=== PATIENT | female | born 1970 | race Caucasian/White ===

== ENCOUNTER 2020-10-26 12:02 | Inpatient (IN) | payer MEDICAID, SELFPAY ==
[2020-10-26 12:05] VITALS: BP 154/86; PULSE 108; RESP 18; TEMP 37.3; O2SAT 100; BMI 24.9
--- NOTE | 2020-10-26 14:50 | ECG_ITS ---
Test Reason : PALPITATIONS Blood Pressure : / mmHG Vent. Rate : 088 BPM Atrial Rate : 088 BPM P-R Int : 150 ms QRS Dur : 092 ms QT Int : 410 ms P-R-T Axes : 022 003 000 degrees QTc Int : 496 ms Normal sinus rhythm Prolonged QT Abnormal ECG When compared with ECG of 10-JUN-2018 02:28, No significant change was found Referred By: Jenni Duffy Electronically Signed By:ROGERIO SIMMONS MD
--- NOTE | 2020-10-26 14:51 | XR_ITS ---
EXAMINATION: XR CHEST CLINICAL INFORMATION: Palpitations COMPARISON: 07/11/2017 TECHNIQUE: Frontal view of the chest was obtained. FINDINGS: No significant abnormality is noted involving the heart, lungs, mediastinum, bony thorax or soft tissues. XR/XR chest 1V IMPRESSION: Unremarkable examination.
--- NOTE | 2020-10-26 14:51 | CT_ITS ---
EXAMINATION: CT ABDOMEN AND PELVIS WITH CONTRAST CLINICAL INFORMATION: Abdominal pain, nausea and vomiting COMPARISON: 05/02/2018 TECHNIQUE: Multidetector volumetric images were obtained from the superior aspect of the liver through the pubic symphysis following administration 85 mL of Omnipaque 350 intravenous contrast. Sagittal and coronal reformatted images were obtained on the technologist's workstation. Oral contrast: No This CT examination was performed using dose optimization techniques as appropriate, variously including the following: *Automated exposure control *Adjustment of mA and/or kV according to patient size (this includes techniques or standardized protocols for targeted exams where dose is matched to indication/reason for exam; i.e. extremities or head) *Use of iterative reconstruction technique DLP: 564 mGy-cm FINDINGS: LUNG BASES: The visualized lung bases are unremarkable. LIVER, GALLBLADDER, AND BILIARY TREE: Liver normal in size showing a lobular surface contour and severe diffuse hepatic steatosis. No focal liver lesions. No intra or extrahepatic biliary dilatation. Gallbladder unremarkable. PANCREAS: Unremarkable. SPLEEN: Unremarkable. ADRENAL GLANDS: Unremarkable. KIDNEYS AND URETERS: The kidneys are normal in size, shape, and attenuation. No hydronephrosis, hydroureter, or calculi seen. No perinephric stranding. BLADDER: Unremarkable. GASTROINTESTINAL TRACT: The small and large bowel are unremarkable. The appendix is unremarkable. ABDOMINAL WALL: No significant hernia is appreciated. LYMPH NODES: Normal. VASCULAR: Unremarkable. PELVIC VISCERA: There are 2 fibroids within the uterus measuring 1.6 and 1.8 cm. OSSEOUS STRUCTURES: Unremarkable. CT/CT abdomen pelvis w con IMPRESSION: * Severe diffuse hepatic steatosis, new from the prior examination. Also new is the lobular hepatic surface contour and mildly increased size of liver since the prior examination; findings which suggest steatohepatitis. * Leiomyomatous uterus with slight interval decrease in size of the dominant 2 fibroids since the previous exam.
--- NOTE | 2020-10-26 15:19 | MHC.CARE ---
CARE Team spoke with provider who reported Pt is interested in detox for opiates and alcohol. CARE Team contacted [facility] - current bed and will add Pt to the list. [facility] is only taking walk-ins at this time.
[2020-10-26 15:54] LABS: Basophils Percent Auto 0.4 % (0-2); Eosinophils Percent Auto 0.2 % (0-4); Mean Corpuscular HGB Conc 34.4 g/dl (31.0-35.0); Mean Corpuscular Hemoglobin 33.8 pg (27.0-33.0); Mean Platelet Volume 10.1 fL (9.4-12.3); Monocytes Absolute Auto 0.6 X10*3/uL (0.1-1.2); PLT CLUMP 1; Red Cell Distribution Width 11.3 % (11.0-16.0); SCAN SMEAR FLAG 1
[2020-10-26 15:56] LABS: Hematocrit 41.8 % (37-47); Hemoglobin 14.4 g/dl (12.0-16.0); Imm Gran Abs Auto 0.03 X10*3/uL (0.00-0.03); Imm Gran Pct Auto 0.5 % (0.0-0.4); Lymphocytes Absolute Auto 0.5 X10*3/uL (1.2-4.9); Lymphocytes Percent Auto 9.1 % (20-40); Mean Corpuscular Volume 98.1 fL (80-98); Neutrophils Absolute Auto 4.5 X10*3/uL (2.0-8.3); Neutrophils Percent Auto 79.8 % (45-73); Platelet Count 104 X10*3/uL (160-400); Red Blood Count 4.26 X10*6/uL (4.20-5.50); White Blood Count 5.6 X10*3/uL (4.8-10.8)
[2020-10-26] MEDS: LORazepam 2 MG/ML VIAL 1 MG IVPUSH (15:59)
[2020-10-26] MEDS: 0.9 % Sodium Chloride 1,000 ML 999 ML IVCONT (15:59)
[2020-10-26 16:00] LABS: INTERNATIONAL NORM RATIO 1.3 (0.9-1.1); MANUAL DIFF FLAG SCAN; Prothrombin Time 15.3 SEC (10.8-13.0)
[2020-10-26] MEDS: Famotidine/PF 20 MG/2 ML VIAL IVPUSH (16:00)
[2020-10-26] MEDS: Magnesium Hydrox/Alum Hydrox 30 ML ORAL.SUSP PO (16:00)
[2020-10-26 16:03] LABS: Partial Thromboplastin Time 37.4 SEC (24.1-38.0)
[2020-10-26] MEDS: Metoclopramide HCl 10 MG/2 ML VIAL IVPUSH (16:15)
--- NOTE | 2020-10-26 16:21 | ED_ITS ---
HPI - General Adult General Chief complaint: General Medical Stated complaint: vomiting Time Seen by Provider: 10/26/20 14:34 Source: patient Mode of arrival: ambulatory History of Present Illness HPI narrative: 49-year-old female with a past medical history ETOH/substance abuse presenting to the ED complaining of withdrawal symptoms, and requesting detox. Reports feeling tremulous, abdominal cramping, nausea, vomiting, decreased p.o. intake, chest discomfort/palpitations x 3 days. Admits to usually drinking a pt of vodka and wine daily, last drink was 3 days ago. Also reports using about 10 bags of heroin daily, last use 3 days ago. Denies SI/HI. Also admits to tingling in feet x months, does report previously injecting heroin into feet, and since feels like they are sleeping. Denies injury/trauma, fever, chills, contact with COVID-19, SOB, cough, dysuria. Denies history of DTs/seizure Onset (ago): day(s) Related Data Allergies Allergy/AdvReac Type Severity Reaction Status Date / Time SEASONAL ALLERGIES Allergy Unknown SNEEZING, Uncoded 07/18/20 17:10 ITCHING Review of Systems Review of Systems: Constitutional: No Weight loss, No Fever, No Chills, No Night Sweats, No Fatigue, No Malaise ENT/Mouth: No Nasal Congestion, No Sinus Pain, No Hoarseness, No sore throat, No Rhinorrhea Cardiovascular: + Chest Pain, No SOB, No Dyspnea on Exertion, No Edema, + Palpitations Respiratory: No Cough, No Sputum, No Wheezing, No Smoke Exposure, No Dyspnea Gastrointestinal: + Nausea, + Vomiting, No Diarrhea, No Constipation, + Abdominal pain Genitourinary: No irregular bleeding, No Dysuria, No Urinary Frequency, No Hematuria Musculoskeletal: No joint pain, No Myalgias, No Joint Swelling Skin: No Skin Lesions, No rash Psych:, No Depression, No SI/HI Yes all other systems are reviewed and are negative PMFSH Past Medical History Attestation statement: The following information was validated with the patient. Medical History (Updated 10/26/20 @ 16:31 by SUSAN Hernandez) delivery delivered Social History Social History Advance Directives: No Advance Directives Information Provided: No Physical Exam Vital Signs: Vital Signs: Last Vital Signs Temp 99.1 F 10/26/20 16:28 Pulse 90 10/26/20 16:28 Resp 24 H 10/26/20 16:28 BP 122/67 10/26/20 16:28 Pulse Ox 95 10/26/20 16:28 Body Mass Index 24.9 Const: Other: Tremulous General: cooperative and anxious Orientation/consciousness: patient oriented x3 Limitations: no limitations HENMT: Head: Yes normal to inspection Ears: hearing grossly normal bilaterally General nose exam: Normal external nose present Face and sinus: Yes normal facial exam Mouth: Normal oral and palatal mucosa present Eyes: General: appearance normal, both eyes and all related structures EOM: EOMs intact bilaterally Neck: Neck: Yes normal visual inspection and Yes no meningeal signs Resp: Effort & Inspection: normal respiratory effort Auscultation: clear to auscultation bilaterally, no rhonchi and no wheezes Cardio: Rate: regular rate Heart sounds: S1 normal heart sound present and S2 normal heart sound present Peripheral pulses: dorsalis pedis present GI: Inspection: Yes normal to inspection Palpation (GI): Soft to palpation, Tenderness to palpation present (GI) (Diffusely), no guarding and not rigid : General: Yes no CVA tenderness Back/Spine/Pelvis: Back: no CVA tenderness Skin: Rashes: no rashes Wounds: no wounds Neuro: Other: Sensation intact to light touch throughout General: patient oriented x3, tone normal, moves all extremities, no meningeal signs and no focal motor deficits Extrem: Other: Lower extremities are vascularly intact. Sensation intact. Full range of motion intact. No calf tenderness, swelling, or deformity General: Yes normal to inspection Course Course Course Narrative: * Bilirubin/AST/ALT elevated likely chronically from alcohol abuse likely from dehydration/ETOH * CXR unremarkable 1699--ED care transferred to [facility] pending remaining labs, CT AP, and care team consult for detox Medical Decision Making MDM Narrative Medical decision making narrative: 49-year-old female with a past medical history ETOH/substance abuse presenting to the ED complaining of withdrawal symptoms, and requesting detox. Reports feeling tremulous, abdominal cramping, nausea, vomiting, decreased p.o. intake, chest discomfort/palpitations x 3 days. On exam low-grade temp 99.1?, tachycardic, tremulous, abdomen soft diffusely tender, no rebound or guarding. Concern for alcohol withdrawal vs dehydration vs intrabdominal pathology including pancreatitis/diverticulitis/appendicitis. Lower concern for ACS/PE Plan: EKG, labs, UA, CT AP, IVF/symptomatic therapy, care Team consult for detox Lab Data Result diagrams: 10/26/20 15:40 10/26/20 15:40 Labs: Lab Results 10/26/20 10/26/20 10/26/20 Range/Units 15:40 15:40 15:40 WBC 5.6 (4.8-10.8) X10*3/uL RBC 4.26 (4.20-5.50) X10*6/uL Hgb 14.4 (12.0-16.0) g/dl Hct 41.8 (37-47) % MCV 98.1 H (80-98) fL MCH 33.8 H (27.0-33.0) pg MCHC 34.4 (31.0-35.0) g/dl RDW 11.3 (11.0-16.0) % Plt Count 104 L (160-400) X10*3/uL MPV 10.1 (9.4-12.3) fL Immature Gran % (Auto) 0.5 H (0.0-0.4) % Neut % (Auto) 79.8 H (45-73) % Lymph % (Auto) 9.1 L (20-40) % [place] % (Auto) 10.0 (2-11) % Eos % (Auto) 0.2 (0-4) % Baso % (Auto) 0.4 (0-2) % Lymph # (Auto) 0.5 L (1.2-4.9) X10*3/uL [place] # (Auto) 0.6 (0.1-1.2) X10*3/uL Eos # (Auto) 0.0 (0.0-0.4) X10*3/uL Baso # (Auto) 0.0 (0.0-0.2) X10*3/uL Abs Immat Gran (auto) 0.03 (0.00-0.03) X10*3/uL Absolute Neuts (auto) 4.5 (2.0-8.3) X10*3/uL Absolute Nucleated RBC 0.000 (0.0-0.012) X10*3/uL Nucleated RBC % (auto) 0.0 (0.0-0.2) /100WBC Smear Tech's Comments VERIFIED PT 15.3 H (10.8-13.0) SEC INR 1.3 H (0.9-1.1) APTT 37.4 (24.1-38.0) SEC Sodium 134 L (135-145) mmol/L Potassium 3.7 (3.3-5.1) mmol/l Chloride 89 L (96-108) mmol/L Carbon Dioxide 27 (22-29) mmol/L Anion Gap 22 H (12-20) BUN 9 (9-16) mg/dL Creatinine 0.66 (0.5-1.4) mg/dL Estim Creat Clear Calc 94.1 Estimated GFR > 60 Random Glucose 94 (60-115) mg/dL Calcium 9.4 (8.4-10.2) mg/dL Magnesium 2.0 (1.6-2.6) mg/dL Total Bilirubin 6.1 H (0.0-1.0) mg/dL Direct Bilirubin 3.6 H (0.0-0.5) mg/dL AST 189 H (5-31) U/L ALT 73 H (0-31) U/L Alkaline Phosphatase 127 H (39-117) U/L Troponin I High Sens (<3.5-17.0) ng/L Total Protein 8.7 H (6.5-8.0) g/dL Albumin 4.5 (3.5-5.0) g/dL Lipase (8-78) U/L 10/26/20 10/26/20 Range/Units 15:40 15:40 WBC (4.8-10.8) X10*3/uL RBC (4.20-5.50) X10*6/uL Hgb (12.0-16.0) g/dl Hct (37-47) % MCV (80-98) fL MCH (27.0-33.0) pg MCHC (31.0-35.0) g/dl RDW (11.0-16.0) % Plt Count (160-400) X10*3/uL MPV (9.4-12.3) fL Immature Gran % (Auto) (0.0-0.4) % Neut % (Auto) (45-73) % Lymph % (Auto) (20-40) % [place] % (Auto) (2-11) % Eos % (Auto) (0-4) % Baso % (Auto) (0-2) % Lymph # (Auto) (1.2-4.9) X10*3/uL [place] # (Auto) (0.1-1.2) X10*3/uL Eos # (Auto) (0.0-0.4) X10*3/uL Baso # (Auto) (0.0-0.2) X10*3/uL Abs Immat Gran (auto) (0.00-0.03) X10*3/uL Absolute Neuts (auto) (2.0-8.3) X10*3/uL Absolute Nucleated RBC (0.0-0.012) X10*3/uL Nucleated RBC % (auto) (0.0-0.2) /100WBC Smear Tech's Comments PT (10.8-13.0) SEC INR (0.9-1.1) APTT (24.1-38.0) SEC Sodium (135-145) mmol/L Potassium (3.3-5.1) mmol/l Chloride (96-108) mmol/L Carbon Dioxide (22-29) mmol/L Anion Gap (12-20) BUN (9-16) mg/dL Creatinine (0.5-1.4) mg/dL Estim Creat Clear Calc Estimated GFR Random Glucose (60-115) mg/dL Calcium (8.4-10.2) mg/dL Magnesium (1.6-2.6) mg/dL Total Bilirubin (0.0-1.0) mg/dL Direct Bilirubin (0.0-0.5) mg/dL AST (5-31) U/L ALT (0-31) U/L Alkaline Phosphatase (39-117) U/L Troponin I High Sens 16.5 (<3.5-17.0) ng/L Total Protein (6.5-8.0) g/dL Albumin (3.5-5.0) g/dL Lipase 81 H (8-78) U/L Discharge Plan Discharge Clinical Impression: Alcohol withdrawal Qualifiers: Complication of substance-induced condition: with unspecified complication Qualified Code(s): F10.239 - Alcohol dependence with withdrawal, unspecified
[2020-10-26 16:22] LABS: Alanine Aminotransferase 73 U/L (0-31); Albumin Level 4.5 g/dL (3.5-5.0); Alkaline Phosphatase 127 U/L (39-117); Anion Gap 22 (12-20); Aspartate Amino Transferase 189 U/L (5-31); Bilirubin Direct 3.6 mg/dL (0.0-0.5); Bilirubin Total 6.1 mg/dL (0.0-1.0); Blood Urea Nitrogen 9 mg/dL (9-16); Calcium 9.4 mg/dL (8.4-10.2); Carbon Dioxide 27 mmol/L (22-29); Chloride 89 mmol/L (96-108); Creatinine Clr Calc Pharmacy 94.1; Estimated Glomerular Filt Rate > 60; Glucose Random 94 mg/dL (60-115); Potassium 3.7 mmol/l (3.3-5.1); Sodium 134 mmol/L (135-145); Total Protein 8.7 g/dL (6.5-8.0)
[2020-10-26 16:24] LABS: Troponin-I High Sensitivity 16.5 ng/L (<3.5-17.0)
[2020-10-26 16:28] VITALS: BP 122/67; PULSE 90; RESP 24; TEMP 37.3; O2SAT 95
[2020-10-26 16:33] LABS: Lipase 81 U/L (8-78)
[2020-10-26 16:36] LABS: SLIDE REVIEW VERIFIED
--- NOTE | 2020-10-26 16:57 | MHC.CARE ---
CARE Team followed up with Pt regarding detox referral. Pt is only interested in staying locally at this time. CARE Team updated Pt that [facility] does not have a bed however she is placed on there list. Pt is not interested in doing a walk in at [facility] detox. Pt reports she stopped drinking alcohol this past week and now would like to detox from opiates. Pt reports she is currently on [facility] through [facility]. Pt reported she would be interested in speaking with a disaster recovery manager. CARE Team to refer Pt to a disaster recovery manager and provide [facility] with updated clinical information to support referral.
[2020-10-26] MEDS: iohexoL 350 MG/ML 100 ML INFUS..BTL IV (17:26)
[2020-10-26] MEDS: LORazepam 2 MG/ML VIAL 0.5 MG IVPUSH (19:27)
[2020-10-26 19:54] LABS: COVID-19 Test Negative (Negative); IDNOW Serial# 9DD0AD1C
--- NOTE | 2020-10-26 20:06 | PM.IMHP ---
History of Present Illness Date of Service: 10/26/20 Chief Complaint: Alcohol withdrawal This is a 49-year-old female with past medical history of alcohol abuse as well as heroin abuse who presents to the hospital with complaints of withdrawal symptoms. Patient reports that she stop drinking on with the intention to detox and has now been having nausea, vomiting, diarrhea, shaking all over, jitters, nervousness, palpitations, and she also believes that she had a seizure episode on wednesday night as she woke up and had soiled herself with feces and she doesnt remember how or why. Patient reports that she has so many episodes of vomiting that she is now vomiting slight amount of bright red blood. She has no melena or bright red blood per rectum. She has diffuse abdominal pain from all the vomiting. Denies any chest pain, headache, change in vision, no shortness of breath, no urinary symptoms and no lower extremity She also used heroin on wednesday night after being sober for one yr. On arrival to the ED hemodynamically stable with a pulse rate of 108, respiratory rate of 18, blood pressure of 154/86, satting 100% on room air. Patient had a temperature of 99.1? Labs are significant for WBC count of 5.6, hemoglobin of 14.4, PT of 15.3, INR of 1.3, sodium of 134, BUN of 9, creatinine of 0.66, total bili of 6.1, direct bili of 3.6, AST of 189, ALT of 73, alk-phos 127 on lipase of 81. COVID negative, Which shows severe diffuse hepatic steatosis new from the prior examination in 2018, Past medical history: Alcohol abuse, heroin abuse, depression Surgical history: Family history: Does not know Social history: Comes from home, lives with her 14-year-old daughter, denies tobacco, drinks all day including vodka and wine, denies any history of withdrawal seizures. uses heroin but is also on Suboxone Review of Systems Review of Systems: Yes all other systems are reviewed and are negative [facility] Medical History (Updated 10/26/20 @ 20:24 by Verona Jarvis MD) delivery delivered Opioid abuse Social History Alcohol intake: former Smoking Status: Smoker, status unknown Use of substances other than those prescribed or required for medical reasons: Yes Substance Use Type: IV Drugs Substance Use Frequency: Chronic Longstanding Advance Directives: No Advance Directives Information Provided: No Meds Allergies Allergy/AdvReac Type Severity Reaction Status Date / Time SEASONAL ALLERGIES Allergy Unknown SNEEZING, Uncoded 07/18/20 17:10 ITCHING Home Medications Medication Instructions Recorded Confirmed Type buprenorphine-naloxone [Suboxone] 1 film BUCCAL DAILY 10/26/20 10/26/20 History Physical Exam Vital Signs and Narrative: Vital Signs: Last Vital Signs Temp 99.1 F 10/26/20 16:28 Pulse 90 10/26/20 16:28 Resp 24 H 10/26/20 16:28 BP 122/67 10/26/20 16:28 Pulse Ox 95 10/26/20 16:28 Body Mass Index 24.9 Const: Other: Ill-appearing General: cooperative and no acute distress Orientation/consciousness: patient oriented x3 Eyes: General: appearance normal, both eyes and all related structures Resp: Effort & Inspection: normal respiratory effort and able to speak in complete sentences Cardio: Rate: regular rate Rhythm: regular rhythm GI: Palpation (GI): Soft to palpation Auscultation: normal bowel sounds Skin: General skin exam: no rashes or lesions noted Neuro: General: patient oriented x3 Cognition (Neuro): normal cognition Extrem: General: Yes normal to inspection and Yes no pedal edema Results Labs CBC and Chem 7: 10/26/20 15:40 10/26/20 15:40 Labs: Laboratory Results - last 24 hr 10/26/20 10/26/20 10/26/20 15:40 15:40 15:40 MCV 98.1 H MCH 33.8 H MCHC 34.4 RDW 11.3 Plt Count 104 L MPV 10.1 Immature Gran % (Auto) 0.5 H Neut % (Auto) 79.8 H Lymph % (Auto) 9.1 L [place] % (Auto) 10.0 Eos % (Auto) 0.2 Baso % (Auto) 0.4 Lymph # (Auto) 0.5 L [place] # (Auto) 0.6 Eos # (Auto) 0.0 Baso # (Auto) 0.0 Abs Immat Gran (auto) 0.03 Absolute Neuts (auto) 4.5 Absolute Nucleated RBC 0.000 Nucleated RBC % (auto) 0.0 Smear Tech's Comments VERIFIED PT 15.3 H INR 1.3 H APTT 37.4 Anion Gap 22 H Estim Creat Clear Calc 94.1 Estimated GFR > 60 Random Glucose 94 Calcium 9.4 Magnesium 2.0 Total Bilirubin 6.1 H Direct Bilirubin 3.6 H AST 189 H ALT 73 H Alkaline Phosphatase 127 H Troponin I High Sens Total Protein 8.7 H Albumin 4.5 Lipase COVID-19 ([facility]) COVID-19 Clin Com 10/26/20 10/26/20 10/26/20 15:40 15:40 19:32 MCV MCH MCHC RDW Plt Count MPV Immature Gran % (Auto) Neut % (Auto) Lymph % (Auto) [place] % (Auto) Eos % (Auto) Baso % (Auto) Lymph # (Auto) [place] # (Auto) Eos # (Auto) Baso # (Auto) Abs Immat Gran (auto) Absolute Neuts (auto) Absolute Nucleated RBC Nucleated RBC % (auto) Smear Tech's Comments PT INR APTT Anion Gap Estim Creat Clear Calc Estimated GFR Random Glucose Calcium Magnesium Total Bilirubin Direct Bilirubin AST ALT Alkaline Phosphatase Troponin I High Sens 16.5 Total Protein Albumin Lipase 81 H COVID-19 ([facility]) Negative COVID-19 Clin Com See Note Imaging Radiologist's Impressions: Impressions Abdomen/Pelvis CT 10/26/20 14:51 IMPRESSION: * Severe diffuse hepatic steatosis, new from the prior examination. Also new is the lobular hepatic surface contour and mildly increased size of liver since the prior examination; findings which suggest steatohepatitis. * Leiomyomatous uterus with slight interval decrease in size of the dominant 2 fibroids since the previous exam. Chest X-Ray 10/26/20 14:51 IMPRESSION: Unremarkable examination. Assessment and Plan (1) Alcohol withdrawal: Qualifiers: Complication of substance-induced condition: with unspecified complication Qualified Code(s): F10.239 - Alcohol dependence with withdrawal, unspecified Status: Acute (2) Opioid abuse: Status: Acute This is a 49-year-old female with past medical history of alcohol and opioid abuse who presents to the hospital withdrawal. Patient reports that she quit drinking on and may have had a seizure episode on Wednesday night. # alcohol withdrawal - patient started on phenobarbital in the ED will continue - thiamine, folic acid - patient is also interested in detoxing completely therefore care team is consulted # opioid abuse - patient reports that she was sober for 1 year, was started on Suboxone, but the labs on Wednesday night - will start on hydroxyzine and clonidine for withdrawal symptoms - continue Suboxone # hemoptysis - most likely secondary to Coco-Mendoza in the setting of frequent vomiting - H&H stable - will start her on Prilosec 20 b.i.d. - and monitor for any recurrent bleed - follow H&H daily unless has acute bleed # vomiting - secondary to withdrawal, started on Zofran DVT prophylaxis: SCDs as patient did have hemoptysis
[2020-10-26 20:25] VITALS: BP 139/70; PULSE 93; RESP 22; O2SAT 95
[2020-10-26] MEDS: PHENobarbitaL sodium 130 MG/ML VIAL 175 MG IM (20:27)
[2020-10-26 22:12] VITALS: BP 146/80; PULSE 98; RESP 18; TEMP 36.2; O2SAT 95
[2020-10-26] MEDS: 0.9 % Sodium Chloride 1,000 ML 100 ML IVCONT (22:43)
[2020-10-26] MEDS: Thiamine HCL 100 MG TABLET PO (22:50)
[2020-10-26] MEDS: Folic Acid 1 MG TABLET PO (22:50)
[2020-10-26] MEDS: Flu Vacc QS2020-21(6mos up)/PF 0.5 ML SYRINGE IM (22:50)
[2020-10-26] MEDS: PHENobarbitaL sodium 130 MG/ML VIAL 131 MG IM (22:54)
[2020-10-26 23:36] VITALS: BP 134/80; PULSE 103; RESP 19; TEMP 37; O2SAT 94
[2020-10-27 02:15] VITALS: BP 138/69; PULSE 78; RESP 18; O2SAT 98
[2020-10-27] MEDS: PHENobarbitaL sodium 130 MG/ML VIAL 131 MG IM (02:27)
[2020-10-27 03:19] VITALS: RESP 18
[2020-10-27 05:57] LABS: Basophils Percent Auto 0.7 % (0-2); Eosinophils Percent Auto 0.2 % (0-4); Hematocrit 39.2 % (37-47); Hemoglobin 13.3 g/dl (12.0-16.0); MANUAL DIFF FLAG SCAN; Mean Corpuscular HGB Conc 33.9 g/dl (31.0-35.0); Monocytes Percent Auto 11.6 % (2-11); PLT CLUMP 1; SCAN SMEAR FLAG 1
[2020-10-27 05:59] LABS: Imm Gran Abs Auto 0.01 X10*3/uL (0.00-0.03); Imm Gran Pct Auto 0.2 % (0.0-0.4); Lymphocytes Percent Auto 22.6 % (20-40); Mean Corpuscular Hemoglobin 33.5 pg (27.0-33.0); Mean Corpuscular Volume 98.7 fL (80-98); Mean Platelet Volume 10.5 fL (9.4-12.3); Monocytes Absolute Auto 0.5 X10*3/uL (0.1-1.2); Neutrophils Absolute Auto 2.8 X10*3/uL (2.0-8.3); Neutrophils Percent Auto 64.7 % (45-73); Red Blood Count 3.97 X10*6/uL (4.20-5.50); Red Cell Distribution Width 11.1 % (11.0-16.0); White Blood Count 4.4 X10*3/uL (4.8-10.8)
[2020-10-27 06:10] LABS: Platelet Count 83 X10*3/uL (160-400)
[2020-10-27 06:24] LABS: Anion Gap 14 (12-20); Blood Urea Nitrogen 9 mg/dL (9-16); Calcium 8.5 mg/dL (8.4-10.2); Carbon Dioxide 27 mmol/L (22-29); Chloride 98 mmol/L (96-108); Creatinine Clr Calc Pharmacy 95.5; Estimated Glomerular Filt Rate > 60; Glucose Random 97 mg/dL (60-115); Potassium 3.8 mmol/l (3.3-5.1); Sodium 135 mmol/L (135-145)
[2020-10-27] MEDS: Omeprazole 20 MG CAPSULE.DR PO ×2 (06:39→16:34)
[2020-10-27 07:01] LABS: Glucose Urine UA NEG (NEG); Leukocyte Esterase Urine NEG (NEG); Nitrite Urine NEG (NEG); PH 8.5 (5.0-8.0); Specific Gravity - Urine 1.015 (1.005-1.025); Urine Blood NEG (NEG); Urine Ketones 40 MG/DL (NEG); Urine Protein NEG (NEG-TRACE)
[2020-10-27 07:06] LABS: Appearance Urine CLEAR; Color Urine DARK YELLOW
[2020-10-27 07:26] VITALS: BP 140/82; PULSE 98; RESP 18; TEMP 36.4; O2SAT 96
[2020-10-27 07:33] LABS: Amphetamine Screen Urine Not Detected (Not Detect); Barbiturates, Urine POSITIVE (Not Detect); Benzodiazepines Screen Urine Not Detected (Not Detect); Cannabinoid Screen Urine Not Detected (Not Detect); Cocaine Screen Urine Not Detected (Not Detect); Opiate Screen Urine POSITIVE (Not Detect); Phencyclidine Screen Urine Not Detected (Not Detect)
[2020-10-27] MEDS: 0.9 % Sodium Chloride 1,000 ML 100 ML IVCONT ×2 (07:46→17:25)
[2020-10-27 08:06] LABS: SLIDE REVIEW VERIFIED
[2020-10-27] MEDS: PHENobarbitaL 30 MG TABLET 45 MG PO ×2 (09:14→21:11)
[2020-10-27] MEDS: Thiamine HCL 100 MG TABLET PO (09:14)
[2020-10-27] MEDS: Folic Acid 1 MG TABLET PO (09:14)
[2020-10-27] MEDS: Buprenorphine/Naloxone 8/2 mg FILM 1 FILM BUCCAL (09:15)
--- NOTE | 2020-10-27 10:00 | MHC.CM.PN ---
PATIENT IS INDEPENDENT WITH HER ADLS. NO DME OR VNA SERVICES. SHE MAY REQUIRE A WORK NOTE UPON DISCHARGE. PATIENT LIVES ALONE. SHE STATES THAT HER 14 YEAR OLD DAUGHTER LIVES WITH THE MATERNAL GRANDMOTHER. SHE REPORTS THAT THIS [employer] WAS PARTICULARLY DIFFICULT, SHE IS NOT ABLE TO SEE HER DAUGHTER OR MOTHER DUE TO COVID CONCERNS. PATIENT IS ASKING TO BE ABLE TO GET SOME SLEEP, SHE REPORTS HAVING VERY LITTLE SLEEP IN THE PAST 3 DAYS. SHE IS AWARE THAT CASE MANAGEMENT CAN ASSIST WITH HCP DOCUMENTATION ONCE SHE IS FEELING BETTER
--- NOTE | 2020-10-27 10:07 | HO.PM.IMPN ---
Subjective Subjective Date of Service: 10/27/20 Interval History: Seen in f/u for alcohol withdrawal and alcoholic gastritis ROS: no nausea, abdominal pain, no confusion, has tremors Physical Exam Vital Signs: Vital Signs: Last Vital Signs Temp 97.6 F 10/27/20 07:26 Pulse 98 10/27/20 07:26 Resp 18 10/27/20 07:26 BP 140/82 H 10/27/20 07:26 Pulse Ox 96 10/27/20 07:26 Body Mass Index 24.9 General: AO X 3, no acute distress Resp: CTA bilateral CVS: S1,S2,RRR GI: +BS, mild epig tenderness, no distention Skin: No rash Neuro: motor grossly intact, noted tremors in hands Psych: appropriate affect Objective Data Current Medications Generic Name Dose Route Start Last Admin Trade Name Freq PRN Reason Stop Dose Admin Acetaminophen 650 mg 10/26/20 20:19 Acetaminophen 325 Mg Tablet PO Q6H PRN Pain, Mild (Pain Scale 1-3) Buprenorphine/Naloxone 1 film 10/27/20 09:00 10/27/20 09:15 Buprenorphine/Naloxone 8/2 Mg Film BUCCAL 1 film DAILY MARYANNE Administration Clonidine HCl 0.05 mg 10/26/20 20:19 Clonidine Hcl 0.1 Mg Tablet PO BID PRN withdrawal Protocol Docusate Sodium 100 mg 10/26/20 22:11 Docusate Sodium 100 Mg Capsule PO DAILY PRN Constipation Folic Acid 1 mg 10/26/20 20:30 10/27/20 09:14 Folic Acid 1 Mg Tablet PO 1 mg DAILY MARYANNE Administration Hydroxyzine HCl 25 mg 10/26/20 20:19 Hydroxyzine Hcl 25 Mg Tablet PO Q8H PRN anxiety/restlessness Sodium Chloride 1,000 mls @ 100 mls/hr 10/26/20 20:30 10/27/20 07:46 Ns IVCONT 100 mls/hr .Q10H MARYANNE Administration Omeprazole 20 mg 10/27/20 06:30 10/27/20 06:39 Omeprazole 20 Mg Capsule. PO 20 mg BID@0630,1630 MARYANNE Administration Ondansetron HCl 4 mg 10/26/20 20:19 Ondansetron Hcl 4 Mg/2 Ml Vial IVPUSH Q8H PRN Nausea and Vomiting Pharmacy Consult 1 each 10/26/20 20:02 Consult Rx Perform Med Rec MISCELLANE ONCE PRN Consult order Phenobarbital 45 mg 10/27/20 09:00 10/27/20 09:14 Phenobarbital 30 Mg Tablet PO 10/28/20 21:01 45 mg BID MARYANNE Administration Phenobarbital 30 mg 10/29/20 09:00 Phenobarbital 30 Mg Tablet PO 10/30/20 21:01 BID MARYANNE Phenobarbital 30 mg 10/31/20 09:00 Phenobarbital 30 Mg Tablet PO 11/01/20 09:01 DAILY MARYANNE Sodium Chloride 3 ml 10/27/20 00:00 10/27/20 07:46 0.9 % Sodium Chloride Flush 3 Ml Syringe IVFLUSH Not Given QSHIFT MARYANNE Thiamine HCl 100 mg 10/26/20 20:30 10/27/20 09:14 Thiamine Hcl 100 Mg Tablet PO 100 mg DAILY MARYANNE Administration Labs CBC & Chem 7: 10/27/20 05:42 10/27/20 05:42 Assessment and Plan (1) Alcohol withdrawal: Status: Acute (2) Opioid abuse: Status: Acute Assessment and Plan: 49-year-old female with past medical history of alcohol and opioid abuse who presents to the hospital withdrawal. Patient reports that she quit drinking on and may have had a seizure episode on Wednesday night--Normally drinks alot . # alcohol withdrawal with likely withdrawal seizure - continue phenobarbital - thiamine, folic acid - patient is also interested in detoxing completely therefore CARE consult # opioid abuse - patient reports that she was sober for 1 year, was started on Suboxone, but relapsed 2 days ago - hydroxyzine and clonidine for withdrawal symptoms - continue Suboxone -Addiction consult tomorrow # hemoptysis - most likely secondary to Coco-Mendoza in the setting of frequent vomiting - H&H stable - IV Pepcid x today and oral PPI starting tomorrow - and monitor for any recurrent bleed - If not improving then GI consult # vomiting - secondary to withdrawal and probably alcoholic gastritis - Zofran PRN DVT prophylaxis: SCDs as patient did have hemoptysis
[2020-10-27] MEDS: Famotidine/PF 20 MG/2 ML VIAL IVPUSH ×2 (12:15→21:10)
[2020-10-27 14:00] VITALS: BP 133/85; PULSE 94; RESP 18; TEMP 37.1; O2SAT 97
[2020-10-27 15:45] VITALS: BP 135/82; PULSE 86; RESP 18; TEMP 37.1; O2SAT 96
--- NOTE | 2020-10-27 18:06 | MHC.RECOVSUP ---
Meet with Patient, Patient refused any services.. stating I just had a relapse. I'm going back on MAT( Suboxone) and i just spoke with my sponsor.
[2020-10-27] MEDS: Melatonin 3 MG TABLET 6 MG PO (22:12)
[2020-10-28] VITALS: BP 147/90; PULSE 93; RESP 18; TEMP 37.4; O2SAT 96
[2020-10-28] MEDS: 0.9 % Sodium Chloride Flush 3 ML SYRINGE IVFLUSH (00:50)
[2020-10-28] MEDS: Omeprazole 20 MG CAPSULE.DR PO (05:57)
[2020-10-28 06:48] LABS: Hematocrit 40.6 % (37-47); Hemoglobin 13.7 g/dl (12.0-16.0); Mean Corpuscular HGB Conc 33.7 g/dl (31.0-35.0); Mean Corpuscular Hemoglobin 33.6 pg (27.0-33.0); Mean Corpuscular Volume 99.5 fL (80-98); Red Blood Count 4.08 X10*6/uL (4.20-5.50); White Blood Count 5.4 X10*3/uL (4.8-10.8)
[2020-10-28 06:54] LABS: Platelet Count 87 X10*3/uL (160-400)
[2020-10-28 07:29] VITALS: BP 139/87; PULSE 98; RESP 18; TEMP 36.6; O2SAT 97
[2020-10-28] MEDS: Buprenorphine/Naloxone 8/2 mg FILM 1 FILM BUCCAL (09:26)
[2020-10-28] MEDS: PHENobarbitaL 30 MG TABLET 45 MG PO (09:27)
[2020-10-28] MEDS: Thiamine HCL 100 MG TABLET PO (09:28)
[2020-10-28] MEDS: Folic Acid 1 MG TABLET PO (09:29)
--- NOTE | 2020-10-28 09:29 | P.DS_ITS ---
DS: Providers Provider Date of admission: 10/26/20 20:02 Primary care physician: Alice Martinez MD Consults: 10/26/20 14:50 Consult to Care Team Stat Comment: Reason for consultation: detox DS: Diagnosis Discharge Diagnosis (1) Alcohol withdrawal: Status: Acute (2) Opioid abuse: Status: Acute DS: Medications Discharge Medications Home Medications: Home Medications Medication Instructions Recorded Confirmed buprenorphine-naloxone [Suboxone] 1 film BUCCAL DAILY 10/26/20 10/26/20 DS: Summary Hospital Course Hospital Course: 49-year-old female with past medical history of alcohol and opioid abuse who presents to the hospital withdrawal. Patient reports that she quit drinking on and may have had a seizure episode on Wednesday night--Normally drinks alot . # alcohol withdrawal with likely withdrawal seizure--Treated with Phenobarbital and vitamin and presently not withdrawing. Advised to avoid drinking alcohol and to seek help with resources given by CARE team. And to avoid driving at least 3 months seizure free # opioid abuse - patient reports that she was sober for 1 year, was started on Suboxone, but relapsed 2 days ago - hydroxyzine and clonidine for withdrawal symptoms - continue Suboxone -offer addiction consult but not interested at this time # hemoptysis - most likely secondary to Coco-Mendoza in the setting of frequent vomiting - H&H stable--No further epsisodes # vomiting - secondary to withdrawal and probably alcoholic gastritis, treated with Zofran prn. #Fattty liver disease/elevated LFTS to avoid alcohol, tyelenol Status at Discharge Functional status at discharge: independent ambulation Time Spent with Patient Time attestation: Total time spent providing and/or coordinating discharge services: Physical Exam Vital Signs: Vital Signs: Last Vital Signs Temp 97.9 F 10/28/20 07:29 Pulse 98 10/28/20 07:29 Resp 18 10/28/20 07:29 BP 139/87 10/28/20 07:29 Pulse Ox 97 10/28/20 07:29 Body Mass Index 24.9 General: AO X 3, no acute distress Resp: CTA bilateral CVS: S1,S2,RRR GI: +BS, NT, no distention Skin: No rash Neuro: motor grossly intact Psych: appropriate affect a DS: Data Data Completed and Pending Labs on day of discharge: 10/26/20 14:50 ECG 12 lead EKG Stat EKG Documentation DIRECTED Famotidine/PF [Pepcid/PF] 20 mg IVPUSH ONCE ONE Magnesium Hydrox/Alum Hydrox [Maalox] 30 ml PO ONCE ONE ondansetron HCL [Zofran] 4 mg IVPUSH ONCE ONE 10/26/20 14:51 CT abdomen pelvis w con Stat XR chest 1V Stat 10/26/20 14:52 LORazepam [Ativan] 1 mg IVPUSH ONCE ONE 10/26/20 15:00 0.9 % Sodium Chloride [Ns] 1,000 ml IVCONT 999 mls/hr 10/26/20 15:40 Basic Metabolic Panel Stat Complete Blood Count Auto Diff Stat Lipase Stat Liver Panel Stat Magnesium Stat Partial Thromboplastin Time Stat Prothrombin Time INR Stat SLIDE REVIEW Stat Troponin-I High Sensitivity Stat 10/26/20 15:54 Metoclopramide HCl [Reglan] 10 mg IVPUSH ONCE ONE 10/26/20 16:30 Acetaminophen [Tylenol] 650 mg PO ONCE ONE 10/26/20 17:25 iohexoL 350 MG/ML [Omnipaque 350 MG/ML] 100 ml IV ONCE ONE 10/26/20 18:30 Consult Rx EtOH Phenob Dosing 1 each MISCELLANE ONCE ONE 10/26/20 19:22 LORazepam [Ativan] 0.5 mg IVPUSH ONCE ONE 10/26/20 19:32 COVID-19 ID NOW (Bynum) Stat 10/26/20 19:45 PHENobarbitaL sodium 175 mg IM NOW STA 10/26/20 19:50 Transfer Order Routine 10/26/20 22:26 Flu Vacc [id number](6mos up)/PF [Fluarix Quad ] 0.5 ml IM .ONCE ONE 10/26/20 23:00 PHENobarbitaL sodium 131 mg IM Q3H 10/27/20 05:42 Basic Metabolic Panel Routine Complete Blood Count Auto Diff Routine SLIDE REVIEW Routine 10/27/20 06:51 Drug Screen Urine Stat UA CC w/rflx Micro + Cult Stat 10/27/20 10:15 Famotidine/PF [Pepcid/PF] 20 mg IVPUSH BID 10/28/20 05:55 Complete Blood Count no Diff DAILY@0600 Laboratory Last Values WBC 5.4 X10*3/uL (4.8-10.8) 10/28/20 05:55 RBC 4.08 X10*6/uL (4.20-5.50) L 10/28/20 05:55 Hgb 13.7 g/dl (12.0-16.0) 10/28/20 05:55 Hct 40.6 % (37-47) 10/28/20 05:55 MCV 99.5 fL (80-98) H 10/28/20 05:55 MCH 33.6 pg (27.0-33.0) H 10/28/20 05:55 MCHC 33.7 g/dl (31.0-35.0) 10/28/20 05:55 RDW 11.0 % (11.0-16.0) 10/28/20 05:55 Plt Count 87 X10*3/uL (160-400) L 10/28/20 05:55 MPV 11.0 fL (9.4-12.3) 10/28/20 05:55 Immature Gran % (Auto) 0.2 % (0.0-0.4) 10/27/20 05:42 Neut % (Auto) 64.7 % (45-73) 10/27/20 05:42 Lymph % (Auto) 22.6 % (20-40) 10/27/20 05:42 [place] % (Auto) 11.6 % (2-11) H 10/27/20 05:42 Eos % (Auto) 0.2 % (0-4) 10/27/20 05:42 Baso % (Auto) 0.7 % (0-2) 10/27/20 05:42 Lymph # (Auto) 1.0 X10*3/uL (1.2-4.9) L 10/27/20 05:42 [place] # (Auto) 0.5 X10*3/uL (0.1-1.2) 10/27/20 05:42 Eos # (Auto) 0.0 X10*3/uL (0.0-0.4) 10/27/20 05:42 Baso # (Auto) 0.0 X10*3/uL (0.0-0.2) 10/27/20 05:42 Abs Immat Gran (auto) 0.01 X10*3/uL (0.00-0.03) 10/27/20 05:42 Absolute Neuts (auto) 2.8 X10*3/uL (2.0-8.3) 10/27/20 05:42 Absolute Nucleated RBC 0.000 X10*3/uL (0.0-0.012) 10/28/20 05:55 Nucleated RBC % (auto) 0.0 /100WBC (0.0-0.2) 10/28/20 05:55 Smear Tech's Comments VERIFIED 10/27/20 05:42 PT 15.3 SEC (10.8-13.0) H 10/26/20 15:40 INR 1.3 (0.9-1.1) H 10/26/20 15:40 APTT 37.4 SEC (24.1-38.0) 10/26/20 15:40 Sodium 135 mmol/L (135-145) 10/27/20 05:42 Potassium 3.8 mmol/l (3.3-5.1) 10/27/20 05:42 Chloride 98 mmol/L (96-108) 10/27/20 05:42 Carbon Dioxide 27 mmol/L (22-29) 10/27/20 05:42 Anion Gap 14 (-20) 10/27/20 05:42 BUN 9 mg/dL (9-16) 10/27/20 05:42 Creatinine 0.65 mg/dL (0.5-1.4) 10/27/20 05:42 Estim Creat Clear Calc 95.5 10/27/20 05:42 Estimated GFR > 60 10/27/20 05:42 Random Glucose 97 mg/dL (60-115) 10/27/20 05:42 Calcium 8.5 mg/dL (8.4-10.2) D 10/27/20 05:42 Magnesium 2.0 mg/dL (1.6-2.6) 10/26/20 15:40 Total Bilirubin 6.1 mg/dL (0.0-1.0) H 10/26/20 15:40 Direct Bilirubin 3.6 mg/dL (0.0-0.5) H 10/26/20 15:40 AST 189 U/L (5-31) H 10/26/20 15:40 ALT 73 U/L (0-31) H 10/26/20 15:40 Alkaline Phosphatase 127 U/L (39-117) H 10/26/20 15:40 Troponin I High Sens 16.5 ng/L (<3.5-17.0) 10/26/20 15:40 Total Protein 8.7 g/dL (6.5-8.0) H 10/26/20 15:40 Albumin 4.5 g/dL (3.5-5.0) 10/26/20 15:40 Lipase 81 U/L (8-78) H 10/26/20 15:40 Urine Color DARK YELLOW 10/27/20 06:51 Urine Appearance CLEAR 10/27/20 06:51 Urine pH 8.5 (5.0-8.0) H 10/27/20 06:51 Ur Specific [place] 1.015 (1.005-1.025) 10/27/20 06:51 Urine Protein NEG MG/DL (NEG-TRACE) 10/27/20 06:51 Urine Glucose (UA) NEG MG/DL (NEG) 10/27/20 06:51 Urine Ketones 40 MG/DL (NEG) 10/27/20 06:51 Urine Blood NEG (NEG) 10/27/20 06:51 Urine Nitrite NEG (NEG) 10/27/20 06:51 Ur Leukocyte Esterase NEG (NEG) 10/27/20 06:51 Urine Opiates Screen POSITIVE (Not Detect) H 10/27/20 06:51 Ur Barbiturates Screen POSITIVE (Not Detect) H 10/27/20 06:51 Ur Phencyclidine Scrn Not Detected (Not Detect) 10/27/20 06:51 Ur Amphetamines Screen Not Detected (Not Detect) 10/27/20 06:51 U Benzodiazepines Scrn Not Detected (Not Detect) 10/27/20 06:51 Urine Cocaine Screen Not Detected (Not Detect) 10/27/20 06:51 U Marijuana (THC) Screen Not Detected (Not Detect) 10/27/20 06:51 COVID-19 (DEMARIO) Negative (Negative) 10/26/20 19:32 COVID-19 Clin Com See Note 10/26/20 19:32 Discharge Plan Discharge Anticipated Discharge Date/Time: 10/28/20 09:27 Patient Disposition: Home, Self-Care Referrals: Alice Martinez MD [Primary Care Provider] - Discharge Medications: Continued buprenorphine-naloxone [Suboxone] 8-2 mg Film 1 film BUCCAL DAILY RF: 0 Discharge Orders: Discharge Order (Routine); Ordered 10/28/20 Ordered By: Red Degroot Activity on Discharge: As tolerated Discharge Date/Time: 10/28/20 13:30 Other Ambulatory Orders: EEG ambulatory (Routine) Timeframe: 1 Week Facility: [facility] - Location: Radiology Ordered By: Red Degroot Visit Report Forms: Patient Portal Discharge page Care Plan Goals: Alcohol abstinence Health Concerns: Chrronic alcoholism and chronic opioid dependence Plan of Treatment: Avoid alcohol and ilicit opioid and follow up with detox program given by CARE. No driving for at least 3 months seizure, to have EEG done as outpatient
--- NOTE | 2020-10-28 09:39 | MHC.CM.PN ---
pt will DC home today with no services
== END 2020-10-28 13:30 | disposition home or self-care (01) | DRG 241 ==
LOC: HO.ED 18:33 → HO.S3 21:47
PROVIDERS: Nurse Practitioner Family; Physician Assistant; Admitting Provider Internal Medicine; Emergency Provider Emergency Medicine; PCP Family Medicine; Visit Provider Internal Medicine
DX: K29.20 Alcoholic gastritis without bleeding (principal); F11.20 Opioid dependence, uncomplicated; R56.9 Unspecified convulsions; K76.0 Fatty (change of) liver, not elsewhere classified; F10.239 Alcohol dependence with withdrawal, unspecified; R04.2 Hemoptysis; Z23 Encounter for immunization; Z20.828 Contact with and (suspected) exposure to other viral communicable diseases
CPT/HCPCS: 36415; 71045; 74177; 80048; 80076; 80307; 81003; 83690; 83735; 84484; 85025; 85027; 85610; 85730; 87635; 90686; 93005; 96361; 96374; 96375; 96376; 99285; J0574; J2060; J2560; J2765; Q9967

== ENCOUNTER 2021-06-12 19:39 | Emergency (ER) | payer MEDICAID, SELFPAY ==
--- NOTE | 2021-06-12 | ECG_ITS ---
Test Reason : MED CLEARANCE Blood Pressure : / mmHG Vent. Rate : 132 BPM Atrial Rate : 132 BPM P-R Int : 122 ms QRS Dur : 088 ms QT Int : 320 ms P-R-T Axes : 046 018 039 degrees QTc Int : 474 ms Artifact in tracing Sinus tachycardia Possible Left atrial enlargement Nonspecific ST abnormality Abnormal ECG No significant changes when compared with the previous EKG of 26 oct 2020 Referred By: Nayan Boyle Electronically Signed By:SHIRLEY DIOP
[2021-06-12 19:47] VITALS: BP 149/93; PULSE 112; RESP 12; TEMP 37.1; O2SAT 95; BMI 25.7
--- NOTE | 2021-06-12 20:21 | MHC.RECOVSUP ---
? Reason for consult Recovery support o Current location: [facility] o Identified substance use concern: Heroin & Alcohol - Withdrawal - Seeking ATS (detox) - Support ? Intervention: <del>o</del> <del>ATS</del> <del>bed</del> <del>search</del> <del>started/completed/in</del> <del>process</del> <del>o</del> <del>MAT</del> <del>started</del> <del>or</del> <del>to</del> <del>be</del> <del>started</del> o Community resources provided o Harm reduction discussion ? Plan: o Follow up tomorrow o Patient to follow up with [facility] after discharge ? Additional information:Patient is looking to go to detox but no bed at this time.. patient was given resources to get help in the morning.. Patient stated that she was not feeling well...
[2021-06-12 20:27] LABS: COVID-19 Test Negative (Negative)
[2021-06-12 20:58] VITALS: BP 144/91; PULSE 108; TEMP 36.6; O2SAT 93
[2021-06-12] MEDS: LORazepam 1 MG TABLET 2 MG PO (21:22)
[2021-06-12 22:18] LABS: Glucose Urine UA NEG (NEG); Leukocyte Esterase Urine NEG (NEG); Nitrite Urine NEG (NEG); Specific Gravity - Urine >= 1.030 (1.005-1.025); UACC Culture Trigger NO; Urine Blood 1+ (NEG); Urine Ketones 15 MG/DL (NEG); Urine Protein 2+ MG/DL (NEG-TRACE)
[2021-06-12 22:27] LABS: Appearance Urine HAZY; Color Urine YELLOW; UPreg QC Valid YES; Urine Pregnancy NEGATIVE (NEGATIVE)
[2021-06-12 22:37] LABS: Bacteria Urine TRACE /LPF; Mucus Urine 2+ /LPF; Squamous Epithelial Cell Urine TRACE /LPF; WBC Urine 0-2 /HPF (0-4)
[2021-06-12 22:38] LABS: Amphetamine Screen Urine Not Detected (Not Detect); Barbiturates, Urine Not Detected (Not Detect); Benzodiazepines Screen Urine Not Detected (Not Detect); Cannabinoid Screen Urine Not Detected (Not Detect); Cocaine Screen Urine POSITIVE (Not Detect); Fentanyl, urine POSITIVE (Not Detect); Opiate Screen Urine Not Detected (Not Detect); Phencyclidine Screen Urine Not Detected (Not Detect)
[2021-06-12 23:16] LABS: MANUAL DIFF FLAG NO
[2021-06-12 23:17] LABS: Basophils Percent Auto 0.6 % (0-2); Hematocrit 43.4 % (37-47); Imm Gran Abs Auto 0.06 X10*3/uL (0.00-0.03); Imm Gran Pct Auto 0.9 % (0.0-0.4); Lymphocytes Absolute Auto 1.3 X10*3/uL (1.2-4.9); Lymphocytes Percent Auto 19.6 % (20-40); Mean Corpuscular HGB Conc 34.6 g/dl (31.0-35.0); Mean Corpuscular Hemoglobin 33.5 pg (27.0-33.0); Mean Corpuscular Volume 96.9 fL (80-98); Mean Platelet Volume 9.3 fL (9.4-12.3); Monocytes Absolute Auto 0.3 X10*3/uL (0.1-1.2); Monocytes Percent Auto 4.4 % (2-11); Neutrophils Percent Auto 74.5 % (45-73); Platelet Count 155 X10*3/uL (160-400); Red Blood Count 4.48 X10*6/uL (4.20-5.50); Red Cell Distribution Width 12.3 % (11.0-16.0); White Blood Count 6.6 X10*3/uL (4.8-10.8)
[2021-06-12 23:44] LABS: Ethanol 341 mg/dL
[2021-06-12 23:51] LABS: Anion Gap 26 (12-20); Blood Urea Nitrogen 10 mg/dL (9-16); Calcium 9.1 mg/dL (8.4-10.2); Carbon Dioxide 19 mmol/L (22-29); Chloride 99 mmol/L (96-108); Creatinine Clr Calc Pharmacy 93.1; Estimated Glomerular Filt Rate > 60; Glucose Random 116 mg/dL (60-115); Magnesium 1.9 mg/dL (1.6-2.6); Potassium 3.8 mmol/L (3.3-5.1); Sodium 140 mmol/L (135-145)
--- NOTE | 2021-06-13 00:13 | PC.NURSE ---
Patient reported to provider that she needs detox help, earlier kids activities coach spoke with patient, patient sat down on the floor first and later lie down, seems attention seeking, reported palpitation, EKG done and was unremarkable, VSS, Ativan 2 mg PO administered, awaiting provider's order at this time, will continue to monitor.
--- NOTE | 2021-06-13 02:03 | ED_ITS ---
HPI - Alcohol General Chief Complaint: ETOH/Substance Use Stated Complaint: etoh Time Seen by Provider: 06/12/21 21:18 Source: patient Mode of arrival: EMS Limitations: no limitations History of Present Illness HPI narrative: 50-year-old female who presents emergency department for evaluation alcohol and opiate detox. The patient states that she drained 12 shots of vodka and inject 4 bags of heroin today. She states that she wants to be admitted for detox. She states that she is depressed. Initially she repo rted suicidal and homicidal ideation however at the time my interview, she denied being suicidal or homicidal. Patient states that she has had success here at the hospital before when she was admitted to for detox. She denied fever, chills, chest pain, shortness of breath. Related Data Home Medications Medication Instructions Recorded Confirmed buprenorphine 8 mg-naloxone 2 mg 1 film BUCCAL DAILY 10/26/20 10/26/20 sublingual film (Suboxone) Allergies Allergy/AdvReac Type Severity Reaction Status Date / Time SEASONAL ALLERGIES Allergy Unknown SNEEZING, Uncoded 07/18/20 17:10 ITCHING Review of Systems Review of Systems: Yes all other systems are reviewed and are negative [facility] Past Medical History [facility] Narrative: Past medical history: Hypertension, depression, lower extremity neuropathy, opiate use disorder, alcohol use disorder. Social history: She denies tobacco use. She does admit to drinking large amounts of alcohol daily. The patient states that she injects multiple bags of heroin daily. Medical History (Updated 06/13/21 @ 02:16 by Nayan Boyle MD) delivery delivered Opioid abuse Social History Social History Household Members: Children Housing: Apartment Do you presently have visiting nurse or other home services: No Alcohol intake: former Substance Use Type: Heroin Advance Directives: No Advance Directives Information Provided: No Patient : No service: No Current occupational status: employed Physical Exam Vital Signs: Vital Signs: Last Vital Signs Temp 98.1 F 06/13/21 02:11 Pulse 116 H 06/13/21 02:11 Resp 18 06/13/21 02:11 BP 132/91 H 06/13/21 02:11 Pulse Ox 95 06/13/21 02:11 Body Mass Index 25.7 Const: Other: Awake, alert, female, appears to be anxious, does have a strong odor of alcohol on her breath HENMT: Head: Yes normal to inspection, Yes normocephalic and Yes atraumatic Ears: external ears normal General nose exam: Normal external nose present Face and sinus: Yes normal facial exam Mouth: Normal oral and palatal mucosa present Throat: Yes posterior oropharynx normal Eyes: General: appearance normal, both eyes and all related structures Pupils: Equal, round and reactive pupils present Neck: Neck: Yes normal visual inspection, Yes no lymphadenopathy, Yes trachea midline and Yes supple Chest: Chest palpation & inspection: normal inspection of the chest and normal palpation of entire chest wall Resp: Effort & Inspection: normal respiratory effort and able to speak in complete sentences Auscultation: clear to auscultation bilaterally Cardio: Rate: regular rate Rhythm: regular rhythm Heart sounds: S1 normal heart sound present, S2 normal heart sound present and no murmurs GI: Inspection: Yes normal to inspection Palpation (GI): Soft to palpation, nontender and no guarding Auscultation: normal bowel sounds : General: Yes no CVA tenderness Back/Spine/Pelvis: Back: no CVA tenderness Skin: General skin exam: no rashes or lesions noted Neuro: Cranial nerves: Yes CN's II-XII intact bilaterally and Yes Equal, round and reactive pupils present Cognition (Neuro): normal cognition Motor exam (neuro): 5/5 motor strength present throughout Extrem: General: Yes normal to inspection Psych: Appearance: grossly normal Speech and movement: Normal speech and movement present Affect: Anxious affect present Attitude: cooperative Thought process: Normal thought process present Thought content: Normal thought content present, suicidality and no homicidality Course Course Course Narrative: 50-year-old female who presents emergency department for evaluation alcohol and opiate detox. Patient does admit to drinking large amount of alcohol and using heroin prior to coming to the emergency department. Vital signs revealed elevated blood pressure of 149/93 with an elevated pulse of 112 otherwise vital signs were normal. Patient's physical examination was otherwise unremarkable. Laboratory evaluation will be obtained. Patient initially appeared to be anxious and was given Ativan 2 mg orally. This had minimal effect on her anxiety and she was given Librium 25 mg orally. 0210: CBC revealed a low platelet count of 222278, this is chronic. Patient's bicarb was low at 19, glucose was elevated 116. Level was elevated at 341. Urine tox screen was positive for fentanyl and positive for cocaine. Urinalysis was positive for blood, microscopic revealed 5-9 RBCs. Urine test was negative. COVID-19 test was negative. The patient's laboratory evaluation is consistent with acute alcohol intoxication and the changes in her blood chemistries are consistent with her alcohol use disorder. The patient will be kept in the emergency department until she can be evaluated by legal recovery specialist to determine her rehab options. 0212: Physician observation started at 0212. Patient placed in physician observation secondary to her alcohol intoxication. The patient will need to be kept in the emergency department till she sober and can be evaluated by our legal recovery specialist determine palpation options for alcohol and opiate rehab. At the time observation was started the patient's vitals were stable, patient is slightly agitated, Neuro: nonfocal, CV RRR, Lungs clear. MDM - Alcohol Lab Data Result diagrams: 06/12/21 23:11 06/12/21 23:11 Labs: Lab Results 06/12/21 06/12/21 06/12/21 Range/Units 20:05 22:05 22:05 WBC (4.8-10.8) X10*3/uL RBC (4.20-5.50) X10*6/uL Hgb (12.0-16.0) g/dl Hct (37-47) % MCV (80-98) fL MCH (27.0-33.0) pg MCHC (31.0-35.0) g/dl RDW (11.0-16.0) % Plt Count (160-400) X10*3/uL MPV (9.4-12.3) fL Immature Gran % (Auto) (0.0-0.4) % Neut % (Auto) (45-73) % Lymph % (Auto) (20-40) % [place] % (Auto) (2-11) % Eos % (Auto) (0-4) % Baso % (Auto) (0-2) % Lymph # (Auto) (1.2-4.9) X10*3/uL [place] # (Auto) (0.1-1.2) X10*3/uL Eos # (Auto) (0.0-0.4) X10*3/uL Baso # (Auto) (0.0-0.2) X10*3/uL Abs Immat Gran (auto) (0.00-0.03) X10*3/uL Absolute Neuts (auto) (2.0-8.3) X10*3/uL Absolute Nucleated RBC (0.0-0.012) X10*3/uL Nucleated RBC % (auto) (0.0-0.2) /100WBC Sodium (135-145) mmol/L Potassium (3.3-5.1) mmol/L Chloride (96-108) mmol/L Carbon Dioxide (22-29) mmol/L Anion Gap (12-20) BUN (9-16) mg/dL Creatinine (0.5-1.4) mg/dL Estim Creat Clear Calc Estimated GFR Random Glucose (60-115) mg/dL Calcium (8.4-10.2) mg/dL Magnesium (1.6-2.6) mg/dL Urine Color YELLOW Urine Appearance HAZY Urine pH 6.0 (5.0-8.0) Ur Specific [place] >= 1.030 H (1.005-1.025) Urine Protein 2+ H (NEG-TRACE) MG/DL Urine Glucose (UA) NEG (NEG) MG/DL Urine Ketones 15 (NEG) MG/DL Urine Blood 1+ H (NEG) Urine Nitrite NEG (NEG) Ur Leukocyte Esterase NEG (NEG) Urine RBC 5-9 H (0) /HPF Urine WBC 0-2 (0-4) /HPF Ur Squamous Epith Cells TRACE /LPF Urine Bacteria TRACE /LPF Urine Mucus 2+ /LPF Urine Test NEGATIVE (NEGATIVE) Urine Opiates Screen (Not Detect) Urine Fentanyl Screen (Not Detect) Ur Barbiturates Screen (Not Detect) Ur Phencyclidine Scrn (Not Detect) Ur Amphetamines Screen (Not Detect) U Benzodiazepines Scrn (Not Detect) Urine Cocaine Screen (Not Detect) U Marijuana (THC) Screen (Not Detect) Ethyl Alcohol mg/dL COVID-19 (DEMARIO) Negative (Negative) COVID-19 Clin Com See Note 06/12/21 06/12/21 06/12/21 Range/Units 22:05 23:11 23:11 WBC 6.6 (4.8-10.8) X10*3/uL RBC 4.48 (4.20-5.50) X10*6/uL Hgb 15.0 (12.0-16.0) g/dl Hct 43.4 (37-47) % MCV 96.9 (80-98) fL MCH 33.5 H (27.0-33.0) pg MCHC 34.6 (31.0-35.0) g/dl RDW 12.3 (11.0-16.0) % Plt Count 155 L D (160-400) X10*3/uL MPV 9.3 L (9.4-12.3) fL Immature Gran % (Auto) 0.9 H (0.0-0.4) % Neut % (Auto) 74.5 H (45-73) % Lymph % (Auto) 19.6 L (20-40) % [place] % (Auto) 4.4 (2-11) % Eos % (Auto) 0.0 (0-4) % Baso % (Auto) 0.6 (0-2) % Lymph # (Auto) 1.3 (1.2-4.9) X10*3/uL [place] # (Auto) 0.3 (0.1-1.2) X10*3/uL Eos # (Auto) 0.0 (0.0-0.4) X10*3/uL Baso # (Auto) 0.0 (0.0-0.2) X10*3/uL Abs Immat Gran (auto) 0.06 H (0.00-0.03) X10*3/uL Absolute Neuts (auto) 5.0 (2.0-8.3) X10*3/uL Absolute Nucleated RBC 0.000 (0.0-0.012) X10*3/uL Nucleated RBC % (auto) 0.0 (0.0-0.2) /100WBC Sodium 140 (135-145) mmol/L Potassium 3.8 (3.3-5.1) mmol/L Chloride 99 (96-108) mmol/L Carbon Dioxide 19 L (22-29) mmol/L Anion Gap 26 H (12-20) BUN 10 (9-16) mg/dL Creatinine 0.67 (0.5-1.4) mg/dL Estim Creat Clear Calc 93.1 Estimated GFR > 60 Random Glucose 116 H (60-115) mg/dL Calcium 9.1 D (8.4-10.2) mg/dL Magnesium 1.9 (1.6-2.6) mg/dL Urine Color Urine Appearance Urine pH (5.0-8.0) Ur Specific [place] (1.005-1.025) Urine Protein (NEG-TRACE) MG/DL Urine Glucose (UA) (NEG) MG/DL Urine Ketones (NEG) MG/DL Urine Blood (NEG) Urine Nitrite (NEG) Ur Leukocyte Esterase (NEG) Urine RBC (0) /HPF Urine WBC (0-4) /HPF Ur Squamous Epith Cells /LPF Urine Bacteria /LPF Urine Mucus /LPF Urine Test (NEGATIVE) Urine Opiates Screen Not Detected (Not Detect) Urine Fentanyl Screen POSITIVE H (Not Detect) Ur Barbiturates Screen Not Detected (Not Detect) Ur Phencyclidine Scrn Not Detected (Not Detect) Ur Amphetamines Screen Not Detected (Not Detect) U Benzodiazepines Scrn Not Detected (Not Detect) Urine Cocaine Screen POSITIVE H (Not Detect) U Marijuana (THC) Screen Not Detected (Not Detect) Ethyl Alcohol mg/dL COVID-19 (DEMARIO) (Negative) COVID-19 Clin Com 06/12/21 Range/Units 23:11 WBC (4.8-10.8) X10*3/uL RBC (4.20-5.50) X10*6/uL Hgb (12.0-16.0) g/dl Hct (37-47) % MCV (80-98) fL MCH (27.0-33.0) pg MCHC (31.0-35.0) g/dl RDW (11.0-16.0) % Plt Count (160-400) X10*3/uL MPV (9.4-12.3) fL Immature Gran % (Auto) (0.0-0.4) % Neut % (Auto) (45-73) % Lymph % (Auto) (20-40) % [place] % (Auto) (2-11) % Eos % (Auto) (0-4) % Baso % (Auto) (0-2) % Lymph # (Auto) (1.2-4.9) X10*3/uL [place] # (Auto) (0.1-1.2) X10*3/uL Eos # (Auto) (0.0-0.4) X10*3/uL Baso # (Auto) (0.0-0.2) X10*3/uL Abs Immat Gran (auto) (0.00-0.03) X10*3/uL Absolute Neuts (auto) (2.0-8.3) X10*3/uL Absolute Nucleated RBC (0.0-0.012) X10*3/uL Nucleated RBC % (auto) (0.0-0.2) /100WBC Sodium (135-145) mmol/L Potassium (3.3-5.1) mmol/L Chloride (96-108) mmol/L Carbon Dioxide (22-29) mmol/L Anion Gap (12-20) BUN (9-16) mg/dL Creatinine (0.5-1.4) mg/dL Estim Creat Clear Calc Estimated GFR Random Glucose (60-115) mg/dL Calcium (8.4-10.2) mg/dL Magnesium (1.6-2.6) mg/dL Urine Color Urine Appearance Urine pH (5.0-8.0) Ur Specific [place] (1.005-1.025) Urine Protein (NEG-TRACE) MG/DL Urine Glucose (UA) (NEG) MG/DL Urine Ketones (NEG) MG/DL Urine Blood (NEG) Urine Nitrite (NEG) Ur Leukocyte Esterase (NEG) Urine RBC (0) /HPF Urine WBC (0-4) /HPF Ur Squamous Epith Cells /LPF Urine Bacteria /LPF Urine Mucus /LPF Urine Test (NEGATIVE) Urine Opiates Screen (Not Detect) Urine Fentanyl Screen (Not Detect) Ur Barbiturates Screen (Not Detect) Ur Phencyclidine Scrn (Not Detect) Ur Amphetamines Screen (Not Detect) U Benzodiazepines Scrn (Not Detect) Urine Cocaine Screen (Not Detect) U Marijuana (THC) Screen (Not Detect) Ethyl Alcohol 341 H* mg/dL COVID-19 (DEMARIO) (Negative) COVID-19 Clin Com Discharge Plan Discharge Clinical Impression: Opioid abuse, Alcoholic intoxication, Alcohol use disorder Prescriptions: No Action buprenorphine-naloxone [Suboxone] 8-2 mg Film 1 film BUCCAL DAILY RF: 0
[2021-06-13 02:11] VITALS: BP 132/91; PULSE 116; RESP 18; TEMP 36.7; O2SAT 95
[2021-06-13] MEDS: OLANZapine 5 MG TABLET PO (02:13)
--- NOTE | 2021-06-13 02:14 | PC.NURSE ---
Patient continue demanding medication for ETOH withdrawal, patient was made aware that her her blood alcohol is 345, patient once again try to place herself on the floor, provider notified/ordered olanzapine 5 mg, administered as ordered, pending effect, will continue to monitor.
[2021-06-13] MEDS: chlordiazePOXIDE HCl 25 MG CAPSULE PO (04:03)
--- NOTE | 2021-06-13 04:05 | PC.NURSE ---
Patient continuously for more medication CIWA assessed scored 12/provider notified/ordered Librium 25 mg/administered as ordered, pending effect, will continue to monitor.
[2021-06-13 06:21] VITALS: BP 158/84; PULSE 134; RESP 16; TEMP 36.3; O2SAT 96
[2021-06-13] MEDS: chlordiazePOXIDE HCl 25 MG CAPSULE 50 MG PO (06:30)
--- NOTE | 2021-06-13 06:35 | PC.NURSE ---
Patient is restless/tremulous, HR 134, BP 158/84, CIWA assessed scored 13, provider notified/ordered Librium 50 mg/administered as ordered/pending effect, will continue to monitor.
--- NOTE | 2021-06-13 07:13 | PC.NURSE ---
patient appears physically restless periodically at present (etoh/opiate wd?) appears in no acute distress at present.
--- NOTE | 2021-06-13 08:32 | MHC.RECOVSUP ---
Recovery Support note: Patient is a 50 year old Vietnamese speaking female who presented to [facility] after using heroin and alcohol seeking detox. This service writer met with patient to discuss her substance use and treatment options. Patient reports withdrawal symptoms and states she hasn't slept all night. Patient reports she came to [facility] seeking a medical admission, reporting that she was medically admitted before for detox. Discussed with patient typical circumstances surrounding medical admissions. This service writer offered to secure a detox bed at the [facility] in [place] as a female bed is available. Patient declined, stating that she has to go home to get clothes and take care of her cats. This service writer offered to arrange transportation to include a stop at her house. Patient declined, stating she really does not want to go to [place] and that she would rather discharge. This service writer discussed withdrawal symptoms and the dangers inherent in alcohol withdrawal. Patient acknowledged. Discussed case with patient's ED provider. This service writer is available if patient changes her mind regarding detox referrals.
[2021-06-13 08:41] VITALS: BP 133/79; PULSE 103; RESP 16; TEMP 37.2; O2SAT 94
[2021-06-13] MEDS: LORazepam 1 MG TABLET 2 MG PO ×2 (09:13→10:15)
== END 2021-06-13 12:05 | disposition home or self-care (01) ==
PROVIDERS: Emergency Provider Emergency Medicine Emergency Medical Services
DX: F32.9 Major depressive disorder, single episode, unspecified (principal); F11.20 Opioid dependence, uncomplicated; F10.120 Alcohol abuse with intoxication, uncomplicated; Y90.8 Blood alcohol level of 240 mg/100 ml or more; F41.9 Anxiety disorder, unspecified; Z20.822 Contact with and (suspected) exposure to COVID-19
CPT/HCPCS: 36415; 80048; 80307; 81001; 81025; 82077; 83735; 85025; 87635; 93005; 99284

== ENCOUNTER 2021-10-29 16:28 | Emergency (ER) | payer MEDICAID, SELFPAY ==
[2021-10-29] MEDS: LORazepam 2 MG/ML VIAL IM (16:46)
[2021-10-29] MEDS: Haloperidol Lactate 5 MG/ML VIAL IM (16:46)
--- NOTE | 2021-10-29 16:46 | ED.ALCOHOL ---
HPI - Alcohol General Chief Complaint: ETOH/Substance Use Stated Complaint: etoh, nausea Time Seen by Provider: 10/29/21 16:33 Source: EMS Mode of arrival: EMS Limitations: altered mental status History of Present Illness HPI narrative: Patient is brought to the emergency room by EMS. Earlier today, patient was on the phone with her cousin, who got concerned about the patient. Seems that the patient was using a lot of alcohol and mixing fentanyl and Suboxone. The patient's cousin called EMS. Initially the patient did not want to come to the hospital, EMS convince the patient, patient reluctantly agreed to come. By the time the patient arrived to the emergency room, patient started becoming agitated. Patient complaining pain all over . Denies falling Related Data Home Medications Medication Instructions Recorded Confirmed buprenorphine 8 mg-naloxone 2 mg 1 film BUCCAL DAILY 10/26/20 10/26/20 sublingual film (Suboxone) Previous Rx's Medication Instructions Recorded lorazepam 1 mg tablet (Ativan) 2 mg PO TID PRN #10 tab 06/13/21 Allergies Allergy/AdvReac Type Severity Reaction Status Date / Time SEASONAL ALLERGIES Allergy Unknown SNEEZING, Uncoded 07/18/20 17:10 ITCHING Review of Systems Review of Systems: Yes Unobtainable due to mental status and Other (Intoxicated) [facility] Past Medical History Medical History delivery delivered Opioid abuse Social History Social History Household Members: Children Housing: Apartment Do you presently have visiting nurse or other home services: No Alcohol intake: former Substance Use Type: Heroin Advance Directives: No Advance Directives Information Provided: No Patient : No service: No Current occupational status: employed Physical Exam Vital Signs: Vital Signs: Last Vital Signs Temp 98.6 F 10/29/21 20:37 Pulse 122 H 10/29/21 20:37 Resp 20 10/29/21 20:37 BP 161/87 H 10/29/21 20:37 Pulse Ox 97 10/29/21 20:37 BMI result Body Mass Index 25.7 Const: Other: Appearance: Alert. Very agitated, twisting and turning in her bed Eyes: Pupils equal, round and reactive to light. ENT: Pharynx normal. Neck: Normal inspection. Neck supple. No lymph nodes noted. No crepitus CVS: Normal heart rate and rhythm. Pulses normal. Normal S1 and S2 Respiratory: No respiratory distress. Breath sounds normal. No Wheezing. No rales Abdomen: Soft and nontender. No rigidity. No distention. Skin: Skin warm and dry. Normal skin color. Normal skin turgor. Extremities: No lower extremity edema. No lower extremity edema. No Lacerations. No Rash Neuro: Oriented X 3. No motor deficit. No sensory deficit. Moving all extermities. No slurred speech. Course Course Course Narrative: I suggested to the patient to give her some p.o. medications to help her relax. Patient requested to have IM medications. Patient was offered Ativan and Haldol, patient from was very happy with the IM medication of her. Initially patient remains restless but soon after after the medication started working, patient went to sleep. Oxygen saturation remains at 100% on room air. Patient remains stable, sleeping. Physician observation started at 19:00 21:17 patient remains sleeping. Patient is to be assess for suicidality when patient is sober. When patient was here, patient was intoxicated but denied SI or HI. And given to Dr. Her Discharge Plan Discharge Clinical Impression: Alcoholic intoxication, Substance abuse Patient Disposition: Still a Patient Prescriptions: No Action lorazepam [Ativan] 1 mg tablet 2 mg PO TID PRN (Reason: anxiety) Qty: 10 RF: 0 buprenorphine-naloxone [Suboxone] 8-2 mg Film 1 film BUCCAL DAILY RF: 0
[2021-10-29 16:48] VITALS: BP 142/84; PULSE 110; RESP 16; TEMP 37; O2SAT 100; BMI 25.7
[2021-10-29 20:37] VITALS: BP 161/87; PULSE 122; RESP 20; TEMP 37; O2SAT 97
[2021-10-29 22:28] VITALS: BP 132/93; PULSE 116; RESP 18; O2SAT 94
== END 2021-10-30 04:48 | disposition home or self-care (01) ==
PROVIDERS: Emergency Provider Emergency Medicine
DX: F10.220 Alcohol dependence with intoxication, uncomplicated (principal); Y90.9 Presence of alcohol in blood, level not specified; F11.20 Opioid dependence, uncomplicated; R45.1 Restlessness and agitation
CPT/HCPCS: 96372; 99283; 99285; J2060

== ENCOUNTER 2022-01-17 03:41 | Inpatient (IN) | payer MEDICAID, SELFPAY ==
[2022-01-17] VITALS (9 sets, daily range): BP systolic 130–146; BP diastolic 68–88; PULSE 106–120; RESP 16–23; TEMP 37.3–37.7; O2SAT 91–97; BMI 25.7
--- NOTE | ~2022-01-17 | MR_ITS ---
EXAMINATION: MR ABDOMEN WITHOUT CONTRAST CLINICAL INFORMATION: Question acute cholecystitis. COMPARISON: Abdomen and pelvic CT of 01/17/2022, 10/26/2020, 05/02/2018, 03/08/2017, 05/15/2013. Abdominal ultrasound of 05/15/2013. TECHNIQUE: MR abdomen is performed without gadolinium contrast. Dedicated MRCP images are obtained. FINDINGS: Multiple respiratory motion artifacts are present on several sequences somewhat limiting evaluation. The liver is not completely imaged. LUNG BASES: The visualized lung bases are unremarkable. LIVER, GALLBLADDER, AND BILIARY TREE: There is marked diffuse hepatic steatosis as indicated by drop in signal on T1-weighted opposed phase images compared to in-phase images. Mild liver contour nodularity is noted. There is mild hypertrophy of the left hepatic lobe. The gallbladder is mildly distended containing small layering hypointense signal in the gallbladder; may represent sludge versus combination of tiny stone/sludge. Mild gallbladder wall edema is noted. There is no evidence of intrahepatic biliary ductal dilatation. The common bile duct is dilated measuring up to 1.1 cm. The common bile duct tapers normally in the ampullary region. No filling defect is noted in the common bile duct. Tiny air focus is noted in the cystic duct. No evidence of intrahepatic biliary ductal dilatation. PANCREAS: Unremarkable. SPLEEN: Upper limits of normal for size measuring 13.1 cm. ADRENAL GLANDS: Unremarkable. KIDNEYS AND URETERS: The kidneys are normal in size and shape. No hydronephrosis. No perinephric stranding. Mild perinephric stranding is within physiologic limits. GASTROINTESTINAL TRACT: No abnormal bowel dilatation is noted. FREE FLUID: No significant ascites. Question trace perihepatic fluid. ABDOMINAL WALL: No significant hernia is appreciated. LYMPH NODES: No lymphadenopathy. VASCULAR: The aorta is normal in caliber. OSSEOUS STRUCTURES: Marrow signal normal. MR/MR MRCP IMPRESSION: Marked diffuse hepatic steatosis. Suggestion of liver contour nodularity, recommend clinical correlation for possibility of underlying cirrhosis. Distended gallbladder with mild gallbladder wall edema. Small volume sludge versus stones in the gallbladder. No intrahepatic biliary ductal dilatation. Mild dilatation of the common bile duct. No filling defect is noted in the common bile duct.
--- NOTE | ~2022-01-17 | CT_ITS ---
EXAMINATION: CT ABDOMEN AND PELVIS WITH CONTRAST CLINICAL INFORMATION: Nausea and vomiting with diffuse abdominal pain and elevated lipase COMPARISON: October 26, 2020 TECHNIQUE: Multidetector volumetric images were obtained from the superior aspect of the liver through the pubic symphysis following administration 85 mL of Omnipaque 350 intravenous contrast. Sagittal and coronal reformatted images were obtained on the technologist's workstation. Oral contrast: No This CT examination was performed using dose optimization techniques as appropriate, variously including the following: *Automated exposure control *Adjustment of mA and/or kV according to patient size (this includes techniques or standardized protocols for targeted exams where dose is matched to indication/reason for exam; i.e. extremities or head) *Use of iterative reconstruction technique DLP: 606 mGy-cm FINDINGS: LUNG BASES: There is some bibasilar atelectasis present. No pleural or pericardial effusion is seen. LIVER, GALLBLADDER, AND BILIARY TREE: There is diffuse fatty infiltration of the liver present. There is a small amount of biliary air is seen within the liver centrally. No focal hepatic mass is appreciated. No intrahepatic bile duct dilatation is seen. The gallbladder is distended. The gallbladder wall is borderline thickened at approximately 3 mm in diameter. There is a small amount of pericholecystic fluid seen medially. There is a single locule of nondependent gas within the gallbladder. Even though there is no significant pericholecystic fat stranding I believe the above appearance is likely related to acute cholecystitis. The common bile duct at the level of the pancreatic head measures up to 9 mm in diameter. PANCREAS: No pancreatic mass identified. There is some peripancreatic fat stranding about the tail of the pancreas. No pancreatic duct dilatation is seen. SPLEEN: There is mild splenomegaly present with vertical span of approximately 14 cm. ADRENAL GLANDS: Unremarkable. KIDNEYS AND URETERS: The kidneys are normal in size, shape, and attenuation. No hydronephrosis, hydroureter, or calculi seen. No perinephric stranding. BLADDER: Unremarkable. GASTROINTESTINAL TRACT: No dilated loops of large or small bowel are evident. No free air or free fluid is appreciated. No pericolonic inflammatory change appreciated. The appendix appears unremarkable. ABDOMINAL WALL: No significant hernia is appreciated. LYMPH NODES: No lymphadenopathy appreciated. VASCULAR: Visceral vessels are patent. No abdominal aortic aneurysm. Portal vein patent. PELVIC VISCERA: Unremarkable. OSSEOUS STRUCTURES: There is an inferior left pubic ramus fracture present. There is degenerative disc disease seen at the L5-S1 level. No suspicious destructive bony lesions identified. CT/CT abdomen pelvis w con IMPRESSION: Diffuse fatty infiltration of the liver with small amount of biliary air present within the liver as well as a focus of nondependent gas seen within a distended gallbladder with small amount of pericholecystic fluid. Above findings are consistent with acute cholecystitis. Dilated common bile duct to 9 mm in diameter. Mild splenomegaly. Left inferior pubic ramus fracture. I do not see evidence of this being a healed fracture. Fleischner guidelines were followed.
--- NOTE | 2022-01-17 04:41 | ED.ALCOHOL ---
HPI - Alcohol General Chief Complaint: ETOH/Substance Use Stated Complaint: Alcohol Withdrawal Time Seen by Provider: 01/17/22 04:41 Source: patient Mode of arrival: EMS Limitations: no limitations History of Present Illness HPI narrative: patient alcoholic possible for 3 years started drinking for last 1 month drinks vodka and hard liquor unable to eat or drink anything for last 2 days as having upper abdominal pain and vomiting had some streaks of blood also streaks of blood in the stool patient also feel depressed but no suicidal ideation at this time patient does not want to go to detox. Patient's last drink was 2 days ago Related Data Home Medications Medication Instructions Recorded Confirmed buprenorphine 8 mg-naloxone 2 mg 1 film BUCCAL DAILY 10/26/20 10/26/20 sublingual film (Suboxone) Previous Rx's Medication Instructions Recorded lorazepam 1 mg tablet (Ativan) 2 mg PO TID PRN #10 tab 06/13/21 lorazepam 1 mg tablet (Ativan) 1 mg PO Q4-6H PRN #14 tab 01/17/22 pantoprazole 40 mg tablet,delayed 40 mg PO DAILY #30 tab 01/17/22 release (Protonix) sucralfate 1 gram tablet 1 g PO TID #60 tab 01/17/22 Allergies Allergy/AdvReac Type Severity Reaction Status Date / Time SEASONAL ALLERGIES Allergy Unknown SNEEZING, Uncoded 07/18/20 17:10 ITCHING Review of Systems Review of Systems: Yes all other systems are reviewed and are negative PMFSH Past Medical History Medical History delivery delivered Opioid abuse Social History Social History Household Members: Children Housing: Apartment Do you presently have visiting nurse or other home services: No Alcohol intake: former Substance Use Type: Heroin Advance Directives: No Advance Directives Information Provided: No Patient : No service: No Current occupational status: employed Physical Exam ED Vital Signs: Vital Signs - 24 hr 01/17/22 03:51 01/17/22 04:00 01/17/22 05:59 Temperature 99.2 F 99.7 F 99.9 F Pulse Rate 119 H 109 H 106 H Respiratory Rate 20 16 16 Blood Pressure 141/78 H 145/68 H 146/82 H Pulse Oximetry 97 96 95 BMI result Body Mass Index 25.7 Appearance: Alert. Oriented X3. No acute distress. Eyes: PERRLA, No Nystagmus ENT: Pharynx normal. Oral Mucosa moist Neck: Normal inspection. Neck supple. CVS: Normal heart rate and rhythm. Pulses normal. Respiratory: No respiratory distress. Equal air entry bilateral, no wheezing/rales/rhonchi Abdomen: Soft , epigastric tenderness no rebound tenderness guarding Bowel sounds are present, no mass palpable, no CVA tenderness Skin: Skin warm and dry. Normal skin color. Normal skin turgor. Extremities: No lower extremity edema. No calf tenderness slight tremor Neuro: Oriented X 3. No motor deficit. No sensory deficit.No cerebellar signs , cranial nerves II-XII intact MDM - Alcohol MDM Narrative Medical decision making narrative: patient alcolic came with alcoholic gastritis feeling better now after IV hydration patient does want any help does want to go to detox will discharge patient home on Ativan and Protonix Lab Data Attestation: I reviewed the patient's lab results. Result diagrams: 01/17/22 05:08 01/17/22 05:08 Labs: Lab Results 01/17/22 01/17/22 01/17/22 Range/Units 05:08 05:08 05:08 WBC 5.1 (4.8-10.8) X10*3/uL RBC 4.75 (4.20-5.50) X10*6/uL Hgb 14.9 (12.0-16.0) g/dl Hct 45.3 (37.0-47.0) % MCV 95.4 (80.0-98.0) fL MCH 31.4 (27.0-33.0) pg MCHC 32.9 (31.0-35.0) g/dl RDW 13.9 (11.0-16.0) % Plt Count 96 L (160-400) X10*3/uL MPV 10.8 (9.4-12.3) fL Immature Gran % (Auto) 0.4 (0.0-0.4) % Neut % (Auto) 75.2 H (45-73) % Lymph % (Auto) 13.3 L (20-40) % [place] % (Auto) 10.9 (2-11) % Eos % (Auto) 0.2 (0-4) % Baso % (Auto) 0.0 (0-2) % Lymph # (Auto) 0.7 L (1.2-4.9) X10*3/uL [place] # (Auto) 0.6 (0.1-1.2) X10*3/uL Eos # (Auto) 0.0 (0.0-0.4) X10*3/uL Baso # (Auto) 0.0 (0.0-0.2) X10*3/uL Abs Immat Gran (auto) 0.02 (0.00-0.03) X10*3/uL Absolute Neuts (auto) 3.9 (2.0-8.3) x10*3/uL Absolute Nucleated RBC 0.000 (0.0-0.012) X10*3/uL Nucleated RBC % (auto) 0.0 (0.0-0.2) /100WBC Smear Tech's Comments VERIFIED Sodium 132 L (135-145) mmol/L Potassium 4.0 (3.3-5.1) mmol/L Chloride 86 L (96-108) mmol/L Carbon Dioxide 24 (22-29) mmol/L Anion Gap 26 H (12-20) BUN 25 H (9-16) mg/dL Creatinine 0.77 (0.5-1.4) mg/dL Estim Creat Clear Calc 80.1 Estimated GFR > 60 Random Glucose 95 (60-115) mg/dL Calcium 10.8 H D (8.4-10.2) mg/dL Magnesium 2.4 (1.6-2.6) mg/dL Total Bilirubin 12.7 H (0.0-1.0) mg/dL AST 515 H (5-31) U/L ALT 117 H (0-31) U/L Alkaline Phosphatase 129 H (39-117) U/L Total Protein 7.8 (6.5-8.0) g/dL Albumin 3.9 (3.5-5.0) g/dL Lipase 1193 H (8-78) U/L COVID-19 (DEMARIO) Negative (Negative) COVID-19 Clin Com See Note Discharge Plan Discharge Clinical Impression: Alcohol abuse, Alcoholic gastritis Patient Disposition: Home, Self-Care Instructions: Gastritis (ED), Abuse of Alcohol (ED) Additional Instructions: stop drinking alcohol Ativan as advised for alcohol withdrawal Protonix for gastritis report to the ER if increased abdominal pain / vomiting blood Prescriptions: New pantoprazole [Protonix] 40 mg tablet,delayed release (DR/EC) 40 mg PO DAILY Qty: 30 0RF sucralfate 1 gram tablet 1 g PO TID Qty: 60 0RF lorazepam [Ativan] 1 mg tablet 1 mg PO Q4-6H PRN (Reason: alcohol withdrawal) Qty: 14 0RF No Action lorazepam [Ativan] 1 mg tablet 2 mg PO TID PRN (Reason: anxiety) Qty: 10 0RF buprenorphine-naloxone [Suboxone] 8-2 mg Film 1 film BUCCAL DAILY 0RF
[2022-01-17] MEDS: Famotidine/PF 20 MG/2 ML VIAL IVPUSH (05:13)
[2022-01-17] MEDS: Folic Acid 1 MG TABLET PO (05:13)
[2022-01-17] MEDS: Magnesium Hydrox/Alum Hydrox 30 ML ORAL.SUSP PO (05:13)
[2022-01-17] MEDS: ondansetron HCL 4 MG/2 ML VIAL IVPUSH (05:13)
[2022-01-17] MEDS: LORazepam 2 MG/ML VIAL IVPUSH ×2 (05:13→09:45)
[2022-01-17 05:14] LABS: Eosinophils Percent Auto 0.2 % (0-4); Imm Gran Abs Auto 0.02 X10*3/uL (0.00-0.03); Imm Gran Pct Auto 0.4 % (0.0-0.4); Mean Corpuscular Volume 95.4 fL (80.0-98.0); PLT CLUMP 1; SCAN SMEAR FLAG 1
[2022-01-17] MEDS: Thiamine HCL 100 MG TABLET PO (05:14)
[2022-01-17] MEDS: 0.9 % Sodium Chloride 1,000 ML 999 ML IV (05:14)
[2022-01-17 05:16] LABS: Hematocrit 45.3 % (37.0-47.0); Hemoglobin 14.9 g/dl (12.0-16.0); Lymphocytes Absolute Auto 0.7 X10*3/uL (1.2-4.9); Lymphocytes Percent Auto 13.3 % (20-40); Mean Corpuscular HGB Conc 32.9 g/dl (31.0-35.0); Mean Corpuscular Hemoglobin 31.4 pg (27.0-33.0); Mean Platelet Volume 10.8 fL (9.4-12.3); Monocytes Absolute Auto 0.6 X10*3/uL (0.1-1.2); Monocytes Percent Auto 10.9 % (2-11); Neutrophils Absolute Auto 3.9 x10*3/uL (2.0-8.3); Neutrophils Percent Auto 75.2 % (45-73); Red Blood Count 4.75 X10*6/uL (4.20-5.50); Red Cell Distribution Width 13.9 % (11.0-16.0)
[2022-01-17 05:17] LABS: MANUAL DIFF FLAG SCAN
[2022-01-17 05:18] LABS: Platelet Count 96 X10*3/uL (160-400); White Blood Count 5.1 X10*3/uL (4.8-10.8)
[2022-01-17 05:19] LABS: SLIDE REVIEW VERIFIED
[2022-01-17 05:30] LABS: COVID-19 Test Negative (Negative)
[2022-01-17 05:31] LABS: Alanine Aminotransferase 117 U/L (0-31); Albumin Level 3.9 g/dL (3.5-5.0); Alkaline Phosphatase 129 U/L (39-117); Anion Gap 26 (12-20); Aspartate Amino Transferase 515 U/L (5-31); Bilirubin Total 12.7 mg/dL (0.0-1.0); Blood Urea Nitrogen 25 mg/dL (9-16); Calcium 10.8 mg/dL (8.4-10.2); Carbon Dioxide 24 mmol/L (22-29); Chloride 86 mmol/L (96-108); Creatinine Clr Calc Pharmacy 80.1; Estimated Glomerular Filt Rate > 60; Glucose Random 95 mg/dL (60-115); Magnesium 2.4 mg/dL (1.6-2.6); Sodium 132 mmol/L (135-145); Total Protein 7.8 g/dL (6.5-8.0)
[2022-01-17 05:48] LABS: Lipase 1193 U/L (8-78)
[2022-01-17] MEDS: iohexoL 350 MG/ML 100 ML INFUS..BTL IV (09:08)
[2022-01-17] MEDS: Morphine Sulfate 4 MG/ML CARTRIDGE 2 MG IVPUSH (09:45)
[2022-01-17] MEDS: 0.9 % Sodium Chloride 1,000 ML 999 ML IVCONT ×2 (09:46→12:07)
--- NOTE | 2022-01-17 10:36 | PHA.MEDREC ---
Pharmacy Consult ? Medication Reconciliation Pharmacy has completed the medication reconciliation. Patient reports taking an inappropriate dose of acramprosate; 2 tabs daily. Confirmed with the pharmacy that patient has not filled medication since 2020. Since it has been over a year and reports taking improperly. I am withholding from her home medication list. Leonora Regalado, VipulD
--- NOTE | 2022-01-17 11:28 | PC.NURSE ---
pt a difficult stick. multiple PCT's attempted blood draws, 2 RN attempt blood draws. awaiting cultures, lactic - call placed to phlebotomy
[2022-01-17 11:43] LABS: MANUAL DIFF FLAG NO
[2022-01-17 11:50] LABS: Basophils Percent Auto 0.2 % (0-2); Hematocrit 39.4 % (37.0-47.0); Hemoglobin 13.1 g/dl (12.0-16.0); Imm Gran Abs Auto 0.02 X10*3/uL (0.00-0.03); Imm Gran Pct Auto 0.4 % (0.0-0.4); Lymphocytes Absolute Auto 0.9 X10*3/uL (1.2-4.9); Lymphocytes Percent Auto 18.2 % (20-40); Mean Corpuscular HGB Conc 33.2 g/dl (31.0-35.0); Mean Corpuscular Hemoglobin 31.8 pg (27.0-33.0); Mean Corpuscular Volume 95.6 fL (80.0-98.0); Mean Platelet Volume 11.1 fL (9.4-12.3); Monocytes Absolute Auto 0.5 X10*3/uL (0.1-1.2); Monocytes Percent Auto 10.7 % (2-11); Neutrophils Absolute Auto 3.4 x10*3/uL (2.0-8.3); Neutrophils Percent Auto 70.5 % (45-73); Platelet Count 84 X10*3/uL (160-400); Red Blood Count 4.12 X10*6/uL (4.20-5.50); Red Cell Distribution Width 14.1 % (11.0-16.0); White Blood Count 4.8 X10*3/uL (4.8-10.8)
[2022-01-17 11:59] LABS: Lactic Acid 1.1 mmol/L (0.5-2.0)
[2022-01-17 12:00] LABS: Ethanol < 10 mg/dL
--- NOTE | 2022-01-17 12:00 | PC.NURSE ---
phlebotomy on floor to obtain blood as multiple techs and RNs attempted - abx started late due to neeed for cultures first
[2022-01-17 12:04] LABS: Acetaminophen LAB < 1 mcg/mL (<30)
[2022-01-17 12:05] LABS: Anion Gap 21 (12-20); Blood Urea Nitrogen 20 mg/dL (9-16); Calcium 9.7 mg/dL (8.4-10.2); Carbon Dioxide 24 mmol/L (22-29); Chloride 95 mmol/L (96-108); Creatinine Clr Calc Pharmacy 94.9; Estimated Glomerular Filt Rate > 60; Glucose Random 86 mg/dL (60-115); Potassium 3.5 mmol/L (3.3-5.1); Sodium 136 mmol/L (135-145)
[2022-01-17] MEDS: PHENobarbitaL sodium 130 MG/ML VIAL 219.7 MG IM (12:06)
[2022-01-17] MEDS: Piperacillin Sodium/Tazobactam 3.375 GM in 0.9 % Sodium Chloride 50 ML IV (12:07)
--- NOTE | 2022-01-17 12:30 | PC.NURSE ---
PT OFF UNIT IN MRI
[2022-01-17] MEDS: PHENobarbitaL sodium 130 MG/ML VIAL 165.1 MG IM ×2 (15:20→18:02)
[2022-01-17 15:32] LABS: Alanine Aminotransferase 106 U/L (0-31); Albumin Level 3.2 g/dL (3.5-5.0); Alkaline Phosphatase 112 U/L (39-117); Aspartate Amino Transferase 454 U/L (5-31); Bilirubin Direct 8.7 mg/dL (0.0-0.5); Bilirubin Total 11.3 mg/dL (0.0-1.0); Lipase 862 U/L (8-78); Total Protein 6.2 g/dL (6.5-8.0)
--- NOTE | 2022-01-17 15:38 | P.HPHOSP_ITS ---
History of Present Illness Date of Service: 01/17/22 Chief Complaint: abd pain 51F presented with left groin pain, nasuea, vomitting, abd pain. Patient is a poor historian. She drinks about 3 pt of vodka per day, has known cirrhosis, most recent total bilirubin was about 6 in October 2020. She reports 3 days of being unable to drink due to abdominal pain, nausea, vomiting. Pain is epigastric radiates diffusely, 10/10, no alleviating factors. She also states that she pulled something in her left groin, on further questioning she states that she may have fallen but does not remember exactly when. She has been able to ambulate but is having difficulty. She has also been feeling withdrawal symptoms of shakiness and restlessness. In ED patient noted to have significant elevation bilirubin to 12, withdrawal symptoms, CT imaging showed diffuse fatty infiltration of liver with small amount of biliary air present within the liver as well as focus of nondependent gas seen with distended gallbladder and small amount of pericholecystic fluid. Concern was for acute cholecystitis. Also noted to have mild splenomegaly, 9 mm CBD, and left inferior pubic ramus fracture. Surgery was consulted who felt this was unlikely to be acute cholecystitis. Review of Systems Review of Systems: Constitutional: Denies fever, denies Chills Eyes: denies blurry vision ENT: denies sore throat CVS: denies chest pain Respiratory: Denies dyspnea GI: abdominal pain : denies dysuria MSK: Left groin pain Skin: denies rash Neuro: denies specific motor weakness Psych: denies suicidal ideation Endocrine: denies heat/cold intolerance Hematologic: denies easy bleeding Allergy: denies hives Cardiovascular: Cardiovascular: Reports no additional cardiovascular c omplaints Respiratory: Respiratory: Reports no additional respiratory complaints [facility], [facility] Medical History delivery delivered Opioid abuse Family History (Updated 01/17/22 @ 15:43 by Arslan Murillo MD) Father No family history of coronary artery disease Mother No family history of coronary artery disease Social History Household Members: Children Housing: Apartment Do you presently have visiting nurse or other home services: No Alcohol intake: current Alcohol intake frequency: 3 or more drinks per day Patient Tobacco Use Status: Never used Tobacco Use of substances other than those prescribed or required for medical reasons: No Substance Use Type: Heroin Advance Directives: No Advance Directives Information Provided: No Patient : No service: No Current occupational status: employed Meds Allergies Allergy/AdvReac Type Severity Reaction Status Date / Time SEASONAL ALLERGIES Allergy Unknown SNEEZING, Uncoded 07/18/20 17:10 ITCHING Active Medications: Current Medications Medication (No Benzodiazepines) 1 each MISCELLANE DAILY [facility] Pharmacy Consult (Consult Rx Perform Med Rec) 1 each MISCELLANE ONCE PRN PRN Reason: Consult order Phenobarbital (Phenobarbital 15 Mg Tablet) 45 mg PO BID [facility]; Protocol Stop: 01/19/22 09:01 Phenobarbital (Phenobarbital 15 Mg Tablet) 15 mg PO BID [facility]; Protocol Stop: 01/21/22 09:01 Phenobarbital (Phenobarbital 15 Mg Tablet) 15 mg PO DAILY [facility]; Protocol Stop: 01/23/22 09:01 Phenobarbital Sodium (Phenobarbital Sodium 130 Mg/Ml Vial) 165.1 mg IM Q3H [facility]; Protocol Stop: 01/17/22 17:01 Last Admin: 01/17/22 15:20 Dose: 165.1 mg Documented by: Physical Exam Vital Signs and Narrative: Vital Signs: Last Vital Signs Temp 99.2 F 01/17/22 15:06 Pulse 112 H 01/17/22 15:19 Resp 18 01/17/22 15:19 BP 137/79 01/17/22 15:19 Pulse Ox 94 01/17/22 15:19 BMI result Body Mass Index 25.7 General: Jaundiced, ill-appearing HEENT: Jaundiced Neck: normal to visual inspection CVS: S1, S2, rapid Resp: CTA bilateral Chest: non tender GI: soft, tender, distended : no CVA tenderness Skin: no rashes Extremities: no edema Neuro: Oriented X3, tremulous, lethargic Psych: cooperative Results Labs CBC and Chem 7: 01/17/22 11:38 01/17/22 11:38 Labs: Laboratory Results - last 24 hr 01/17/22 01/17/22 01/17/22 05:08 05:08 05:08 MCV 95.4 MCH 31.4 MCHC 32.9 RDW 13.9 Plt Count 96 L MPV 10.8 Immature Gran % (Auto) 0.4 Neut % (Auto) 75.2 H Lymph % (Auto) 13.3 L [place] % (Auto) 10.9 Eos % (Auto) 0.2 Baso % (Auto) 0.0 Lymph # (Auto) 0.7 L [place] # (Auto) 0.6 Eos # (Auto) 0.0 Baso # (Auto) 0.0 Abs Immat Gran (auto) 0.02 Absolute Neuts (auto) 3.9 Absolute Nucleated RBC 0.000 Nucleated RBC % (auto) 0.0 Smear Tech's Comments VERIFIED Anion Gap 26 H Estim Creat Clear Calc 80.1 Estimated GFR > 60 Random Glucose 95 Lactic Acid Calcium 10.8 H D Magnesium 2.4 Total Bilirubin 12.7 H Direct Bilirubin AST 515 H ALT 117 H Alkaline Phosphatase 129 H Total Protein 7.8 Albumin 3.9 Lipase 1193 H Acetaminophen Ethyl Alcohol COVID-19 ([facility]) Negative COVID-19 Clin Com See Note Hepatitis A IgM Ab Hep Bs Antigen Hep Bs Antibody Hep B Core Total Ab Hepatitis C Ab (EIA) 01/17/22 01/17/22 01/17/22 05:12 11:38 11:38 MCV MCH MCHC RDW Plt Count MPV Immature Gran % (Auto) Neut % (Auto) Lymph % (Auto) [place] % (Auto) Eos % (Auto) Baso % (Auto) Lymph # (Auto) [place] # (Auto) Eos # (Auto) Baso # (Auto) Abs Immat Gran (auto) Absolute Neuts (auto) Absolute Nucleated RBC Nucleated RBC % (auto) Smear Tech's Comments Anion Gap 21 H Estim Creat Clear Calc 94.9 Estimated GFR > 60 Random Glucose 86 Lactic Acid Calcium 9.7 D Magnesium Total Bilirubin 11.3 H Direct Bilirubin 8.7 H AST 454 H ALT 106 H Alkaline Phosphatase 112 Total Protein 6.2 L D Albumin 3.2 L Lipase 862 H Acetaminophen < 1 Ethyl Alcohol COVID-19 ([facility]MARIO) COVID-19 Clin Com Hepatitis A IgM Ab Cancelled Hep Bs Antigen Cancelled Hep Bs Antibody Cancelled Hep B Core Total Ab Cancelled Hepatitis C Ab (EIA) Cancelled 01/17/22 01/17/22 01/17/22 11:38 11:38 11:38 MCV 95.6 MCH 31.8 MCHC 33.2 RDW 14.1 Plt Count 84 L MPV 11.1 Immature Gran % (Auto) 0.4 Neut % (Auto) 70.5 Lymph % (Auto) 18.2 L [place] % (Auto) 10.7 Eos % (Auto) 0.0 Baso % (Auto) 0.2 Lymph # (Auto) 0.9 L [place] # (Auto) 0.5 Eos # (Auto) 0.0 Baso # (Auto) 0.0 Abs Immat Gran (auto) 0.02 Absolute Neuts (auto) 3.4 Absolute Nucleated RBC 0.000 Nucleated RBC % (auto) 0.0 Smear Tech's Comments Anion Gap Estim Creat Clear Calc Estimated GFR Random Glucose Lactic Acid 1.1 Calcium Magnesium Total Bilirubin Direct Bilirubin AST ALT Alkaline Phosphatase Total Protein Albumin Lipase Acetaminophen Ethyl Alcohol < 10 COVID-19 ([facility]MARIO) COVID-19 Clin Com Hepatitis A IgM Ab Hep Bs Antigen Hep Bs Antibody Hep B Core Total Ab Hepatitis C Ab (EIA) Imaging Radiologist's Impressions: Impressions Abdomen/Pelvis CT 01/17/22 09:20 IMPRESSION: Diffuse fatty infiltration of the liver with small amount of biliary air present within the liver as well as a focus of nondependent gas seen within a distended gallbladder with small amount of pericholecystic fluid. Above findings are consistent with acute cholecystitis. Dilated common bile duct to 9 mm in diameter. Mild splenomegaly. Left inferior pubic ramus fracture. I do not see evidence of this being a healed fracture. Fleischner guidelines were followed. Cholangiopancreatography MRI 01/17/22 12:45 IMPRESSION: Marked diffuse hepatic steatosis. Suggestion of liver contour nodularity, recommend clinical correlation for possibility of underlying cirrhosis. Distended gallbladder with mild gallbladder wall edema. Small volume sludge versus stones in the gallbladder. No intrahepatic biliary ductal dilatation. Mild dilatation of the common bile duct. No filling defect is noted in the common bile duct. Assessment and Plan (1) Alcohol abuse: Status: Acute Plan 51-year-old female presented with abdominal pain, nausea, vomiting and left groin pain. Acute pancreatitis and acute hepatitis due to alcohol IV fluids npo gi eval monitor lfts, bmp alcohol dependence with withdrawal phenobarb ciwa alcohol cirrhosis with decompensation with acute metabolic encephalopathy lactulose, rifaximin gi eval left groin pain due to left pubic ramus fracture from fall WBAT, PT eval when withdrawal resolved dvt prophylaxis - mechanical due to thrombocytopenia full code patient seriously ill with acute liver failure, high risk for further decompensation, will need greater than 2 midnights in hospital Quality Stroke Does the patient have a stroke diagnosis?: No VTE Prior VTE?: No VTE Risk Level:: Medical - moderate - high VTE Device Contraindication: N/A - Device Ordered VTE Drug Contraindication: Treatment Not Tolerated
[2022-01-17 16:02] LABS: INTERNATIONAL NORM RATIO 2.9 (0.9-1.1); Prothrombin Time 33.9 SEC (9.9-13.0)
[2022-01-17] MEDS: Lactated Ringers 1,000 ML 100 ML IVCONT (16:05)
[2022-01-17] MEDS: Lactulose 20 GM/30 ML SOLUTION PO ×2 (18:01→21:20)
[2022-01-17] MEDS: Pantoprazole Sodium 40 MG/10 ML VIAL IVPUSH (18:04)
[2022-01-17] MEDS: rifAXIMin 550 MG TABLET PO (21:20)
[2022-01-17] MEDS: PHENobarbitaL 15 MG TABLET 45 MG PO (21:20)
[2022-01-18] VITALS: BP 144/82; PULSE 117; RESP 20; TEMP 37.8; O2SAT 94
[2022-01-18 04:00] VITALS: PULSE 103; RESP 18; TEMP 37.6
--- NOTE | 2022-01-18 05:00 | PC.NURSE ---
INCONT MOD AMT LOOSE STOOL X 2 AND OOB TO COMMODE WITH ASSIST.VOIDING PLUS LOOSE DARK BROWN STOOLS.ABD DISTENDED,SEMI FIRM.NO N/V.SKIN AND SCLERA REMAIN JAUNDICED.IV FLUIDS INFUSING.
[2022-01-18] MEDS: Pantoprazole Sodium 40 MG/10 ML VIAL IVPUSH ×2 (06:18→16:31)
[2022-01-18 07:20] LABS: Hematocrit 42.8 % (37.0-47.0); INTERNATIONAL NORM RATIO 2.5 (0.9-1.1); PLT CLUMP 1; Prothrombin Time 29.5 SEC (9.9-13.0)
[2022-01-18 07:22] LABS: Hemoglobin 14.2 g/dl (12.0-16.0); Mean Corpuscular HGB Conc 33.2 g/dl (31.0-35.0); Mean Corpuscular Hemoglobin 31.4 pg (27.0-33.0); Mean Corpuscular Volume 94.7 fL (80.0-98.0); Mean Platelet Volume 11.4 fL (9.4-12.3); Red Blood Count 4.52 X10*6/uL (4.20-5.50); Red Cell Distribution Width 14.5 % (11.0-16.0)
[2022-01-18 07:23] LABS: Platelet Count 81 X10*3/uL (160-400); White Blood Count 5.4 X10*3/uL (4.8-10.8)
--- NOTE | 2022-01-18 07:31 | P.CNGI_ITS ---
History of Present Illness Data of Consult Service Date: 01/18/22 Requesting physician: Arslan Murillo Primary Care Provider: Unknown Physician HPI Reason for consult: cirrhosis 51 yr old f with hx of alcohol abuse who I am seeing for abn LFT. Patient has had 3 d of epigastric pain with diffuse radiation 10/10 in severity without any relieving factors, worse with PO intake even liquids. She also noted nausea and vomiting. Also c/o groin pain after a fall with some difficulty in ambulation. Also noted increasing shakes and tremors which is better with alcohol withdrawal protocol. She conts to drink 3 pt of vodka daily. Labs; bilirubin 11, INR 2.5, AST 460, ALT 106, lipase 860, HGB stable. Maddrey score 89 CT imaging: diffuse fatty infiltration of liver with small amount of biliary air present within the liver as well as focus of nondependent gas seen with distended gallbladder and small amount of pericholecystic fluid.?? Also noted to have mild splenomegaly, 9 mm CBD, and left inferior pubic ramus fracture. MRI doen for concern for cholecystitis, sludge noted in GB, CBD was ok, pancreas was unremarkable Review of Systems Review of Systems: Constitutional: Denies fever, denies Chills Eyes: denies blurry vision ENT: denies sore throat CVS: denies chest pain Respiratory: Denies dyspnea GI: abdominal pain : denies dysuria MSK: Left groin pain Skin: denies rash Neuro: denies specific motor weakness Psych: denies suicidal ideation Endocrine: denies heat/cold intolerance Hematologic: denies easy bleeding Allergy: denies hives Respiratory: Respiratory: Reports no additional respiratory complaints [facility] Past Medical History Medical History delivery delivered Opioid abuse Family History Family History (Updated 01/17/22 @ 15:43 by Arsaln Murillo MD) Father No family history of coronary artery disease Mother No family history of coronary artery disease Social History Social History Household Members: Children Housing: Apartment Do you presently have visiting nurse or other home services: No Alcohol intake: current Alcohol intake frequency: 3 or more drinks per day Patient Tobacco Use Status: Never used Tobacco Use of substances other than those prescribed or required for medical reasons: No Substance Use Type: Heroin Advance Directives: No Advance Directives Information Provided: No Patient : No service: No Current occupational status: employed Meds Allergies Allergy/AdvReac Type Severity Reaction Status Date / Time SEASONAL ALLERGIES Allergy Unknown SNEEZING, Uncoded 07/18/20 17:10 ITCHING Active Medications: Current Medications Lactated Ringer's (Lr) 1,000 mls @ 100 mls/hr IVCONT .Q10H [facility] Last Admin: 01/18/22 06:11 Dose: Not Given Documented by: Phytonadione 5 mg/ Sodium (Chloride) 50.5 mls @ 50.5 mls/hr IV ONCE ONE Stop: 01/18/22 08:44 Lactulose (Lactulose 20 Gm/30 Ml Solution) 20 gm PO QID [facility] Last Admin: 01/17/22 21:20 Dose: 20 gm Documented by: Medication (No Benzodiazepines) 1 each MISCELLANE DAILY [facility] Pantoprazole Sodium (Pantoprazole Sodium 40 Mg/10 Ml Vial) 40 mg IVPUSH BID@0630,1630 [facility] Last Admin: 01/18/22 06:18 Dose: 40 mg Documented by: Pharmacy Consult (Consult Rx Perform Med Rec) 1 each MISCELLANE ONCE PRN PRN Reason: Consult order Phenobarbital (Phenobarbital 15 Mg Tablet) 45 mg PO BID [facility]; Protocol Stop: 01/19/22 09:01 Last Admin: 01/17/22 21:20 Dose: 45 mg Documented by: Phenobarbital (Phenobarbital 15 Mg Tablet) 15 mg PO BID [facility]; Protocol Stop: 01/21/22 09:01 Phenobarbital (Phenobarbital 15 Mg Tablet) 15 mg PO DAILY [facility]; Protocol Stop: 01/23/22 09:01 Rifaximin (Rifaximin 550 Mg Tablet) 550 mg PO BID [facility] Last Admin: 01/17/22 21:20 Dose: 550 mg Documented by: Sodium Chloride (0.9 % Sodium Chloride Flush 3 Ml Syringe) 3 ml IVFLUSH QSHIFT [facility] Last Admin: 01/18/22 00:43 Dose: Not Given Documented by: Physical Exam Vital Signs: Vital Signs: Last Vital Signs Temp 99.7 F 01/18/22 04:00 Pulse 103 H 01/18/22 04:00 Resp 18 01/18/22 04:00 BP 144/82 H 01/18/22 00:00 Pulse Ox 94 01/18/22 00:00 BMI result Body Mass Index 25.7 EXAM: GENERAL: The patient is relaxed, jaundiced VITAL SIGNS:see workflow HEENT: icteric sclerae, PERRLA, EOMI. Oropharynx clear. Moist mucous membranes. Conjunctivae appear well perfused. No thyroid mass. CHEST: Chest wall is nontender. HEART: Regular rate and rhythm without murmurs. LUNGS: Clear to auscultation bilaterally. ABDOMEN: Soft, positive bowel sounds, tender ruq and epigastrium, no organomegaly.no flank tenderness SKIN: No rash, no excessive bruising, petechiae, or purpura. NEUROLOGIC: Cranial nerves II-XII intact without motor/sensory deficit. Mild flap tremor psych- nml affect MS; no weakness, Results Labs CBC & Chem 7: 01/18/22 07:02 01/18/22 07:02 Labs: Short CBC 01/17/22 01/18/22 Range/Units 11:38 07:02 WBC 4.8 5.4 (4.8-10.8) X10*3/uL Hgb 13.1 14.2 (12.0-16.0) g/dl Hct 39.4 42.8 (37.0-47.0) % Plt Count 84 L 81 L (160-400) X10*3/uL BMP 01/17/22 11:38 Sodium 136 Potassium 3.5 Chloride 95 L Carbon Dioxide 24 BUN 20 H Creatinine 0.65 Calcium 9.7 D Liver Function 01/17/22 Range/Units 11:38 Total Bilirubin 11.3 H (0.0-1.0) mg/dL Direct Bilirubin 8.7 H (0.0-0.5) mg/dL AST 454 H (5-31) U/L ALT 106 H (0-31) U/L Alkaline Phosphatase 112 (39-117) U/L Albumin 3.2 L (3.5-5.0) g/dL Imaging MRI - abdomen: Attestation: I personally reviewed and interpreted this imaging study as follows: My impression: hepatomegaly, nml cbd and pancreas Assessment and Plan (1) Cirrhosis: Status: Acute (2) Acute hepatitis: Status: Acute (3) Alcohol abuse: Status: Acute Plan 1/ Acute on chronic liver failure with alcoholic hepatitis, Maddrey score 89 with poor prognosis 2/ Lipase elevation maybe related to 1/ above rather than pancreatitis PLAN: 1/ Prednisone 40 mg for 7 d then Lille score , no evidence of sepsis at this time 2/ High protein diet as tolerated, 1.1 g/kg/day 3/ alcohol withdrawal protocol 4/ zinc supplementation 220 mg daily and multivitamin 5/ Vit K 10 mg for 3 days 6/ Viral hep serologies pending, can add ANSHU< SMA, ANCA< Anti LKM, Ig, ceruloplasmin, A1AT, ferritin, iron sat. Procedures Date of Service Date of Service: 01/18/22
[2022-01-18 07:41] LABS: Alanine Aminotransferase 95 U/L (0-31); Albumin Level 3.3 g/dL (3.5-5.0); Alkaline Phosphatase 119 U/L (39-117); Anion Gap 16 (12-20); Aspartate Amino Transferase 340 U/L (5-31); Bilirubin Direct 9.8 mg/dL (0.0-0.5); Bilirubin Total 12.2 mg/dL (0.0-1.0); Blood Urea Nitrogen 12 mg/dL (9-16); Calcium 9.5 mg/dL (8.4-10.2); Carbon Dioxide 30 mmol/L (22-29); Chloride 94 mmol/L (96-108); Creatinine Clr Calc Pharmacy 94.9; Estimated Glomerular Filt Rate > 60; Glucose Fasting 105 mg/dL (60-99); Magnesium 2.2 mg/dL (1.6-2.6); Potassium 2.8 mmol/L (3.3-5.1); Sodium 137 mmol/L (135-145); Total Protein 6.4 g/dL (6.5-8.0)
--- NOTE | 2022-01-18 08:17 | PC.NURSE ---
Pt ripped out IV and demanding to leave AMA. Dr. Murillo made aware and came to bedside to talk with pt. pt now okay to stay. New IV needs to be placed this RN tried multiple times. another RN called to place line.
--- NOTE | 2022-01-18 08:51 | HO.PM.IMPN ---
Subjective Subjective Date of Service: 01/18/22 Interval History: cc: left groin pain, brbpr interval history: wanted to leave, but still with abd pain, confusion Cardiovascular Cardiovascular: Reports no additional cardiovascular complaints Respiratory Respiratory: Reports no additional respiratory complaints Physical Exam Vital Signs: Vital Signs: Last Vital Signs Temp 99.7 F 01/18/22 04:00 Pulse 103 H 01/18/22 04:00 Resp 18 01/18/22 04:00 BP 144/82 H 01/18/22 00:00 Pulse Ox 94 01/18/22 00:00 BMI result Body Mass Index 25.7 General: lethargic O X 3, juandiced, ill appearing Resp: CTA bilateral, no accessory muscles used CVS: S1,S2,RRR GI: soft, epigastric tender, distended Neuro: motor grossly intact, lethargic Psych: appropriate affect, questionable insight Objective Data Active Medications Lactated Ringer's (Lr) 1,000 mls @ 100 mls/hr IVCONT .Q10H [facility] Last Admin: 01/18/22 06:11 Dose: Not Given Documented by: CAMRYN Non-Admin Reason: IV Running Lactulose (Lactulose 20 Gm/30 Ml Solution) 20 gm PO QID [facility] Last Admin: 01/17/22 21:20 Dose: 20 gm Documented by: SUSAN Medication (No Benzodiazepines) 1 each MISCELLANE DAILY [facility] Pantoprazole Sodium (Pantoprazole Sodium 40 Mg/10 Ml Vial) 40 mg IVPUSH BID@0630,1630 [facility] Last Admin: 01/18/22 06:18 Dose: 40 mg Documented by: CAMRYN Pharmacy Consult (Consult Rx Perform Med Rec) 1 each MISCELLANE ONCE PRN PRN Reason: Consult order Phenobarbital (Phenobarbital 15 Mg Tablet) 45 mg PO BID [facility]; Protocol Stop: 01/19/22 09:01 Last Admin: 01/17/22 21:20 Dose: 45 mg Documented by: SUSAN Phenobarbital (Phenobarbital 15 Mg Tablet) 15 mg PO BID [facility]; Protocol Stop: 01/21/22 09:01 Phenobarbital (Phenobarbital 15 Mg Tablet) 15 mg PO DAILY [facility]; Protocol Stop: 01/23/22 09:01 Potassium Chloride (Potassium Chloride Er 20 Meq Tab.Er.Prt) 40 meq PO ONCE ONE Stop: 01/18/22 08:51 Rifaximin (Rifaximin 550 Mg Tablet) 550 mg PO BID [facility] Last Admin: 01/17/22 21:20 Dose: 550 mg Documented by: SUSAN Sodium Chloride (0.9 % Sodium Chloride Flush 3 Ml Syringe) 3 ml IVFLUSH QSHIFT [facility] Last Admin: 01/18/22 00:43 Dose: Not Given Documented by: CAMRYN Non-Admin Reason: No Access Labs CBC & Chem 7: 01/18/22 07:02 01/18/22 07:02 Labs: Laboratory Results - last 24 hr 01/17/22 01/17/22 01/17/22 05:12 11:38 11:38 MCV MCH MCHC RDW Plt Count MPV Immature Gran % (Auto) Neut % (Auto) Lymph % (Auto) [place] % (Auto) Eos % (Auto) Baso % (Auto) Lymph # (Auto) [place] # (Auto) Eos # (Auto) Baso # (Auto) Abs Immat Gran (auto) Absolute Neuts (auto) Absolute Nucleated RBC Nucleated RBC % (auto) PT INR Anion Gap 21 H Estim Creat Clear Calc 94.9 Estimated GFR > 60 Random Glucose 86 Fasting Glucose Lactic Acid Calcium 9.7 D Magnesium Total Bilirubin 11.3 H Direct Bilirubin 8.7 H AST 454 H ALT 106 H Alkaline Phosphatase 112 Total Protein 6.2 L D Albumin 3.2 L Lipase 862 H Acetaminophen < 1 Ethyl Alcohol Hepatitis A IgM Ab Cancelled Hep Bs Antigen Cancelled Hep Bs Antibody Cancelled Hep B Core Total Ab Cancelled Hepatitis C Ab (EIA) Cancelled 01/17/22 01/17/22 01/17/22 11:38 11:38 11:38 MCV 95.6 MCH 31.8 MCHC 33.2 RDW 14.1 Plt Count 84 L MPV 11.1 Immature Gran % (Auto) 0.4 Neut % (Auto) 70.5 Lymph % (Auto) 18.2 L [place] % (Auto) 10.7 Eos % (Auto) 0.0 Baso % (Auto) 0.2 Lymph # (Auto) 0.9 L [place] # (Auto) 0.5 Eos # (Auto) 0.0 Baso # (Auto) 0.0 Abs Immat Gran (auto) 0.02 Absolute Neuts (auto) 3.4 Absolute Nucleated RBC 0.000 Nucleated RBC % (auto) 0.0 PT INR Anion Gap Estim Creat Clear Calc Estimated GFR Random Glucose Fasting Glucose Lactic Acid 1.1 Calcium Magnesium Total Bilirubin Direct Bilirubin AST ALT Alkaline Phosphatase Total Protein Albumin Lipase Acetaminophen Ethyl Alcohol < 10 Hepatitis A IgM Ab Hep Bs Antigen Hep Bs Antibody Hep B Core Total Ab Hepatitis C Ab (EIA) 01/17/22 01/18/22 01/18/22 15:51 07:02 07:02 MCV 94.7 MCH 31.4 MCHC 33.2 RDW 14.5 Plt Count 81 L MPV 11.4 Immature Gran % (Auto) Neut % (Auto) Lymph % (Auto) [place] % (Auto) Eos % (Auto) Baso % (Auto) Lymph # (Auto) [place] # (Auto) Eos # (Auto) Baso # (Auto) Abs Immat Gran (auto) Absolute Neuts (auto) Absolute Nucleated RBC 0.000 Nucleated RBC % (auto) 0.0 PT 33.9 H 29.5 H INR 2.9 H 2.5 H Anion Gap Estim Creat Clear Calc Estimated GFR Random Glucose Fasting Glucose Lactic Acid Calcium Magnesium Total Bilirubin Direct Bilirubin AST ALT Alkaline Phosphatase Total Protein Albumin Lipase Acetaminophen Ethyl Alcohol Hepatitis A IgM Ab Hep Bs Antigen Hep Bs Antibody Hep B Core Total Ab Hepatitis C Ab (EIA) 01/18/22 07:02 MCV MCH MCHC RDW Plt Count MPV Immature Gran % (Auto) Neut % (Auto) Lymph % (Auto) [place] % (Auto) Eos % (Auto) Baso % (Auto) Lymph # (Auto) [place] # (Auto) Eos # (Auto) Baso # (Auto) Abs Immat Gran (auto) Absolute Neuts (auto) Absolute Nucleated RBC Nucleated RBC % (auto) PT INR Anion Gap 16 Estim Creat Clear Calc 94.9 Estimated GFR > 60 Random Glucose Fasting Glucose 105 H Lactic Acid Calcium 9.5 Magnesium 2.2 Total Bilirubin 12.2 H Direct Bilirubin 9.8 H AST 340 H ALT 95 H Alkaline Phosphatase 119 H Total Protein 6.4 L Albumin 3.3 L Lipase Acetaminophen Ethyl Alcohol Hepatitis A IgM Ab Hep Bs Antigen Hep Bs Antibody Hep B Core Total Ab Hepatitis C Ab (EIA) Assessment and Plan (1) Acute pancreatitis: Status: Acute Plan 51-year-old female presented with abdominal pain, nausea, vomiting and left groin pain. Acute pancreatitis and acute hepatitis due to alcohol advance to clears continue ivf gi eval monitor lfts, bmp, inr alcohol dependence with withdrawal phenobarb ciwa alcohol cirrhosis with decompensation with acute metabolic encephalopathy still fairly encephalopathic, pulled out IV line, wanted to leave, AMA, convinced to stay cotinue lactulose - goal 2-3 bm/day, rifaximin gi eval vitk for any vitk defeciency component to elevated inr left groin pain due to left pubic ramus fracture from fall WBAT, PT eval when withdrawal resolved dvt prophylaxis - mechanical due to thrombocytopenia/coagulopathy full code reason for continued hospitalization: patient continues to be seriously ill with acute liver failure, bilirubin rising, high risk for further decompensation Quality Stroke Does the patient have a stroke diagnosis?: No VTE Prior VTE?: No VTE Risk Level:: Medical - moderate - high VTE Device Contraindication: N/A - Device Ordered VTE Drug Contraindication: Treatment Not Tolerated
[2022-01-18] MEDS: Potassium Chloride ER 20 MEQ TAB.ER.PRT 40 MEQ PO (10:08)
[2022-01-18] MEDS: Lactulose 20 GM/30 ML SOLUTION PO ×2 (10:08→19:58)
[2022-01-18] MEDS: PHENobarbitaL 15 MG TABLET 45 MG PO ×2 (10:08→19:59)
[2022-01-18] MEDS: rifAXIMin 550 MG TABLET PO ×2 (10:08→19:58)
[2022-01-18] MEDS: Phytonadione (Vit K1) 5 MG in 0.9 % Sodium Chloride 50 ML 50.5 MG IV (10:34)
--- NOTE | 2022-01-18 10:56 | MHC.CM.PN ---
met with pt who explains that she lives alone her dgter visits on weekends ..pt is vax x 2 she is not invol;arianna with any support substance abuse servceis pt will be ssen by care team
[2022-01-18] MEDS: predniSONE 20 MG TABLET 40 MG PO (11:50)
[2022-01-18] MEDS: Lactated Ringers 1,000 ML 100 ML IVCONT (11:51)
--- NOTE | 2022-01-18 15:37 | PC.NURSE ---
Pt with multiple attempts to leave AMA. pt now more directable. Bed alarm and camera sitter in place. Incontinence care performed. Pt incontinent of stool. Refused afternoon lactulose. linens changed and new hospital gown in place. ESD called to mop the floors. Pt now resting in bed, pt ate 50% of lunch. No complaints at this time CIWA 2. Callbell and belongings within reach.
--- NOTE | 2022-01-18 16:15 | PM.CNGS ---
History of Present Illness Consult details Consult date: 01/17/22 Reason for consult: abdominal pain Requesting physician: Fátima Booker Narrative: 51 year old female alcoholic came in for detox but then blood work showing elevated lfts and lipase and ct scan ? biliary pathology. pt a known severe alcoholic with high consumption of pints of vodka daily. Her labs have worsened significantly and she is in hepatic insuffic/failure with bili so high. now with elevated lipase -? she has a cbd stone vs just increasing hepatic worsening. mrcp done not showing obstructing stone Review of Systems Review of Systems: Yes Unobtainable due to mental status PMFSH Past Medical History Medical History delivery delivered Opioid abuse Family History Family History Father No family history of coronary artery disease Mother No family history of coronary artery disease Social History Social History Household Members: Children Housing: Apartment Do you presently have visiting nurse or other home services: No Alcohol intake: current Alcohol intake frequency: 3 or more drinks per day Patient Tobacco Use Status: Never used Tobacco Use of substances other than those prescribed or required for medical reasons: No Substance Use Type: Heroin Advance Directives: No Advance Directives Information Provided: No Patient : No service: No Current occupational status: employed Meds Allergies Allergy/AdvReac Type Severity Reaction Status Date / Time SEASONAL ALLERGIES Allergy Unknown SNEEZING, Uncoded 07/18/20 17:10 ITCHING Active Medications: Current Medications Lactated Ringer's (Lr) 1,000 mls @ 100 mls/hr IVCONT .Q10H [facility] Last Admin: 01/18/22 11:51 Dose: 100 mls/hr Documented by: Lactulose (Lactulose 20 Gm/30 Ml Solution) 20 gm PO QID [facility] Last Admin: 01/18/22 14:16 Dose: Not Given Documented by: Medication (No Benzodiazepines) 1 each MISCELLANE DAILY [facility] Pantoprazole Sodium (Pantoprazole Sodium 40 Mg/10 Ml Vial) 40 mg IVPUSH BID@0630,1630 [facility] Last Admin: 01/18/22 06:18 Dose: 40 mg Documented by: Pharmacy Consult (Consult Rx Perform Med Rec) 1 each MISCELLANE ONCE PRN PRN Reason: Consult order Phenobarbital (Phenobarbital 15 Mg Tablet) 45 mg PO BID [facility]; Protocol Stop: 01/19/22 09:01 Last Admin: 01/18/22 10:08 Dose: 45 mg Documented by: Phenobarbital (Phenobarbital 15 Mg Tablet) 15 mg PO BID [facility]; Protocol Stop: 01/21/22 09:01 Phenobarbital (Phenobarbital 15 Mg Tablet) 15 mg PO DAILY [facility]; Protocol Stop: 01/23/22 09:01 Prednisone (Prednisone 20 Mg Tablet) 40 mg PO DAILY [facility] Last Admin: 01/18/22 11:50 Dose: 40 mg Documented by: Rifaximin (Rifaximin 550 Mg Tablet) 550 mg PO BID [facility] Last Admin: 01/18/22 10:08 Dose: 550 mg Documented by: Sodium Chloride (0.9 % Sodium Chloride Flush 3 Ml Syringe) 3 ml IVFLUSH QSHIFT [facility] Last Admin: 01/18/22 15:34 Dose: Not Given Documented by: Physical Exam Vital Signs: Vital Signs: Last Vital Signs Temp 99.7 F 01/18/22 04:00 Pulse 103 H 01/18/22 04:00 Resp 18 01/18/22 04:00 BP 144/82 H 01/18/22 00:00 Pulse Ox 94 01/18/22 00:00 BMI result Body Mass Index 25.7 Eyes: Other: jaundiced GI: Other: abdo soft, distended, not spcifically tender maybe upper abdo more than lower pt confused and not making sense during exam Results Labs Result diagrams: 01/18/22 07:02 01/18/22 07:02 Labs: Abnormal lab results 01/18/22 01/18/22 01/18/22 Range/Units 07:02 07:02 07:02 Plt Count 81 L (160-400) X10*3/uL PT 29.5 H (9.9-13.0) SEC INR 2.5 H (0.9-1.1) Potassium 2.8 L (3.3-5.1) mmol/L Chloride 94 L (96-108) mmol/L Carbon Dioxide 30 H (22-29) mmol/L Fasting Glucose 105 H (60-99) mg/dL Total Bilirubin 12.2 H (0.0-1.0) mg/dL Direct Bilirubin 9.8 H (0.0-0.5) mg/dL AST 340 H (5-31) U/L ALT 95 H (0-31) U/L Alkaline Phosphatase 119 H (39-117) U/L Total Protein 6.4 L (6.5-8.0) g/dL Albumin 3.3 L (3.5-5.0) g/dL Short CBC 01/18/22 Range/Units 07:02 WBC 5.4 (4.8-10.8) X10*3/uL Hgb 14.2 (12.0-16.0) g/dl Hct 42.8 (37.0-47.0) % Plt Count 81 L (160-400) X10*3/uL BMP 01/18/22 07:02 Sodium 137 Potassium 2.8 L Chloride 94 L Carbon Dioxide 30 H BUN 12 Creatinine 0.65 Calcium 9.5 Liver Function 01/18/22 Range/Units 07:02 Total Bilirubin 12.2 H (0.0-1.0) mg/dL Direct Bilirubin 9.8 H (0.0-0.5) mg/dL AST 340 H (5-31) U/L ALT 95 H (0-31) U/L Alkaline Phosphatase 119 H (39-117) U/L Albumin 3.3 L (3.5-5.0) g/dL All other labs normal. Imaging Abdomen CT scan report/results: report reviewed and image reviewed CT scan - pelvis: report reviewed and image reviewed Assessment and Plan (1) Acute pancreatitis: Status: Acute Plan 51 year old female with pancreatitis and hepatic insuff due to cirrhosis and alcohol being her cause. no evidence of cholecystitis or cbd stone so just due to alcohol agree with med admit , GI consult pt has serious hepatic compromise and is high risk for dying if doesnt stop drinking now. withdrawal protocol as pt is inhouse no need for any surgical intervention and she is high risk for any procedure at this time Procedures Date of Service Date of Service: 01/17/22
[2022-01-18 16:36] VITALS: BP 116/79; PULSE 95; RESP 92; TEMP 37.3; O2SAT 94
--- NOTE | 2022-01-18 16:46 | PC.NURSE ---
pt refusing PM lactulose. RN educated pt on the importance of lactulose and pt continued to refuse med.
[2022-01-18 20:00] VITALS: BP 135/77; PULSE 95; RESP 22; O2SAT 95
[2022-01-18 23:38] VITALS: BP 114/74; PULSE 91; RESP 20; O2SAT 95
[2022-01-19] MEDS: Lactated Ringers 1,000 ML 100 ML IVCONT (04:32)
[2022-01-19 04:35] VITALS: BP 114/81; PULSE 91; RESP 20; O2SAT 97
[2022-01-19] MEDS: Pantoprazole Sodium 40 MG/10 ML VIAL IVPUSH (06:21)
--- NOTE | 2022-01-19 07:16 | PC.NURSE ---
Care assumed for pt at this time. Pt incontinent of stool, cleaned, new linens provided, buttocks reddened, barrier cream applied.
[2022-01-19 08:05] LABS: HBc Num1 0.15 S/CO (0.00-0.79); Hepatitis B Core Antibody Nonreactive (Nonreactive); ~HepC Num1 0.13 S/CO (0.00-0.79); ~Hepatitis B Surface Antibody NONREACTIVE (Nonreactive); ~Hepatitis C Antibody Nonreactive (Nonreactive)
[2022-01-19 08:11] LABS: HBsAGNum1 0.19 S/CO (0.00-0.99); Hepatitis B Surface Antigen Negative (Negative)
[2022-01-19] MEDS: rifAXIMin 550 MG TABLET PO ×2 (08:50→20:03)
[2022-01-19] MEDS: predniSONE 20 MG TABLET 40 MG PO (08:50)
[2022-01-19] MEDS: PHENobarbitaL 15 MG TABLET 45 MG PO (08:50)
[2022-01-19 10:09] LABS: Hematocrit 36.6 % (37.0-47.0); Hemoglobin 12.3 g/dl (12.0-16.0); Mean Corpuscular HGB Conc 33.6 g/dl (31.0-35.0); Mean Corpuscular Hemoglobin 31.5 pg (27.0-33.0); Mean Corpuscular Volume 93.6 fL (80.0-98.0); Mean Platelet Volume 11.4 fL (9.4-12.3); Red Blood Count 3.91 X10*6/uL (4.20-5.50); Red Cell Distribution Width 14.3 % (11.0-16.0); White Blood Count 6.2 X10*3/uL (4.8-10.8)
[2022-01-19 10:10] LABS: Platelet Count 91 X10*3/uL (160-400)
[2022-01-19 10:23] LABS: INTERNATIONAL NORM RATIO 1.8 (0.9-1.1); Prothrombin Time 20.3 SEC (9.9-13.0)
[2022-01-19 10:29] LABS: Alanine Aminotransferase 75 U/L (0-31); Albumin Level 3.1 g/dL (3.5-5.0); Alkaline Phosphatase 121 U/L (39-117); Anion Gap 12 (12-20); Aspartate Amino Transferase 204 U/L (5-31); Bilirubin Direct 10.2 mg/dL (0.0-0.5); Bilirubin Total 13.2 mg/dL (0.0-1.0); Blood Urea Nitrogen 6 mg/dL (9-16); Calcium 9.5 mg/dL (8.4-10.2); Carbon Dioxide 32 mmol/L (22-29); Chloride 91 mmol/L (96-108); Creatinine Clr Calc Pharmacy 102.8; Estimated Glomerular Filt Rate > 60; Glucose Fasting 134 mg/dL (60-99); Potassium 2.6 mmol/L (3.3-5.1); Sodium 132 mmol/L (135-145)
--- NOTE | 2022-01-19 12:26 | P.PNIM_ITS ---
Subjective Subjective Date of Service: 01/19/22 Interval History: cc: groinpain, lethargy interval history: hungry Cardiovascular Cardiovascular: Reports no additional cardiovascular complaints Respiratory Respiratory: Reports no additional respiratory complaints Physical Exam Vital Signs: Vital Signs: Last Vital Signs Temp 99.1 F 01/18/22 16:36 Pulse 91 01/19/22 04:35 Resp 20 01/19/22 04:35 BP 114/81 01/19/22 04:35 Pulse Ox 97 01/19/22 04:35 BMI result Body Mass Index 25.7 General: lethargic O X 3, juandiced, ill appearing Resp:? CTA bilateral, no accessory muscles used CVS: S1,S2,RRR GI: soft, epigastric tender, distended Neuro:? motor grossly intact, lethargic Psych: appropriate affect, questionable insight? Objective Data Active Medications Lactated Ringer's (Lr) 1,000 mls @ 100 mls/hr IVCONT .Q10H [facility] Last Admin: 01/19/22 04:32 Dose: 100 mls/hr Documented by: ROSARIO Lactulose (Lactulose 20 Gm/30 Ml Solution) 20 gm PO QID [facility] Last Admin: 01/19/22 08:46 Dose: Not Given Documented by: ALEC Non-Admin Reason: See Note Medication (No Benzodiazepines) 1 each MISCELLANE DAILY [facility] Pantoprazole Sodium (Pantoprazole Sodium 40 Mg/10 Ml Vial) 40 mg IVPUSH BID@0630,1630 [facility] Last Admin: 01/19/22 06:21 Dose: 40 mg Documented by: ROSARIO Pharmacy Consult (Consult Rx Perform Med Rec) 1 each MISCELLANE ONCE PRN PRN Reason: Consult order Phenobarbital (Phenobarbital 15 Mg Tablet) 15 mg PO BID [facility]; Protocol Stop: 01/21/22 09:01 Phenobarbital (Phenobarbital 15 Mg Tablet) 15 mg PO DAILY [facility]; Protocol Stop: 01/23/22 09:01 Potassium Chloride (Potassium Chloride Er 20 Meq Tab.Er.Prt) 40 meq PO ONCE ONE Stop: 01/19/22 12:26 Prednisone (Prednisone 20 Mg Tablet) 40 mg PO DAILY [facility] Last Admin: 01/19/22 08:50 Dose: 40 mg Documented by: ALEC Rifaximin (Rifaximin 550 Mg Tablet) 550 mg PO BID [facility] Last Admin: 01/19/22 08:50 Dose: 550 mg Documented by: ALEC Sodium Chloride (0.9 % Sodium Chloride Flush 3 Ml Syringe) 3 ml IVFLUSH QSHIFT [facility] Last Admin: 01/19/22 08:46 Dose: Not Given Documented by: ALEC Non-Admin Reason: IV Running Labs CBC & Chem 7: 01/19/22 10:01 01/19/22 10:01 Labs: Laboratory Results - last 24 hr 01/17/22 01/19/22 01/19/22 11:42 10:01 10:01 MCV 93.6 MCH 31.5 MCHC 33.6 RDW 14.3 Plt Count 91 L MPV 11.4 Absolute Nucleated RBC 0.000 Nucleated RBC % (auto) 0.0 PT 20.3 H INR 1.8 H Anion Gap Estim Creat Clear Calc Estimated GFR Fasting Glucose Calcium Total Bilirubin Direct Bilirubin AST ALT Alkaline Phosphatase Total Protein Albumin Hep Bs Antigen Negative Hep Bs Antibody NONREACTIVE Hep B Core Total Ab Nonreactive Hepatitis C Ab (EIA) Nonreactive 01/19/22 10:01 MCV MCH MCHC RDW Plt Count MPV Absolute Nucleated RBC Nucleated RBC % (auto) PT INR Anion Gap 12 Estim Creat Clear Calc 102.8 Estimated GFR > 60 Fasting Glucose 134 H Calcium 9.5 Total Bilirubin 13.2 H Direct Bilirubin 10.2 H AST 204 H ALT 75 H Alkaline Phosphatase 121 H Total Protein 6.0 L Albumin 3.1 L Hep Bs Antigen Hep Bs Antibody Hep B Core Total Ab Hepatitis C Ab (EIA) Microbiology Microbiology Results: Microbiology 01/17/22 12:00 Blood Culture - Preliminary Blood - Venous No growth after 24 hours. 01/17/22 11:37 Blood Culture - Preliminary Blood - Venous No growth after 24 hours. Assessment and Plan (1) Acute pancreatitis: Status: Acute Plan 51-year-old female presented with abdominal pain, nausea, vomiting and left groin pain. Acute pancreatitis and acute hepatitis due to alcohol advance to solids continue ivf gi following monitor lfts, bmp, inr alcohol dependence with withdrawal phenobarb ciwa alcohol cirrhosis with decompensation with acute metabolic encephalopathy encephalopathy a bit better today cotinue lactulose - goal 2-3 bm/day, rifaximin gi eval left groin pain due to left pubic ramus fracture from fall WBAT, PT eval when withdrawal resolved dvt prophylaxis - mechanical due to thrombocytopenia/coagulopathy full code reason for continued hospitalization: patient continues to be seriously ill with acute liver failure, bilirubin rising, high risk for further decompensation Quality Stroke Does the patient have a stroke diagnosis?: No VTE Prior VTE?: No VTE Risk Level:: Medical - moderate - high VTE Device Contraindication: N/A - Device Ordered VTE Drug Contraindication: Treatment Not Tolerated
[2022-01-19] MEDS: Potassium Chloride ER 20 MEQ TAB.ER.PRT 40 MEQ PO ×2 (14:22→22:19)
[2022-01-19] MEDS: 0.9 % Sodium Chloride Flush 3 ML SYRINGE IVFLUSH (20:02)
[2022-01-19] MEDS: PHENobarbitaL 15 MG TABLET PO (20:06)
[2022-01-19] MEDS: Acetaminophen 325 MG TABLET 650 MG PO (22:15)
[2022-01-19 23:30] VITALS: BP 116/76; PULSE 93; RESP 19; O2SAT 96
[2022-01-20] MEDS: Lactated Ringers 1,000 ML 100 ML IVCONT (00:22)
--- NOTE | 2022-01-20 00:23 | PC.NURSE ---
ALERT, IMPULSIVE, JUMPS OOB W/O CALLING. INCONTINENT OF STOOL AND URINE AT TIMES, LOOSE LIQUID STOOL, ON LACTULOSE, REFUSED NUMEROUS LACTULOSE DOSES TODAY. PAIN TO LUQ AND LEFT GROIN CONTINUES, MD NOTIFED, TYLENOL ORDERED. PATIENT WITH ACID INDIGESTION, MD NOTIFIED, OMEPRAZOLE ORDERED.
[2022-01-20 04:13] VITALS: BP 116/76; PULSE 92; RESP 18; TEMP 36.6; O2SAT 92
[2022-01-20] MEDS: Omeprazole 40 MG CAPSULE.DR PO (06:42)
--- NOTE | 2022-01-20 06:51 | PC.NURSE ---
CARE ASSUMED 23:15..ALERT..ORIENTED X3..CALM COPERATIVE..RESPIRATIONS EASY..OOB TO BEDSIDE COMMODE..VOIDED WITH LOOSE STOOLS...RESTFUL OVERNIGHT
[2022-01-20] MEDS: rifAXIMin 550 MG TABLET PO (08:54)
[2022-01-20] MEDS: predniSONE 20 MG TABLET 40 MG PO (08:54)
[2022-01-20] MEDS: PHENobarbitaL 15 MG TABLET PO (08:54)
[2022-01-20 09:11] LABS: Hematocrit 37.2 % (37.0-47.0); Hemoglobin 12.3 g/dl (12.0-16.0); Mean Corpuscular HGB Conc 33.1 g/dl (31.0-35.0); Mean Corpuscular Hemoglobin 32.1 pg (27.0-33.0); Mean Corpuscular Volume 97.1 fL (80.0-98.0); Mean Platelet Volume 10.7 fL (9.4-12.3); Platelet Count 105 X10*3/uL (160-400); Red Blood Count 3.83 X10*6/uL (4.20-5.50); Red Cell Distribution Width 15.1 % (11.0-16.0); White Blood Count 7.2 X10*3/uL (4.8-10.8)
[2022-01-20 09:33] LABS: Anion Gap 14 (12-20); Blood Urea Nitrogen 6 mg/dL (9-16); Carbon Dioxide 24 mmol/L (22-29); Chloride 98 mmol/L (96-108); Estimated Glomerular Filt Rate > 60; Glucose Fasting 134 mg/dL (60-99); Sodium 132 mmol/L (135-145)
[2022-01-20 09:59] LABS: Calcium 8.8 mg/dL (8.4-10.2); Potassium 3.9 mmol/L (3.3-5.1)
--- NOTE | 2022-01-20 10:57 | PC.NURSE ---
PT A&O. OOB AD EMI STEADY GAIT. TOLERATED DIET. DENIES PAIN. VOIDING WELL. . SHIFT ASSESSMENT NEG. AWAITING LABS AND DISCHARGE. SR ON MOTOR BOSS.
[2022-01-20 11:34] LABS: Alanine Aminotransferase 77 U/L (0-31); Alkaline Phosphatase 152 U/L (39-117); Aspartate Amino Transferase 184 U/L (5-31); Bilirubin Direct 8.8 mg/dL (0.0-0.5); Bilirubin Total 11.8 mg/dL (0.0-1.0); Total Protein 6.1 g/dL (6.5-8.0)
--- NOTE | 2022-01-20 12:03 | PM.DS ---
DS: Providers Provider Date of Service: 01/20/22 Date of admission: 01/17/22 15:36 Primary care physician: Unknown Physician Consults: 01/17/22 15:36 Consult to Gastroenterology Routine Consulting Provider: Levon Veliz Reason for consultation: etoh hepatitis, pancreatitis DS: Diagnosis Discharge Diagnosis (1) Acute pancreatitis: Status: Acute DS: Summary Hospital Course Hospital Course: from initial hpi:Chief Complaint: abd pain 51F presented with left groin pain, nasuea, vomitting, abd pain.? Patient is a poor historian.? She drinks about 3 pt of vodka per day, has known cirrhosis, most recent total bilirubin was about 6 in October 2020.? She reports 3 days of being unable to drink due to abdominal pain, nausea, vomiting.? Pain is epigastric radiates diffusely, 10/10, no alleviating factors.? She also states that she pulled something in her left groin, on further questioning she states that she may have fallen but does not remember exactly when.? She has been able to ambulate but is having difficulty.? She has also been feeling withdrawal symptoms of shakiness and restlessness.? In ED patient noted to have significant elevation bilirubin to 12, withdrawal symptoms, CT imaging showed diffuse fatty infiltration of liver with small amount of biliary air present within the liver as well as focus of nondependent gas seen with distended gallbladder and small amount of pericholecystic fluid.? Concern was for acute cholecystitis.? Also noted to have mild splenomegaly, 9 mm CBD, and left inferior pubic ramus fracture.? Surgery was consulted who felt this was unlikely to be acute cholecystitis. hospital course: patient was admitted for acute pancreatitis and acute alcoholic hepatitis. she was given IV fluids and pain medications. she was eventually able to tolerate solid diet, LFTS stabilized. course was complicated by alcohol dependence with withdrawal. she was treated with phenobarbital and symptoms resolved. for her alcohol cirrhosis with acute metbaolic encephalopathy, she was given lactulose and rifaximin, mental status returned to baseline. she has thrombocytopenia and coagulopathy due to liver disease. she was noted to have left pubic ramus fracture, she was able to ambulate. patient will be discharged home on prednisone taper, she will follow up with gi. Time Spent with Patient Time attestation: Total time spent providing and/or coordinating discharge services: Discharge coordination time: Greater than 30 minutes Quality: Stroke Does the patient have a stroke diagnosis?: No Physical Exam Vital Signs: Vital Signs: Last Vital Signs Temp 98 F 01/20/22 04:13 Pulse 92 01/20/22 04:13 Resp 18 01/20/22 04:13 BP 116/76 01/20/22 04:13 Pulse Ox 92 01/20/22 04:13 BMI result Body Mass Index 25.7 General: AO X 3, no acute distress, juandiced Resp: CTA bilateral, no accessory muscles used CVS: S1,S2,RRR GI: soft, non tender, non distended Neuro: motor grossly intact, alert Psych: appropriate affect, appropriate insight DS: Data Data Completed and Pending Labs on day of discharge: Laboratory Results - last 24 hr 01/20/22 01/20/22 09:01 09:01 WBC 7.2 RBC 3.83 L Hgb 12.3 Hct 37.2 MCV 97.1 MCH 32.1 MCHC 33.1 RDW 15.1 Plt Count 105 L MPV 10.7 Absolute Nucleated RBC 0.000 Nucleated RBC % (auto) 0.0 Sodium 132 L Potassium 3.9 D Chloride 98 Carbon Dioxide 24 Anion Gap 14 BUN 6 L Creatinine 0.55 Estim Creat Clear Calc 112.0 Estimated GFR > 60 Fasting Glucose 134 H Calcium 8.8 D Total Bilirubin 11.8 H Direct Bilirubin 8.8 H AST 184 H ALT 77 H Alkaline Phosphatase 152 H D Total Protein 6.1 L Albumin 3.0 L Preliminary micro results at discharge 01/17/22 12:00 Blood Culture - Preliminary Blood - Venous No growth after 48 hours. 01/17/22 11:37 Blood Culture - Preliminary Blood - Venous No growth after 48 hours. Discharge Plan Discharge Patient Disposition: Home, Self-Care Discharge Diagnosis: alcohol hepatitis, pubic ramus fracture Referrals: Physician,Unknown J [Primary Care Provider] - 1 Week Discharge Medications: New pantoprazole [Protonix] 40 mg tablet,delayed release (DR/EC) 40 mg PO DAILY Qty: 30 0RF sucralfate 1 gram tablet 1 g PO TID Qty: 60 0RF lorazepam [Ativan] 1 mg tablet 1 mg PO Q4-6H PRN (Reason: alcohol withdrawal) Qty: 14 0RF prednisone 10 mg tablet 40 mg PO DAILY Qty: 40 0RF Rx Instructions: 40mg daily for 4 days, decreased by 10mg daily every 4 days Discharge Orders: Discharge Order (Routine); Ordered 01/20/22 Ordered By: Arslan Murillo Diet: advance to usual diet Activity on Discharge: As tolerated Stand Alone Forms: Patient Portal Discharge page Activity Restrictions/Additional Instructions: stop drinking alcohol Ativan as advised for alcohol withdrawal Protonix for gastritis report to the ER if increased abdominal pain / vomiting blood Care Plan Goals: avoid liver failure Health Concerns: liver failure, etoh use Plan of Treatment: no alcohol, prednisone taper, follow up gi Assessment: see above Patient Instructions: Gastritis (ED), Abuse of Alcohol (ED)
--- NOTE | 2022-01-20 12:04 | MHC.CM.PN ---
Addendum entered by Fanny Monahan 01/22/22 11:14: Patient was d/c'd with need for VNA for PT, SN and OT. Referral broadcasted in [employer]. [facility] is able to accept patient. Original Note: Received notification that patient will be discharged home without services. Patient will arrange her own transport. Continue to monitor for d/c needs.
--- NOTE | 2022-01-20 12:46 | P.F2F_ITS ---
Service Date Service Date: 01/20/22 Encounter Date of encounter: 01/20/22 Reasons for Services Signs and symptoms assessed: unsteady gait, weakness Reason for group home: medication management, medication treatment and teach disease management Reason for physical therapy: home safety and mobility, therapeutic exercises, restore joint function and gait/transfer training Reason for occupational therapy: home safety and mobility, therapeutic exercises and restore joint function Homebound: Leaving the home is medically contraindicated at this time without the asist of a device and/or another person due th the listed conditions above and below. Reason homebound: unsteady gait / fall risk Certification: Based on the above findings, I certify that this patient is confined to the home and needs intermittent group home care, physical therapy and/or speech therapy, or continues to need occupational therapy. The patient is under my care, and I have initiated the establishment of the plan of care. The patient will be followed by a physician who will periodically review the plan of care.
[2022-01-21 07:29] LABS: Hepatitis A Antibody IgM 0.34 Index (0-0.79); ~Hepatitis A Antibody IgM Nonreactive (Nonreactive)
== END 2022-01-20 13:32 | disposition home health service (06) | DRG 280 ==
LOC: HO.ED 10:56 → HO.EDOVER 15:47
PROVIDERS: Physician Assistant Medical; Admitting Provider Internal Medicine; Emergency Provider Internal Medicine; PCP Family Medicine; Visit Provider Internal Medicine
DX: K70.30 Alcoholic cirrhosis of liver without ascites (principal); K70.10 Alcoholic hepatitis without ascites; G93.41 Metabolic encephalopathy; K85.20 Alcohol induced acute pancreatitis without necrosis or infection; D68.9 Coagulation defect, unspecified; F10.239 Alcohol dependence with withdrawal, unspecified; S32.592A Other specified fracture of left pubis, initial encounter for closed fracture; D69.59 Other secondary thrombocytopenia; W19.XXXA Unspecified fall, initial encounter; Z20.822 Contact with and (suspected) exposure to COVID-19; Z79.899 Other long term (current) drug therapy
CPT/HCPCS: 36415; 74177; 74181; 80048; 80053; 80076; 80143; 82077; 83605; 83690; 83735; 85025; 85027; 85610; 86704; 86706; 86709; 86803; 87040; 87340; 87635; 99285; J2060; J2270; J2405; J2543; J2560; J3430; Q9967

== ENCOUNTER 2022-03-26 05:17 | Inpatient (IN) | payer MEDICAID, SELFPAY ==
--- NOTE | ~2022-03-26 | XR_ITS ---
EXAMINATION: LEFT FOOT. RIGHT ANKLE. CLINICAL INFORMATION: Evaluation of wound. COMPARISON: None TECHNIQUE: 3 views of the left foot. 3 views of the right ankle. FINDINGS: Left foot: Diffuse osteopenia. Joint spaces preserved. First toe intact with no fracture or destructive process or radiopaque foreign body. Small plantar spur noted. Minor spurring along the dorsal midfoot. There is slight dorsal soft tissue swelling over the midfoot but no underlying osseous abnormality. Right ankle: The ankle mortise is intact. No fracture, dislocation or destructive lesion or radiopaque foreign body. Moderate-sized plantar spur noted. XR/XR ankle RT 2V IMPRESSION: Bilateral arthritic changes. Dorsal soft tissue swelling over the left foot. No osseous destructive processes.
--- NOTE | ~2022-03-26 | MR_ITS ---
EXAMINATION: MR LUMBAR SPINE WITHOUT CONTRAST CLINICAL INFORMATION: Back pain. Left leg weakness. COMPARISON: CT abdomen and pelvis from 01/17/2022. TECHNIQUE: MRI of the lumbar spine was obtained using routine sequences without contrast. FINDINGS: Straightening of the normal lumbar lordosis. Mild degenerative retrolisthesis of L5 on S1. Generalized decrease in T1 and T2 marrow signal throughout the osseous structures. Moderate degenerative disc disease at T10-T11 and from L1-S1. Associated mild mixed Modic type discogenic endplate changes including minimal Modic type I discogenic edema at L5-S1. No additional suspicious marrow edema. The vertebral body heights are largely maintained. The conus medullaris terminates at the level of L2. The distal spinal cord is normal in appearance. Moderate subcutaneous edema within the soft tissues of the back. Moderate edema within the left paraspinal musculature of the lower back from L2-S2 without demonstrated discrete drainable fluid collection. No additional significant abnormalities of the paraspinal musculature. Limited evaluation of the intra-abdominal structures without significant abnormalities. The abdominal aorta is of normal contour and caliber. AXIAL SPINAL LEVELS: L1-L2: Mild diffuse disc bulge. There is mild bilateral facet joint arthropathy. There is no neural foraminal stenosis. There is no spinal canal stenosis. L2-L3: Mild diffuse disc bulge with superimposed right subarticular disc protrusion. There is moderate left and mild right facet joint arthropathy. There is moderate right and mild left neural foraminal stenosis. There is no spinal canal stenosis. L3-L4: Mild diffuse disc bulge with superimposed right subarticular disc protrusion. There is moderate bilateral facet joint arthropathy. There is mild right and no left neural foraminal stenosis. There is no spinal canal stenosis. L4-L5: Moderate diffuse disc bulge with superimposed left subarticular/foraminal disc protrusion. There is severe bilateral facet joint arthropathy. Small to moderate bilateral facet joint effusions. There is mild to moderate bilateral neural foraminal stenosis. There is stenosis of the subarticular zones with mild spinal canal stenosis centrally. L5-S1: Moderate diffuse disc bulge. There is moderate bilateral facet joint arthropathy. There is moderate right and mild left neural foraminal stenosis. There is narrowing of the subarticular zones with no overt spinal canal stenosis centrally. MR/MR lumbar spine wo con IMPRESSION: 1. Moderate multilevel degenerative spondyloarthropathy of the lumbar spine as described in detail above. Most notably, there is mild spinal canal stenosis at L4-L5. Narrowing/stenoses of the subarticular zones at L4-L5 and L5-S1. Moderate neural foraminal stenoses at L2-L3, L4-L5, and L5-S1. 2. Moderate soft tissue edema within the posterior soft tissues of the back. Most notably, there is moderate edema within the left paraspinal musculature from L2 to S2 with some heterogeneity suggestive of muscular strain/hematoma. No demonstrated discrete drainable fluid collection at this time. 3. Diffusely decreased marrow signal throughout the osseous structures. This may be seen as sequela of underlying metabolic derangement or hematopoietic/lymphoproliferative disorder.
--- NOTE | ~2022-03-26 | CT_ITS ---
EXAMINATION: CT HEAD WITHOUT CONTRAST CLINICAL INFORMATION: Left lower extremity weakness/numbness COMPARISON: None TECHNIQUE: Contiguous axial imaging was performed from the skull base to vertex without intravenous administration of contrast. This CT examination was performed using dose optimization techniques as appropriate, variously including the following: *Automated exposure control *Adjustment of mA and/or kV according to patient size (this includes techniques or standardized protocols for targeted exams where dose is matched to indication/reason for exam; i.e. extremities or head) *Use of iterative reconstruction technique DLP: 559 mGy-cm FINDINGS: There is no evidence of acute intracranial hemorrhage or territorial infarction. No abnormal mass effect or midline shift is seen. Gonsalves to white matter differentiation is well preserved. No extra-axial fluid collections are identified. The ventricles are normal in size. There is no abnormal attenuation within the brain parenchyma. The osseous structures and soft tissues are normal. The mastoid air cells and visualized portions of the paranasal sinuses are well aerated. CT/CT head/brain wo con IMPRESSION: No acute intracranial pathology.
--- NOTE | ~2022-03-26 | XR_ITS ---
EXAMINATION: LEFT FOOT. RIGHT ANKLE. CLINICAL INFORMATION: Evaluation of wound. COMPARISON: None TECHNIQUE: 3 views of the left foot. 3 views of the right ankle. FINDINGS: Left foot: Diffuse osteopenia. Joint spaces preserved. First toe intact with no fracture or destructive process or radiopaque foreign body. Small plantar spur noted. Minor spurring along the dorsal midfoot. There is slight dorsal soft tissue swelling over the midfoot but no underlying osseous abnormality. Right ankle: The ankle mortise is intact. No fracture, dislocation or destructive lesion or radiopaque foreign body. Moderate-sized plantar spur noted. XR/XR toe LT min 2V IMPRESSION: Bilateral arthritic changes. Dorsal soft tissue swelling over the left foot. No osseous destructive processes.
--- NOTE | ~2022-03-26 | US_ITS ---
EXAMINATION: US VENOUS ULTRASOUND WITH DOPPLER LOWER EXTREMITY, LEFT CLINICAL INFORMATION: Left leg swelling. COMPARISON: None TECHNIQUE: Ultrasound of the deep veins is performed from the hip to the calf with compression sonography and color and pulse Doppler assessment. Spectral analysis with color-flow imaging is performed. FINDINGS: There is normal venous compression and respiratory variation and augmented flow. The visualized common femoral vein, superficial femoral vein, profunda femoral vein, popliteal vein, and the trifurcation region shows no evidence of deep venous thrombosis. There is no significant popliteal fossa cyst. The contralateral right common femoral vein appears normal If the patient's symptoms persist, followup ultrasound in 5 days 7 days might be of value to exclude proximal propagation from a non-visualized calf vein. US/US venous duplex LE LT IMPRESSION: No DVT demonstrated in the left lower extremity.
--- NOTE | ~2022-03-26 | MR_ITS ---
EXAMINATION: BRAIN MRI WITHOUT CONTRAST CLINICAL INFORMATION: Weakness. Question stroke. COMPARISON: CT scan the head 03/26/2022. TECHNIQUE: Multiplanar MR imaging the brain was performed without contrast. FINDINGS: There is a questionable punctate focus of restricted diffusion involving the left external capsule best depicted on axial image 18 of 32 series 4. Otherwise no acute territorial infarct. No pathological magnetic susceptibility artifact. A few scattered nonspecific foci of T2 FLAIR signal hyperintensity are visualized within the periventricular white matter. Intracranial vascular flow voids are maintained. There is no intracranial mass effect or midline shift. No abnormal extra-axial collection. Lateral and third ventricles are proportionate to the subarachnoid spaces. No hydrocephalus. Midline structures including the cervicomedullary junction are normal. No acute bone marrow signal changes. There is no mastoid or middle ear effusion. Mild to moderate paranasal sinus disease primarily affecting the ethmoid air cells. MR/MR head/brain wo con IMPRESSION: Questionable punctate white matter infarct involving the left external capsule. Otherwise no evidence of acute territorial infarct. A few scattered chronic small vessel ischemic changes are visualized within the periventricular white matter. No acute intracranial mass effect, hemorrhage, or hydrocephalus.
[2022-03-26 05:19] VITALS: BP 131/78; PULSE 113; O2SAT 98
[2022-03-26 05:38] VITALS: BP 140/98; PULSE 106; RESP 16; TEMP 36.9; O2SAT 99; BMI 27.4
[2022-03-26 08:38] LABS: MANUAL DIFF FLAG NO
[2022-03-26 08:40] LABS: Basophils Absolute Auto 0.1 X10*3/uL (0.0-0.2); Eosinophils Absolute Auto 0.3 X10*3/uL (0.0-0.4); Eosinophils Percent Auto 3.8 % (0-4); Hematocrit 33.1 % (37.0-47.0); Imm Gran Abs Auto 0.03 X10*3/uL (0.00-0.03); Imm Gran Pct Auto 0.4 % (0.0-0.4); Lymphocytes Absolute Auto 2.4 X10*3/uL (1.2-4.9); Mean Corpuscular HGB Conc 33.2 g/dl (31.0-35.0); Mean Corpuscular Hemoglobin 32.6 pg (27.0-33.0); Mean Corpuscular Volume 98.2 fL (80.0-98.0); Mean Platelet Volume 9.4 fL (9.4-12.3); Monocytes Absolute Auto 0.8 X10*3/uL (0.1-1.2); Monocytes Percent Auto 9.8 % (2-11); Neutrophils Absolute Auto 4.6 x10*3/uL (2.0-8.3); Platelet Count 277 X10*3/uL (160-400); Red Blood Count 3.37 X10*6/uL (4.20-5.50); Red Cell Distribution Width 12.7 % (11.0-16.0); White Blood Count 8.2 X10*3/uL (4.8-10.8)
--- NOTE | 2022-03-26 08:56 | ED_ITS ---
HPI - Extremity Problem General Chief complaint: Extremity Problem Stated complaint: swelling in legs Time Seen by Provider: 03/26/22 08:34 Source: patient and EMS Mode of arrival: EMS Limitations: no limitations History of Present Illness HPI Narrative: 51-year-old female came in for evaluation of bilateral lower extremities weakness and swelling. 51-year-old female with history of alcohol abuse and IV heroin abuse, patient also known to have a history of nondiabetic peripheral neuropathy, patient dropped a table on her left great toe few weeks ago, because patient did not have pain ( because the peripheral neuropathy) did not seek medical attention, until 2 days ago patient noticed worsening of bilateral lower extremities edema and weakness, patient was unable to ambulate with multiple falls at home, patient had to use a chair to help her to walk around, been complaining of back pain for more than 2 months. Patient declined any fever or chills, no urinary or stool incontinence. Related Data Previous Rx's Medication Instructions Recorded lorazepam 1 mg tablet (Ativan) 1 mg PO Q4-6H PRN #14 tab 01/17/22 pantoprazole 40 mg tablet,delayed 40 mg PO DAILY #30 tab 01/17/22 release (Protonix) sucralfate 1 gram tablet 1 g PO TID #60 tab 01/17/22 prednisone 10 mg tablet 40 mg PO DAILY #40 tab 01/20/22 doxycycline hyclate 100 mg tablet 100 mg PO BID #14 tab 03/26/22 Allergies Allergy/AdvReac Type Severity Reaction Status Date / Time SEASONAL ALLERGIES Allergy Unknown SNEEZING, Uncoded 03/26/22 05:43 ITCHING Review of Systems Review of Systems: all other systems are reviewed and are negative Constitutional: Reports as per HPI and Reports no additional constitutional complaints Eyes: Reports as per HPI and Reports no additional eye complaints Reports system reviewed and no additional complaints, except as documented Cardiovascular: Reports as per HPI and Reports no additional cardiovascular complaints Respiratory: Reports as per HPI and Reports no additional respiratory complaints Gastrointestinal: Reports as per HPI and Reports no additional gastrointestinal complaints Genitourinary: Reports no additional female genitourinary complaints Musculoskeletal: Reports no additional musculoskeletal complaints Skin/Breast: Reports system reviewed and no additional complaints, except as docu Psychiatric: Reports no additional psychiatric complaints Endocrine: Reports no additional endocrine complaints Hematologic/Lymphatic: Reports no additional hematologic/lymphatic complaints Allergic/Immunologic: Reports no additional allergic/immunologic complaints Reports system reviewed and no additional complaints, except as documented and Reports Abnormal speech present [facility] Past Medical History Medical History delivery delivered Opioid abuse Family History Family History Father No family history of coronary artery disease Mother No family history of coronary artery disease Social History Social History Household Members: Children Housing: Apartment Do you presently have visiting nurse or other home services: No Alcohol intake: current Alcohol intake frequency: 3 or more drinks per day Patient Tobacco Use Status: Never used Tobacco Substance Use Type: Heroin Advance Directives: No Advance Directives Information Provided: No service: No Current occupational status: employed Physical Exam Vital Signs: Vital Signs: Last Vital Signs Temp 98.4 F 03/26/22 05:38 Pulse 106 H 03/26/22 05:38 Resp 16 03/26/22 05:38 BP 140/98 H 03/26/22 05:38 Pulse Ox 99 03/26/22 05:38 BMI result Body Mass Index 27.4 vital signs have been reviewed as appeared to be correct. Blood pressure normal. Heart rate normal. Respiration rate normal. Temperature normal. Oxygen saturation normal. Appearance: Alert. Oriented X3. No acute distress. Head: Normal external exam. Normocephalic. Atraumatic. No Meyer signs noted. No raccoon eyes noted Eyes: PERRLA. EOMI. Conjunctiva and sclera normal. Eyelids normal. ENT: TM's Normal. Pharynx normal. Uvula midline. Moist mucous membranes. No trismus noted. No drooling noted. No muffled voice noted. Neck: Normal inspection. Neck supple. FROM. No adenopathy. Thyroid Normal. No meningeal signs. No neck mass noted. CVS: Normal heart rate and rhythm. Heart sound normal. No murmurs noted. Pulses normal throughout. Respiratory: No respiratory distress. Painless inspiration. Breath sounds normal. No wheezes/rales/rhonchi noted. Chest nontender. No accessory muscle usage noted or decreased air movement noted. Abdomen: Soft and nontender. Bowel sounds normal in all 4 quadrants. No distention noted. No organomegaly noted. No visible injury noted. Back: No CVA tenderness. Full range of motion noted. Skin: Skin warm and dry. Normal skin color. Normal skin turgor. No cody hes/lesions/lacerations noted. Extremities: Left foot/ ankle edema +2 pitting, old scar on the left great toe with a dark spot at the tip of the left toe, no skin shu changes, palpable PT and DP. Neuro: Oriented X 3. Cranial nerve exam: II-XII are grossly intact No motor deficit. No sensory deficit. Reflexes normal. Course Course Course Narrative: Assessment and plan. 51-year-old female came in with bilateral lower extremity weakness, patient with known history of nonalcoholic peripheral neuropathy and decreased sensation in both lower extremities patient had trauma to her left foot 2 weeks ago the patient did not seek medical attention, now left big toe appear infected, x-ray showing no osteomyelitis. no DVT on the ultrasound left lower extremity. Patient With history of IV drug abuse and back pain with bilateral lower extremities weakness no urinary incontinence is awaiting for MRI of her lumbar spine to rule out epidural acute finding lesion and the case signed out to Dr. Negro. patient is refusing placement to rehab. MDM - Extremity (Nontraumatic) Lab Data Attestation: I reviewed the patient's lab results. Result diagrams: 03/26/22 08:33 03/26/22 08:33 Labs: Lab Results 03/26/22 03/26/22 03/26/22 Range/Units 08:33 08:33 08:33 WBC 8.2 (4.8-10.8) X10*3/uL RBC 3.37 L (4.20-5.50) X10*6/uL Hgb 11.0 L (12.0-16.0) g/dl Hct 33.1 L (37.0-47.0) % MCV 98.2 H (80.0-98.0) fL MCH 32.6 (27.0-33.0) pg MCHC 33.2 (31.0-35.0) g/dl RDW 12.7 (11.0-16.0) % Plt Count 277 D (160-400) X10*3/uL MPV 9.4 (9.4-12.3) fL Immature Gran % (Auto) 0.4 (0.0-0.4) % Neut % (Auto) 56.0 (45-73) % Lymph % (Auto) 29.0 (20-40) % [place] % (Auto) 9.8 (2-11) % Eos % (Auto) 3.8 (0-4) % Baso % (Auto) 1.0 (0-2) % Lymph # (Auto) 2.4 (1.2-4.9) X10*3/uL [place] # (Auto) 0.8 (0.1-1.2) X10*3/uL Eos # (Auto) 0.3 (0.0-0.4) X10*3/uL Baso # (Auto) 0.1 (0.0-0.2) X10*3/uL Abs Immat Gran (auto) 0.03 (0.00-0.03) X10*3/uL Absolute Neuts (auto) 4.6 (2.0-8.3) x10*3/uL Absolute Nucleated RBC 0.000 (0.0-0.012) X10*3/uL Nucleated RBC % (auto) 0.0 (0.0-0.2) /100WBC Sodium 138 (135-145) mmol/L Potassium 4.3 (3.3-5.1) mmol/L Chloride 103 (96-108) mmol/L Carbon Dioxide 25 (22-29) mmol/L Anion Gap 14 (12-20) BUN 9 (9-16) mg/dL Creatinine 0.63 (0.5-1.4) mg/dL Estim Creat Clear Calc 100.8 Estimated GFR > 60 Random Glucose 108 (60-115) mg/dL Calcium 9.3 (8.4-10.2) mg/dL Total Bilirubin 0.7 (0.0-1.0) mg/dL AST 48 H D (5-31) U/L ALT 49 H (0-31) U/L Alkaline Phosphatase 117 D (39-117) U/L B-Natriuretic Peptide < 10 (<100) pg/mL Total Protein 6.2 L (6.5-8.0) g/dL Albumin 3.3 L (3.5-5.0) g/dL Imaging Data left foot/ left ankle x-ray.: Attestation: I personally reviewed and interpreted this imaging study as follows: Radiologist's impression: Bilateral arthritic changes. Dorsal soft tissue swelling over the left foot. No osseous destructive processes.? Left lower extremities ultrasound: Attestation: I personally reviewed and interpreted this imaging study as follows: Radiologist's impression: no DVT in the left lower extremities. Discharge Plan Discharge Clinical Impression: Injury of toe, left, superficial, infected, Unable to ambulate Patient Disposition: Still a Patient Prescriptions: New doxycycline hyclate 100 mg tablet 100 mg PO BID Qty: 14 0RF No Action pantoprazole [Protonix] 40 mg tablet,delayed release (DR/EC) 40 mg PO DAILY Qty: 30 0RF sucralfate 1 gram tablet 1 g PO TID Qty: 60 0RF lorazepam [Ativan] 1 mg tablet 1 mg PO Q4-6H PRN (Reason: alcohol withdrawal) Qty: 14 0RF prednisone 10 mg tablet 40 mg PO DAILY Qty: 40 0RF Rx Instructions: 40mg daily for 4 days, decreased by 10mg daily every 4 days
[2022-03-26 08:57] LABS: Alanine Aminotransferase 49 U/L (0-31); Albumin Level 3.3 g/dL (3.5-5.0); Alkaline Phosphatase 117 U/L (39-117); Anion Gap 14 (12-20); Aspartate Amino Transferase 48 U/L (5-31); Bilirubin Total 0.7 mg/dL (0.0-1.0); Blood Urea Nitrogen 9 mg/dL (9-16); Calcium 9.3 mg/dL (8.4-10.2); Carbon Dioxide 25 mmol/L (22-29); Chloride 103 mmol/L (96-108); Creatinine Clr Calc Pharmacy 100.8; Estimated Glomerular Filt Rate > 60; Glucose Random 108 mg/dL (60-115); Potassium 4.3 mmol/L (3.3-5.1); Sodium 138 mmol/L (135-145); Total Protein 6.2 g/dL (6.5-8.0)
[2022-03-26 09:01] LABS: B Type Natriuretic Peptide < 10 pg/mL (<100)
[2022-03-26 21:22] VITALS: BP 118/77; PULSE 120; RESP 18; TEMP 36.9; O2SAT 96
--- NOTE | 2022-03-26 22:17 | PHA.MEDREC ---
Pharmacy Consult ? Medication Reconciliation Pharmacy has completed the medication reconciliation. Patient states they take gabapentin 300mg, no history of filling. Last fill per PDMP is 2 years ago. Pt states they might be on prozac. No history of SSRI/SNRI from [facility] in last two years. She spreads suboxone dose Thanks Mio
[2022-03-26 22:21] LABS: CSF Appearance Clear, Colorless; CSF Tube # 1
--- NOTE | 2022-03-26 22:29 | P.HPHOSP_ITS ---
History of Present Illness Date of Service: 03/26/22 Chief Complaint: Left lower extremity weakness/numbness 51-year-old female with a past medical history of alcohol abuse, alcoholic neuropathy, opiate abuse on Suboxone; currently sober; presented to the hospital today with a chief complaint of left lower extremity weakness/numbness. Patient reports that couple days ago she had of weight fall on her great toe, later that night she noted dark tissue, redness of her great toe on the left side. Mentions she did not feel any pain because she has longstanding history of neuropathy in bilateral feet and has been following with Neurology. Patient reports that yesterday morning when she woke up she was not able to use her left lower extremity and fell from the bed onto the floor; Also mentions she has been noted numbness in her left leg; reports he has tingling sensation bilateral fluids attributes to her neuropathy. Denies any low back pain. Denies any falls or injury Denies any recent IV drug abuse; denies any fever chills; Patient reports that she has to drag her left lower extremity; Denies any chest pain or palpitations Review of all other systems is negative except mentioned above ER course: Per ER team patient noted to have significant weakness in her left lower extremity, absent patellar reflexes on the left lower extremity; strength 1/5 on the left lower extremity; MRI of the L-spine was done which showed no acute findings but noted chronic degenerative changes; LP was done-results pending; patient was given empiric antibiotics for left great toe infection after injury. Admitted for further management PMFSH Medical History delivery delivered Opioid abuse Family History Father No family history of coronary artery disease Mother No family history of coronary artery disease Social History Household Members: Children Housing: Apartment Do you presently have visiting nurse or other home services: No Alcohol intake: current Alcohol intake frequency: 3 or more drinks per day Patient Tobacco Use Status: Never used Tobacco Substance Use Type: Heroin Advance Directives: No Advance Directives Information Provided: No service: No Current occupational status: employed Meds Allergies Allergy/AdvReac Type Severity Reaction Status Date / Time SEASONAL ALLERGIES Allergy Unknown SNEEZING, Uncoded 03/26/22 05:43 ITCHING Active Medications: Current Medications Acetaminophen (Acetaminophen 325 Mg Tablet) 650 mg PO Q6H PRN PRN Reason: Pain, Mild (Pain Scale 1-3) Heparin Sodium (Porcine) (Heparin Sodium,Porcine 5,000 Unit/Ml Vial) 5,000 unit SUBCUT Q8H [facility] Melatonin (Melatonin 3 Mg Tablet) 6 mg PO BEDTIME PRN PRN Reason: Insomnia Senna (Sennosides 8.6 Mg Tablet) 17.2 mg PO BEDTIME PRN PRN Reason: Constipation Sodium Chloride (0.9 % Sodium Chloride Flush 3 Ml Syringe) 3 ml IVFLUSH QSHIFT [facility] Home Medications Medication Instructions Recorded Confirmed Last Taken Type amitriptyline 150 mg tablet 1 tab PO BEDTIME 03/26/22 03/26/22 03/25/22 History buprenorphine 8 mg-naloxone 2 mg 1 strip SUBLINGUAL BID 03/26/22 03/26/22 03/26/22 History sublingual film (Suboxone) hydroxyzine HCl 25 mg tablet 1 tab PO TID PRN 03/26/22 03/26/22 Unknown History trazodone 100 mg tablet 2 tab PO BEDTIME PRN 03/26/22 03/26/22 03/25/22 History Physical Exam Vital Signs and Narrative: Vital Signs: Last Vital Signs Temp 98.4 F 03/26/22 21: Pulse 120 H 03/26/22 21:22 Resp 18 03/26/22 21:22 BP 118/77 03/26/22 21:22 Pulse Ox 96 03/26/22 21:22 BMI result Body Mass Index 27.4 Gen: Appears be in no acute distress HEENT: NCAT, Moist mucosa. Pulmonary: Vesicular breath sounds, fair air entry CVS: Normal S1-S2 Abdomen: BS+, Soft, Nontender Extremities: Warm well perfused Neuro: Alert and awake. Oriented x3; right lower extremity/right upper extremity sensations normal and strength 5/5; left lower extremity strength 1/5 at the hip flexion, knee flexion and extens ion, ankle dorsiflexion; 4/5 on ankle plantar flexion. Sensations decreased on the left lower extremity compared to the right. Speech is clear, cranial nerves intact. Straight leg raise test negative No spinal tenderness Results Labs CBC and Chem 7: 03/26/22 08:33 03/26/22 08:33 Labs: Laboratory Results - last 24 hr 03/26/22 03/26/22 03/26/22 08:33 08:33 08:33 MCV 98.2 H MCH 32.6 MCHC 33.2 RDW 12.7 Plt Count 277 D MPV 9.4 Immature Gran % (Auto) 0.4 Neut % (Auto) 56.0 Lymph % (Auto) 29.0 [place] % (Auto) 9.8 Eos % (Auto) 3.8 Baso % (Auto) 1.0 Lymph # (Auto) 2.4 [place] # (Auto) 0.8 Eos # (Auto) 0.3 Baso # (Auto) 0.1 Abs Immat Gran (auto) 0.03 Absolute Neuts (auto) 4.6 Absolute Nucleated RBC 0.000 Nucleated RBC % (auto) 0.0 Anion Gap 14 Estim Creat Clear Calc 100.8 Estimated GFR > 60 Random Glucose 108 Calcium 9.3 Total Bilirubin 0.7 AST 48 H D ALT 49 H Alkaline Phosphatase 117 D B-Natriuretic Peptide < 10 Total Protein 6.2 L Albumin 3.3 L CSF Tube Number CSF Appearance (b) 03/26/22 21:52 MCV MCH MCHC RDW Plt Count MPV Immature Gran % (Auto) Neut % (Auto) Lymph % (Auto) [place] % (Auto) Eos % (Auto) Baso % (Auto) Lymph # (Auto) [place] # (Auto) Eos # (Auto) Baso # (Auto) Abs Immat Gran (auto) Absolute Neuts (auto) Absolute Nucleated RBC Nucleated RBC % (auto) Anion Gap Estim Creat Clear Calc Estimated GFR Random Glucose Calcium Total Bilirubin AST ALT Alkaline Phosphatase B-Natriuretic Peptide Total Protein Albumin CSF Tube Number 1 CSF Appearance (b) Clear, Colorless Imaging Radiologist's Impressions: Impressions Ankle X-Ray 03/26/22 09:06 IMPRESSION: Bilateral arthritic changes. Dorsal soft tissue swelling over the left foot. No osseous destructive processes. Toe X-Ray 03/26/22 09:06 IMPRESSION: Bilateral arthritic changes. Dorsal soft tissue swelling over the left foot. No osseous destructive processes. Venous Duplex 03/26/22 09:56 IMPRESSION: No DVT demonstrated in the left lower extremity. Lumbar Spine MRI 03/26/22 18:16 IMPRESSION: 1. Moderate multilevel degenerative spondyloarthropathy of the lumbar spine as described in detail above. Most notably, there is mild spinal canal stenosis at L4-L5. Narrowing/stenoses of the subarticular zones at L4-L5 and L5-S1. Moderate neural foraminal stenoses at L2-L3, L4-L5, and L5-S1. 2. Moderate soft tissue edema within the posterior soft tissues of the back. Most notably, there is moderate edema within the left paraspinal musculature from L2 to S2 with some heterogeneity suggestive of muscular strain/hematoma. No demonstrated discrete drainable fluid collection at this time. 3. Diffusely decreased marrow signal throughout the osseous structures. This may be seen as sequela of underlying metabolic derangement or hematopoietic/lymphoproliferative disorder. Assessment and Plan Plan 51-year-old female with a past medical history of alcohol abuse, alcoholic neuropathy, opiate abuse on Suboxone; currently sober; presented to the hospital today with a chief complaint of left lower extremity weakness/numbness/left grade 2 injury; Admitted for following Left lower extremity numbness/weakness: MRI showed chronic degenerative changes; no evidence of abscess. moderate edema within the left paraspinal musculature from L2 to S2 with some heterogeneity suggestive of muscular strain/hematoma. CT head pending Fall precautions PT/OT Status post LP-results pending Neurology consult Neuro checks Left great toe injury/cellulitis: Status post trauma. Distal eschar-tissue on the tip of the great toe noted. Empirically covered with IV vancomycin and Zosyn. General surgery consult ? Hemopoietic/lymphoproliferative disorder: As noted on MRI with decreased marrow signaling. will consult Heme-Onc for further recommendations ? Osteopenia : Will obtain vitamin-D levels History of opiate dependence: Patient currently denies any opiate use. Patient on Suboxone. Addiction Medicine consult DVT prophylaxis: Subcu heparin Code status: Full code Quality Stroke Does the patient have a stroke diagnosis?: No VTE Prior VTE?: No VTE Risk Level:: Medical - moderate - high VTE Device Contraindication: Treatment Not Indicated VTE Drug Contraindication: N/A - Med Ordered
[2022-03-26 22:33] LABS: Glucose CSF 49 mg/dL; Total Protein CSF 25.8 mg/dL (15-45)
[2022-03-26 22:39] LABS: Appearance CSF CLEAR; CSF Tube # 4; Color CSF COLORLESS; Red Blood Cell CSF 3 MM*3; White Blood Cell CSF 0 MM*3
--- NOTE | 2022-03-26 22:48 | PHA.PROG ---
Admission Date/Time: March 26, 2022 22:27 Indication: Other Cellulitis Weight in k.575 kg Adjusted body weight in Kg: [place] body weight in Kg: Obesity Dosing Indication % IBW: Serum Creatinine - Last 168 Hours 03/26/22 08:33 Creatinine 0.63 Estimated CrCl and GFR - Last 168 Hours 03/26/22 08:33 Estim Creat Clear Calc 100.8 Estimated GFR > 60 Vancomycin Loading Dose: 1500 mg Current Vancomycin Dosing Regimen: 1g q12h Vancomycin Monitoring using AUC goal of 400 - 600 range with trough as surrogate marker: auc 448, trough 13.2 Date and Time for next Vancomycin Level to be drawn: 03/28 @ 0900 Pharmacist Comments on Vancomycin Plan: did not use obese model Vancomycin dosing will take advantage of [employer] as a clinical decision support tool that uses Bayesian modeling to calculate individual patient's pharmacokinetic parameters and forecast the patient's drug concentration time course with the target goal AUC 24 range of 400 - 600 mg/L/hr.
[2022-03-26 22:53] LABS: CSF Monos 0 %; Lymphocytes CSF 0 %; Neutrophils CSF 0 %
[2022-03-26 22:54] LABS: CSF Other Cells % 0 %
[2022-03-26] MEDS: Piperacillin Sodium/Tazobactam 3.375 GM in 0.9 % Sodium Chloride 50 ML IV (23:47)
[2022-03-26] MEDS: Heparin Sodium,Porcine 5,000 UNIT/ML VIAL 5000 UNIT SUBCUT (23:47)
[2022-03-27] MEDS: vancomycin HCL 1,500 MG in 0.9 % Sodium Chloride 500 ML 333.33 MG IV (00:30)
[2022-03-27] MEDS: 0.9 % Sodium Chloride Flush 3 ML SYRINGE IVFLUSH ×4 (00:31→21:16)
[2022-03-27 00:32] VITALS: BP 124/68; PULSE 102; RESP 18; O2SAT 98
[2022-03-27 03:58] LABS: COVID-19 Test Negative (Negative)
[2022-03-27] MEDS: Piperacillin Sodium/Tazobactam 3.375 GM in 0.9 % Sodium Chloride 50 ML IV ×4 (03:58→21:16)
[2022-03-27 05:49] VITALS: BP 100/61; PULSE 87; RESP 15; O2SAT 96
[2022-03-27] MEDS: Heparin Sodium,Porcine 5,000 UNIT/ML VIAL 5000 UNIT SUBCUT ×2 (06:06→21:18)
[2022-03-27] MEDS: Omeprazole 20 MG CAPSULE.DR PO (06:06)
[2022-03-27 07:05] LABS: MANUAL DIFF FLAG NO
[2022-03-27 07:09] LABS: Basophils Percent Auto 0.6 % (0-2); Eosinophils Absolute Auto 0.2 X10*3/uL (0.0-0.4); Eosinophils Percent Auto 3.6 % (0-4); Hematocrit 31.7 % (37.0-47.0); Hemoglobin 10.7 g/dl (12.0-16.0); Imm Gran Abs Auto 0.02 X10*3/uL (0.00-0.03); Imm Gran Pct Auto 0.3 % (0.0-0.4); Lymphocytes Absolute Auto 1.9 X10*3/uL (1.2-4.9); Lymphocytes Percent Auto 29.3 % (20-40); Mean Corpuscular HGB Conc 33.8 g/dl (31.0-35.0); Mean Corpuscular Hemoglobin 33.6 pg (27.0-33.0); Mean Corpuscular Volume 99.7 fL (80.0-98.0); Mean Platelet Volume 9.3 fL (9.4-12.3); Monocytes Absolute Auto 0.7 X10*3/uL (0.1-1.2); Monocytes Percent Auto 10.7 % (2-11); Neutrophils Absolute Auto 3.6 x10*3/uL (2.0-8.3); Neutrophils Percent Auto 55.5 % (45-73); Platelet Count 231 X10*3/uL (160-400); Red Blood Count 3.18 X10*6/uL (4.20-5.50); Red Cell Distribution Width 12.8 % (11.0-16.0); White Blood Count 6.4 X10*3/uL (4.8-10.8)
[2022-03-27 07:22] LABS: Anion Gap 10 (12-20); Blood Urea Nitrogen 9 mg/dL (9-16); Calcium 8.8 mg/dL (8.4-10.2); Carbon Dioxide 28 mmol/L (22-29); Chloride 106 mmol/L (96-108); Creatinine Clr Calc Pharmacy 93.4; Estimated Glomerular Filt Rate > 60; Glucose Random 97 mg/dL (60-115); Potassium 4.1 mmol/L (3.3-5.1); Sodium 140 mmol/L (135-145)
[2022-03-27 08:05] LABS: Folate 19.2 ng/mL (> or = 4.0); Vitamin B12 556 pg/mL (200-900)
[2022-03-27 08:26] VITALS: BP 107/61; PULSE 93; RESP 17; TEMP 36.9; O2SAT 95
[2022-03-27 08:27] VITALS: BP 107/61; PULSE 93; O2SAT 95
--- NOTE | 2022-03-27 08:30 | PC.NURSE ---
pt seen by dr coleman, aware of plan of care
--- NOTE | 2022-03-27 08:43 | PHA.PROG ---
Admission Date/Time: March 26, 2022 22:27 Indication: Cellulitis Weight in k.575 kg Adjusted body weight in K.8 [place] body weight in K.7 Obesity Dosing Indication % IBW: 132% Serum Creatinine - Last 168 Hours 03/26/22 03/27/22 08:33 06:57 Creatinine 0.63 0.68 Estimated CrCl and GFR - Last 168 Hours 03/26/22 03/27/22 08:33 06:57 Estim Creat Clear Calc 100.8 93.4 Estimated GFR > 60 > 60 Vancomycin Loading Dose: 1500 mg Current Vancomycin Dosing Regimen: 1000 mg Q12H Date and Time for next Vancomycin Level to be drawn: 03/28 @ 0900 Pharmacist Comments on Vancomycin Plan: Patient requires obesity dose as patient % IBW is > 130 % Renal function is stable. Pharmacy to continue to monitor daily Continue current regimen. Expected AUC 566 with a trough of 17.1 Leonora Regalado PharmD Vancomycin dosing will take advantage of [employer] as a clinical decision support tool that uses Bayesian modeling to calculate individual patient's pharmacokinetic parameters and forecast the patient's drug concentration time course with the target goal AUC 24 range of 400 - 600 mg/L/hr.
--- NOTE | 2022-03-27 10:01 | PC.NURSE ---
pt up oob to commode, did not like eggs for breakast so did not eat and says she will wait for lunch. snacks offered but pt declined, calm and cooperative, no diff breathing, no cp, nad.
[2022-03-27] MEDS: vancomycin HCL 1,000 MG in 0.9 % Sodium Chloride 250 ML 270 MG IV ×2 (10:42→22:32)
[2022-03-27] MEDS: Acetaminophen 325 MG TABLET 650 MG PO (10:43)
--- NOTE | 2022-03-27 11:42 | P.CNNE_ITS ---
History of Present Illness Data of Consult Service Date: 03/27/22 Primary Care Provider: Alice Martinez MD [facility] Reason for consult: Left leg weakness 51 years old woman with underlying history of chronic alcoholism though not drinking at this time and associated neuropathy. She has been seeing a neurologist in [place] and was treated with amitriptyline. This time she was here with new onset of left leg weakness that apparently started yesterday or couple of days ago. She had difficulty walking on that leg and her knee leg and foot with giveaway. There was no new pain. No obvious hand or arm weakness or face weakness was noted. Review of Systems Review of Systems: No recent cold or flu-like illness. [facility] Past Medical History Medical History delivery delivered Opioid abuse Family History Family History Father No family history of coronary artery disease Mother No family history of coronary artery disease Social History Social History Household Members: Children Housing: Apartment Do you presently have visiting nurse or other home services: No Alcohol intake: current Alcohol intake frequency: 3 or more drinks per day Patient Tobacco Use Status: Never used Tobacco Substance Use Type: Heroin Advance Directives: No Advance Directives Information Provided: No service: No Current occupational status: employed Meds Allergies Allergy/AdvReac Type Severity Reaction Status Date / Time SEASONAL ALLERGIES Allergy Unknown SNEEZING, Uncoded 03/26/22 05:43 ITCHING Active Medications: Current Medications Acetaminophen (Acetaminophen 325 Mg Tablet) 650 mg PO Q6H PRN PRN Reason: Pain, Mild (Pain Scale 1-3) Last Admin: 03/27/22 10:43 Dose: 650 mg Documented by: Amitriptyline HCl (Amitriptyline Hcl 50 Mg Tablet) 150 mg PO BEDTIME MARYANNE Heparin Sodium (Porcine) (Heparin Sodium,Porcine 5,000 Unit/Ml Vial) 5,000 unit SUBCUT Q8H [facility] Last Admin: 03/27/22 06:06 Dose: 5,000 unit Documented by: Hydroxyzine HCl (Hydroxyzine Hcl 25 Mg Tablet) 25 mg PO TID PRN PRN Reason: Anxiety Vancomycin HCl 1,000 mg/ (Sodium Chloride) 270 mls @ 270 mls/hr IV Q12H [facility] Last Admin: 03/27/22 10:42 Dose: 270 mls/hr Documented by: Piperacillin Sod/Tazobactam (Sod 3.375 gm/ Sodium Chloride) 50 mls @ 100 mls/hr IV Q6H [facility] Last Infusion: 03/27/22 05:57 Dose: Infused Documented by: Melatonin (Melatonin 3 Mg Tablet) 6 mg PO BEDTIME PRN PRN Reason: Insomnia Omeprazole (Omeprazole 20 Mg Capsule.Dr) 20 mg PO DAILY@0630 [facility] Last Admin: 03/27/22 06:06 Dose: 20 mg Documented by: Pharmacy Consult (Consult Rx Vancomycin Dosing) 1 each MISCELLANE DAILY PRN PRN Reason: Consult order Senna (Sennosides 8.6 Mg Tablet) 17.2 mg PO BEDTIME PRN PRN Reason: Constipation Sodium Chloride (0.9 % Sodium Chloride Flush 3 Ml Syringe) 3 ml IVFLUSH QSHIFT [facility] Last Admin: 03/27/22 08:25 Dose: 3 ml Documented by: Trazodone HCl (Trazodone Hcl 100 Mg Tablet) 200 mg PO BEDTIME PRN PRN Reason: Sleep Home Medications Medication Instructions Recorded Confirmed Last Taken Type amitriptyline 150 mg tablet 1 tab PO BEDTIME 03/26/22 03/26/22 03/25/22 History buprenorphine 8 mg-naloxone 2 mg 1 strip SUBLINGUAL BID 03/26/22 03/26/22 03/26/22 History sublingual film (Suboxone) hydroxyzine HCl 25 mg tablet 1 tab PO TID PRN 03/26/22 03/26/22 Unknown History trazodone 100 mg tablet 2 tab PO BEDTIME PRN 03/26/22 03/26/22 03/25/22 History Physical Exam Vital Signs: Vital Signs: Last Vital Signs Temp 98.4 F 03/27/22 08:26 Pulse 93 03/27/22 08:27 Resp 17 03/27/22 08:26 BP 107/61 03/27/22 08:27 Pulse Ox 95 03/27/22 08:27 BMI result Body Mass Index 27.4 Neuro: Other: He is alert and awake with normal spontaneity of speech fluency comprehension and affect. Face is symmetrical. Visual hayes are full. [id number] testing revealed mild ataxia. Mild ankle swelling is noted. Left big toe has a bruise. Plantars are flexor. Ankle reflexes are absent. Knee reflexes good 2+. She is able to sit stand up but could barely stand and not walk. She said that usually she could run. Results Labs CBC & Chem 7: 03/27/22 06:57 03/27/22 06:57 Labs: Short CBC 03/27/22 Range/Units 06:57 WBC 6.4 (4.8-10.8) X10*3/uL Hgb 10.7 L (12.0-16.0) g/dl Hct 31.7 L (37.0-47.0) % Plt Count 231 (160-400) X10*3/uL BMP 03/27/22 06:57 Sodium 140 Potassium 4.1 Chloride 106 Carbon Dioxide 28 BUN 9 Creatinine 0.68 Calcium 8.8 Microbiology Microbiology Results: Microbiology 03/26/22 21:51 Cerebrospinal Fluid Gram Stain - Final 03/26/22 21:51 Cerebrospinal Fluid CSF Examination - Final 03/26/22 21:51 Cerebrospinal Fluid Fluid Description - Final 03/26/22 21:51 Cerebrospinal Fluid CSF Culture - Preliminary Culture in progress. Assessment and Plan (1) Ataxia: Status: Acute 51 years old woman with history of alcohol abuse and chronic peripheral neuropathy treated by neurologist in [place] with amitriptyline. She came to hospital with new onset of left leg weakness. Her examination reveals sig nificant gait disorder or walking difficulty compared to baseline and relative hyperreflexia of knees. She also has significant signs of chronic peripheral neuropathy. Nature and etiology of neuropathy is unclear. Because of new onset of left leg symptoms I would recommend obtaining an MRI of brain to rule out any possibility of stroke or demyelinating disease. A noncontrast MRI can suffice. As far as neuropathy is concerned that can be investigated and managed as an outpatient with her neurologist Procedures Date of Service Date of Service: 03/27/22
--- NOTE | 2022-03-27 11:49 | MHC.CM.ED ---
Addendum entered by Zayda Nickerson 03/27/22 12:04: [facility] REFERRAL PLACED Original Note: PATIENT LIVES ALONE PREVIOUSLY HAD [facility] ORDERED, BUT PATIENT CLAIMS THAT THEY DID NOT SHOW UP. WHEN ASKED IF THE AGENCY CALLED, SHE AGREES BUT STATES I WAS CONFUSED ABOUT WHY THEY WERE COMING SHE DOES AGREE TO [facility] REFERRALS FOR HOME P.T. NEEDS. PATIENT USES NO DMR SHE WAS ACTIVE WITH [employer] FOR SUBOXONE BUT INDICATES THAT SHE NOW IS PRESCRIBED THIS THROUGH HER PCP OFFICE DAUGHTER DOUGLAS IS HCP COPY REQUESTED PER PATIENT, DAUGHTER VISITS EVERY WEEKEND TO OFFER HELP AROUND THE HOME
--- NOTE | 2022-03-27 12:39 | MHC.CM.PN ---
[facility] CAN OFFER WITH START OF CARE FRIDAY APRIL 01, 2022.
--- NOTE | 2022-03-27 13:25 | P.PNIM_ITS ---
Subjective Subjective Date of Service: 03/27/22 Physical Exam Vital Signs: Vital Signs: Last Vital Signs Temp 98.4 F 03/27/22 08:26 Pulse 93 03/27/22 08:27 Resp 17 03/27/22 08:26 BP 107/61 03/27/22 08:27 Pulse Ox 95 03/27/22 08:27 BMI result Body Mass Index 27.4 Objective Data Active Medications Acetaminophen (Acetaminophen 325 Mg Tablet) 650 mg PO Q6H PRN PRN Reason: Pain, Mild (Pain Scale 1-3) Last Admin: 03/27/22 10:43 Dose: 650 mg Documented by: JIAN Amitriptyline HCl (Amitriptyline Hcl 50 Mg Tablet) 150 mg PO BEDTIME [facility] Heparin Sodium (Porcine) (Heparin Sodium,Porcine 5,000 Unit/Ml Vial) 5,000 unit SUBCUT Q8H [facility] Last Admin: 03/27/22 06:06 Dose: 5,000 unit Documented by: ROCKY Hydroxyzine HCl (Hydroxyzine Hcl 25 Mg Tablet) 25 mg PO TID PRN PRN Reason: Anxiety Vancomycin HCl 1,000 mg/ (Sodium Chloride) 270 mls @ 270 mls/hr IV Q12H [facility] Last Infusion: 03/27/22 11:54 Dose: 270 mls/hr Documented by: JIAN Piperacillin Sod/Tazobactam (Sod 3.375 gm/ Sodium Chloride) 50 mls @ 100 mls/hr IV Q6H [facility] Last Admin: 03/27/22 12:02 Dose: 100 mls/hr Documented by: JIAN Melatonin (Melatonin 3 Mg Tablet) 6 mg PO BEDTIME PRN PRN Reason: Insomnia Omeprazole (Omeprazole 20 Mg Capsule.Dr) 20 mg PO DAILY@0630 [facility] Last Admin: 03/27/22 06:06 Dose: 20 mg Documented by: ROCKY Pharmacy Consult (Consult Rx Vancomycin Dosing) 1 each MISCELLANE DAILY PRN PRN Reason: Consult order Senna (Sennosides 8.6 Mg Tablet) 17.2 mg PO BEDTIME PRN PRN Reason: Constipation Sodium Chloride (0.9 % Sodium Chloride Flush 3 Ml Syringe) 3 ml IVFLUSH QSHIFT [facility] Last Admin: 03/27/22 08:25 Dose: 3 ml Documented by: HO.SCOC Trazodone HCl (Trazodone Hcl 100 Mg Tablet) 200 mg PO BEDTIME PRN PRN Reason: Sleep Labs CBC & Chem 7: 03/27/22 06:57 03/27/22 06:57 Labs: Laboratory Results - last 24 hr 03/26/22 03/26/22 03/26/22 21:52 21:52 22:23 MCV MCH MCHC RDW Plt Count MPV Immature Gran % (Auto) Neut % (Auto) Lymph % (Auto) [place] % (Auto) Eos % (Auto) Baso % (Auto) Lymph # (Auto) [place] # (Auto) Eos # (Auto) Baso # (Auto) Abs Immat Gran (auto) Absolute Neuts (auto) Absolute Nucleated RBC Nucleated RBC % (auto) Anion Gap Estim Creat Clear Calc Estimated GFR Random Glucose Calcium Vitamin B12 556 25-OH Vitamin D Total Folate 19.2 CSF Tube Number 1 4 CSF Volume 4.0 CSF Appearance CLEAR CSF Color COLORLESS CSF WBC 0 CSF RBC 3 CSF Neutrophils 0 CSF Lymphocytes 0 CSF Monocytes % 0 CSF Other Cells % 0 CSF Appearance (b) Clear, Colorless CSF Glucose 49 CSF Total Protein 25.8 COVID-19 (DEMARIO) COVID-[employer]isc[employer] 03/26/22 03/27/22 03/27/22 23:27 03:38 06:57 MCV 99.7 H MCH 33.6 H MCHC 33.8 RDW 12.8 Plt Count 231 MPV 9.3 L Immature Gran % (Auto) 0.3 Neut % (Auto) 55.5 Lymph % (Auto) 29.3 [place] % (Auto) 10.7 Eos % (Auto) 3.6 Baso % (Auto) 0.6 Lymph # (Auto) 1.9 [place] # (Auto) 0.7 Eos # (Auto) 0.2 Baso # (Auto) 0.0 Abs Immat Gran (auto) 0.02 Absolute Neuts (auto) 3.6 Absolute Nucleated RBC 0.000 Nucleated RBC % (auto) 0.0 Anion Gap Estim Creat Clear Calc Estimated GFR Random Glucose Calcium Vitamin B12 25-OH Vitamin D Total 7.0 Folate CSF Tube Number CSF Volume CSF Appearance CSF Color CSF WBC CSF RBC CSF Neutrophils CSF Lymphocytes CSF Monocytes % CSF Other Cells % CSF Appearance (b) CSF Glucose CSF Total Protein COVID-19 (DMEARIO) Negative COVID-19 [employer] See Note 03/27/22 06:57 MCV MCH MCHC RDW Plt Count MPV Immature Gran % (Auto) Neut % (Auto) Lymph % (Auto) [place] % (Auto) Eos % (Auto) Baso % (Auto) Lymph # (Auto) [place] # (Auto) Eos # (Auto) Baso # (Auto) Abs Immat Gran (auto) Absolute Neuts (auto) Absolute Nucleated RBC Nucleated RBC % (auto) Anion Gap 10 L Estim Creat Clear Calc 93.4 Estimated GFR > 60 Random Glucose 97 Calcium 8.8 Vitamin B12 25-OH Vitamin D Total Folate CSF Tube Number CSF Volume CSF Appearance CSF Color CSF WBC CSF RBC CSF Neutrophils CSF Lymphocytes CSF Monocytes % CSF Other Cells % CSF Appearance (b) CSF Glucose CSF Total Protein COVID-19 (DEMARIO) COVID-19 Clin Com Microbiology Microbiology Results: Microbiology 03/26/22 21:51 Gram Stain - Final Cerebrospinal Fluid CSF Examination - Final Fluid Description - Final CSF Culture - Preliminary Culture in progress. Assessment and Plan (1) Ataxia: Status: Acute (2) Injury of toe, left, superficial, infected: Status: Acute (3) Unable to ambulate: Status: Acute Plan 51-year-old female with a past medical history of alcohol abuse, alcoholic neuropathy, opiate abuse on Suboxone; currently sober; presented to the hospital today with a chief complaint of left lower extremity weakness/numbness/left grade 2 injury; Admitted for following Left lower extremity numbness/weakness: MRI showed chronic degenerative changes; no evidence of abscess.??moderate edema within the left paraspinal musculature from L2 to S2 with some heterogeneity suggestive of muscular strain/hematoma. CT head no acute finding, Neurology is recommending MRI to exclude demylinating disease Fall precautions PT/OT Status post LP- negative Left great toe injury/cellulitis:? Status post trauma.? Distal eschar-tissue on the tip of the great toe noted. Change Abx to PO Doxy ?? Hemopoietic/lymphoproliferative disorder: As noted on MRI with decreased marrow signaling.? will consult Heme-Onc for further recommendations ?? Osteopenia :? Will obtain vitamin-D levels History of opiate dependence:? Patient currently denies any opiate use.? Patient on Suboxone.? Addiction Medicine consult DVT prophylaxis:? Subcu heparin Code status:? Full code Inaptient need for stroke rule, HTN emergency with IV meds been give to control BP Quality Stroke Does the patient have a stroke diagnosis?: No VTE Prior VTE?: No VTE Risk Level:: Medical - moderate - high VTE Device Contraindication: Treatment Not Indicated VTE Drug Contraindication: N/A - Med Ordered
--- NOTE | 2022-03-27 14:46 | P.CONGS_ITS ---
History of Present Illness Consult details Consult date: 03/27/22 Narrative: 51-year-old female patient presenting to the emergency department with complaints of left lower extremity weakness and numbness and a previous history of alcohol abuse, alcohol neuropathy. She reports that await fell on her great toe on the left side several days ago and now has developed an eschar on the toe. Because of an underlying neuropathy she did not develop any pain. She has been admitted to the hospitalist team for management of the left-sided weakness. X-ray of the left foot revealed bilateral arthritic changes. Dorsal soft tissue swelling was noted over the left foot. No osseous destructive process is noted. Review of Systems Review of Systems: Yes Unobtainable due to mental status PMFSH Past Medical History Medical History delivery delivered Opioid abuse Family History Family History Father No family history of coronary artery disease Mother No family history of coronary artery disease Social History Social History Household Members: Children Housing: Apartment Do you presently have visiting nurse or other home services: No Alcohol intake: current Alcohol intake frequency: 3 or more drinks per day Patient Tobacco Use Status: Never used Tobacco Substance Use Type: Heroin service: No Current occupational status: employed Meds Allergies Allergy/AdvReac Type Severity Reaction Status Date / Time SEASONAL ALLERGIES Allergy Unknown SNEEZING, Uncoded 03/26/22 05:43 ITCHING Active Medications: Current Medications Acetaminophen (Acetaminophen 325 Mg Tablet) 650 mg PO Q6H PRN PRN Reason: Pain, Mild (Pain Scale 1-3) Last Admin: 03/27/22 10:43 Dose: 650 mg Documented by: Amitriptyline HCl (Amitriptyline Hcl 50 Mg Tablet) 150 mg PO BEDTIME MARYANNE Heparin Sodium (Porcine) (Heparin Sodium,Porcine 5,000 Unit/Ml Vial) 5,000 unit SUBCUT Q8H MARYANNE Last Admin: 03/27/22 06:06 Dose: 5,000 unit Documented by: Hydroxyzine HCl (Hydroxyzine Hcl 25 Mg Tablet) 25 mg PO TID PRN PRN Reason: Anxiety Vancomycin HCl 1,000 mg/ (Sodium Chloride) 270 mls @ 270 mls/hr IV Q12H [facility] Last Infusion: 03/27/22 14:11 Dose: Infused Documented by: Piperacillin Sod/Tazobactam (Sod 3.375 gm/ Sodium Chloride) 50 mls @ 100 mls/hr IV Q6H [facility] Last Admin: 03/27/22 12:02 Dose: 100 mls/hr Documented by: Melatonin (Melatonin 3 Mg Tablet) 6 mg PO BEDTIME PRN PRN Reason: Insomnia Omeprazole (Omeprazole 20 Mg Capsule.) 20 mg PO DAILY@0630 [facility] Last Admin: 03/27/22 06:06 Dose: 20 mg Documented by: Pharmacy Consult (Consult Rx Vancomycin Dosing) 1 each MISCELLANE DAILY PRN PRN Reason: Consult order Senna (Sennosides 8.6 Mg Tablet) 17.2 mg PO BEDTIME PRN PRN Reason: Constipation Sodium Chloride (0.9 % Sodium Chloride Flush 3 Ml Syringe) 3 ml IVFLUSH QSHIFT [facility] Last Admin: 03/27/22 08:25 Dose: 3 ml Documented by: Trazodone HCl (Trazodone Hcl 100 Mg Tablet) 200 mg PO BEDTIME PRN PRN Reason: Sleep Home Medications Medication Instructions Recorded Confirmed Last Taken Type amitriptyline 150 mg tablet 1 tab PO BEDTIME 03/26/22 03/26/22 03/25/22 History buprenorphine 8 mg-naloxone 2 mg 1 strip SUBLINGUAL BID 03/26/22 03/26/22 03/26/22 History sublingual film (Suboxone) hydroxyzine HCl 25 mg tablet 1 tab PO TID PRN 03/26/22 03/26/22 Unknown History trazodone 100 mg tablet 2 tab PO BEDTIME PRN 03/26/22 03/26/22 03/25/22 History Physical Exam Vital Signs: Vital Signs: Last Vital Signs Temp 98.4 F 03/27/22 08:26 Pulse 93 03/27/22 08:27 Resp 17 03/27/22 08:26 BP 107/61 03/27/22 08:27 Pulse Ox 95 03/27/22 08:27 BMI result Body Mass Index 27.4 Const: Other: Patient is sleeping, unarousable to voice, snoring deeply HEENT: Head: Yes normocephalic and Yes atraumatic Resp: Effort & Inspection: normal respiratory effort, no cough and no respiratory distress Cardio: Rate: regular rate Rhythm: regular rhythm Skin: Other: Warm, dry Extrem: Other: Left great toe with a dry eschar noted at the tip. No underlying abscess is appreciated. Ankle/foot/toe images: 1. Site of eschar left great toe Results Labs Result diagrams: 03/27/22 06:57 03/27/22 06:57 Labs: Abnormal lab results 03/27/22 03/27/22 Range/Units 06:57 06:57 RBC 3.18 L (4.20-5.50) X10*6/uL Hgb 10.7 L (12.0-16.0) g/dl Hct 31.7 L (37.0-47.0) % MCV 99.7 H (80.0-98.0) fL MCH 33.6 H (27.0-33.0) pg MPV 9.3 L (9.4-12.3) fL Anion Gap 10 L (12-20) Short CBC 03/27/22 Range/Units 06:57 WBC 6.4 (4.8-10.8) X10*3/uL Hgb 10.7 L (12.0-16.0) g/dl Hct 31.7 L (37.0-47.0) % Plt Count 231 (160-400) X10*3/uL BMP 03/27/22 06:57 Sodium 140 Potassium 4.1 Chloride 106 Carbon Dioxide 28 BUN 9 Creatinine 0.68 Calcium 8.8 All other labs normal. Assessment and Plan (1) Injury of toe, left, superficial, infected: Status: Acute Plan Superficial ulceration/eschar with surrounding cellulitis involving the left great toe after a heavy object fell on her toe. No fractures appreciated on x- ray. Patient currently on IV antibiotics (Zosyn). Patient may require debridement if no improvement with antibiotics. Continue to monitor. Procedures Date of Service Date of Service: 03/27/22
--- NOTE | 2022-03-27 14:52 | MHC.RECOVRN ---
Met with pt this morning in [facility] after consult placed to Addiction Medicine for pt being prescribed Suboxone. Per TahirT, pts last script was 03/13 for 8 days. Upon entering pts room, pt awake in bed, easily engages in conversation. Pt reports using heroin, a couple bags, IV, last use 10-12 days ago. Pt reports recently applying a fentanyl patch and states I only left it on for an hour because I got scared. Pt is not currently experiencing withdrawal and declines Suboxone while in the hospital. Pt reports having a full script at home and will resume once discharged. Pt denies questions or concerns for t/w. Discussed with Shelia Wilde APRN.
[2022-03-27 16:00] VITALS: BP 120/63; PULSE 97; RESP 18; TEMP 36.5; O2SAT 97
[2022-03-27 19:19] VITALS: BP 119/85; PULSE 109; RESP 18; TEMP 36.4; O2SAT 97
[2022-03-27] MEDS: Amitriptyline HCl 50 MG TABLET 150 MG PO (21:22)
[2022-03-28 03:40] VITALS: BP 108/65; PULSE 82; RESP 18; TEMP 36.2; O2SAT 96
[2022-03-28] MEDS: Piperacillin Sodium/Tazobactam 3.375 GM in 0.9 % Sodium Chloride 50 ML IV (04:20)
[2022-03-28] MEDS: Omeprazole 20 MG CAPSULE.DR PO (06:28)
[2022-03-28] MEDS: Heparin Sodium,Porcine 5,000 UNIT/ML VIAL 5000 UNIT SUBCUT (06:28)
[2022-03-28 07:02] LABS: Creatinine Clr Calc Pharmacy 104.1; Estimated Glomerular Filt Rate > 60
[2022-03-28 08:00] VITALS: BP 102/61; PULSE 80; RESP 18; TEMP 36.8
[2022-03-28] MEDS: 0.9 % Sodium Chloride Flush 3 ML SYRINGE IVFLUSH (10:26)
[2022-03-28] MEDS: Acetaminophen 325 MG TABLET 650 MG PO (12:05)
[2022-03-28 12:39] VITALS: BP 140/83; PULSE 90; RESP 18; TEMP 36.9; O2SAT 98
--- NOTE | 2022-03-28 14:06 | P.DS_ITS ---
DS: Providers Provider Date of Service: 03/28/22 Date of admission: 03/26/22 22:27 Primary care physician: Alice Martinez MD Consults: 03/26/22 22:28 Consult to Neurology Routine Consulting Provider: [facility] Reason for consultation: LLE weakness/Numbness 03/26/22 22:32 Addiction Medicine Routine Consulting Provider: Shelia Wilde Reason for consultation: Patient on Suboxone 03/26/22 22:37 Consult to General Surgery Routine Consulting Provider: Haroon Rowe Reason for consultation: Left great toe injury, question dry gangrene 03/26/22 22:51 Consult to Hematology / Oncology Routine Consulting Provider: Rachael Novoa Reason for consultation: ? Lymphoproliferative disorder-per MRI L-spine result DS: Diagnosis Discharge Diagnosis (1) Injury of toe, left, superficial, infected: Status: Acute DS: Summary Hospital Course Hospital Course: Chief Complaint: Left lower extremity weakness/numbness 51-year-old female with a past medical history of alcohol abuse, alcoholic neuropathy, opiate abuse on Suboxone; currently sober; presented to the hospital today with a chief complaint of left lower extremity weakness/numbness.? Patient reports that couple days ago she had of weight fall on her great toe, later that night she noted dark tissue, redness of her great toe on the left side.? Mentions she did not feel any pain because she has longstanding history of neuropathy in bilateral feet and has been following with Neurology.? Patient reports that yesterday morning when she woke up she was not able to use her left lower extremity and fell from the bed onto the floor; Also mentions she has been noted numbness in her left leg; reports he has tingling sensation bilateral fluids attributes to her neuropathy.? Denies any low back pain.? Denies any falls or injury Denies any recent IV drug abuse; denies any fever chills; Patient reports that she has to drag her left lower extremity; Denies any chest pain or palpitations Review of all other systems is negative except mentioned above ER course: Per ER team patient noted to have significant weakness in her left lower extremity, absent patellar reflexes on the left lower extremity; strength 1/5 on the left lower extremity; MRI of the L-spine was done which showed no acute findings but noted chronic degenerative changes; LP was done-results pending; patient was given empiric antibiotics for left great toe infection after injury.? Admitted for further management Hospital Course: Left lower extremity numbness/weakness: MRI showed chronic degenerative changes; no evidence of abscess.??moderate edema within the left paraspinal musculature from L2 to S2 with some heterogeneity suggestive of muscular strain/hematoma. CT head no acute finding, Neurology recommended MRI to exclude demylinating disease--these are the findings: Questionable punctate white matter infarct involving the left external capsule. Otherwise no evidence of acute territorial infarct. A few scattered chronic small vessel ischemic changes are visualized within the periventricular white matter. No acute intracranial mass effect, hemorrhage, or hydrocephalus.? She is doing much better. Physical therapy saw her and recommending home PT, there is concern that alcohol maybe playing big role in this. She is ambulating with walker and think she can go back to work next week Left great toe injury/cellulitis:? Status post trauma.? Distal eschar-tissue on the tip of the great toe noted. Change Abx to PO Doxy and follow up with PCP ?? Hemopoietic/lymphoproliferative disorder: As noted on MRI with decreased marrow signaling.? will consult Heme-Onc for further recommendations --?? Osteopenia :? Will obtain vitamin-D levels Outpatient Heme/onc eval Time Spent with Patient Time attestation: Total time spent providing and/or coordinating discharge services: Discharge coordination time: Greater than 30 minutes Quality: Safe Use of Opioids Does Pt have an Active Cancer Diagnosis on the Problem List?: No Quality: Stroke Does the patient have a stroke diagnosis?: No Physical Exam Vital Signs: Vital Signs: Last Vital Signs Temp 98.5 F 03/28/22 12:39 Pulse 90 03/28/22 12:39 Resp 18 03/28/22 12:39 BP 140/83 H 03/28/22 12:39 Pulse Ox 98 03/28/22 12:39 BMI result Body Mass Index 27.4 DS: Data Data Completed and Pending Labs on day of discharge: Laboratory Results - last 24 hr 03/28/22 06:18 Creatinine 0.61 Estim Creat Clear Calc 104.1 Estimated GFR > 60 Preliminary micro results at discharge 03/26/22 21:51 CSF Culture - Preliminary Cerebrospinal Fluid No growth after 1 day 03/26/22 23:28 Blood Culture - Preliminary Blood - Venous No growth after 24 hours. 03/26/22 23:27 Blood Culture - Preliminary Blood - Venous No growth after 24 hours. Discharge Plan Discharge Anticipated Discharge Date/Time: 03/27/22 10:53 Patient Disposition: Home Health Service Discharge Diagnosis: weakness in legs Referrals: Alice Martinez MD [Primary Care Provider] - 1 Week Rachael Novoa MD [Physician] - 1 Week (eval for ? hemapoetic desorder) Discharge Medications: New (DME) Ultra-Light Rollator Misc See Rx Instructions .Route Qty: 1 0RF Rx Instructions: As directed doxycycline hyclate 100 mg Tablet 100 mg PO BID Qty: 14 0RF Continued pantoprazole [Protonix] 40 mg tablet,delayed release (DR/EC) 40 mg PO DAILY Qty: 30 0RF amitriptyline 150 mg tablet 1 tab PO BEDTIME 0RF trazodone 100 mg tablet 2 tab PO BEDTIME PRN (Reason: Sleep) 0RF hydroxyzine HCl 25 mg tablet 1 tab PO TID PRN (Reason: Anxiety) 0RF buprenorphine-naloxone [Suboxone] 8-2 mg film 1 strip sublingual BID 0RF Discharge Orders: Discharge Order (Routine); Ordered 03/28/22 Ordered By: Red Degroot Diet: advance to usual diet Activity on Discharge: As tolerated Stand Alone Forms: Patient Portal Discharge page Care Plan Goals: Improve gait and weakness Health Concerns: Ataxia and weakness Plan of Treatment: Outpatient Physical therapy, use a walker to ambulate Assessment: As above
--- NOTE | 2022-03-28 14:28 | MHC.CM.PN ---
PATIENT IS DC TO HOME WITH [facility] FOR HOME P.T. START OF CARE WednesdayApril.
--- NOTE | 2022-03-28 14:43 | P.F2F_ITS ---
Service Date Service Date: 03/28/22 Encounter Date of encounter: 03/28/22 Reasons for Services Signs and symptoms assessed: weakness and unsteady gait Homebound: Leaving the home is medically contraindicated at this time without the asist of a device and/or another person due th the listed conditions above and below. Reason homebound: unsteady gait / fall risk Homebound supporting statement: homebound due to weakness and unsteady gait.. Certification: Based on the above findings, I certify that this patient is confined to the home and needs intermittent group home care, physical therapy and/or speech therapy, or continues to need occupational therapy. The patient is under my care, and I have initiated the establishment of the plan of care. The patient will be followed by a physician who will periodically review the plan of care.
[2022-04-10 10:44] LABS: Total Protein, CSF 28
[2022-04-10 10:45] LABS: Albumin, CSF 56.4; Alpha-1-Globulin,CSF 7.2; Prealbumin, CSF 5.2
[2022-04-10 10:46] LABS: Alpha-2-Globulin,CSF 7.4; Beta Globulin, CSF 17.4; Gamma Globulin 6.4
== END 2022-03-28 20:14 | disposition home health service (06) | DRG 383 ==
LOC: HO.ED 16:03 → HO.EDOVER 22:34
PROVIDERS: Emergency Medicine; Admitting Provider Hospitalist; Emergency Provider Emergency Medicine; PCP Family Medicine; Visit Provider Internal Medicine
DX: L03.032 Cellulitis of left toe (principal); G62.1 Alcoholic polyneuropathy; F10.21 Alcohol dependence, in remission; F11.20 Opioid dependence, uncomplicated; M85.80 Other specified disorders of bone density and structure, unspecified site; Z20.822 Contact with and (suspected) exposure to COVID-19; Z79.899 Other long term (current) drug therapy
CPT/HCPCS: 36415; 70450; 70551; 72148; 73600; 73660; 80048; 80053; 82306; 82565; 82607; 82746; 82945; 83880; 84157; 84166; 85025; 87015; 87040; 87070; 87205; 87635; 89051; 93971; 97162; 99218; 99284; 99285; J2543; J3370

== ENCOUNTER 2022-08-04 15:50 | Emergency (ER) | payer MEDICAID, SELFPAY ==
--- NOTE | ~2022-08-04 | XR_ITS ---
EXAMINATION: XR RIBS, RIGHT CLINICAL INFORMATION: Fall. COMPARISON: None TECHNIQUE: Frontal view of chest 3 views of the right ribs were obtained. FINDINGS: Lungs are clear. No consolidation, pneumothorax, or pleural effusion. The cardiomediastinal silhouette and pulmonary vasculature are normal. There are mildly displaced fractures of the anterior lateral right third, fourth and fifth ribs XR/XR ribs RT min 3V w CXR1V IMPRESSION: Fracture of the right third through fifth ribs. No pneumothorax or pleural effusion.
--- NOTE | ~2022-08-04 | CT_ITS ---
EXAMINATION: CT head/brain wo IV con CLINICAL INFORMATION: Reason for Exam fall, ? syncope, unknown LOC/headstrike COMPARISON: CT head without contrast 03/26/2022 TECHNIQUE: Contiguous axial imaging was performed from the skull base to vertex without intravenous contrast. Sagittal and coronal reformatted images were obtained. This CT examination was performed using dose optimization techniques as appropriate, variously including the following: * Automated exposure control * Adjustment of mA and/or kV according to patient size (this includes techniques or standardized protocols for targeted exams where dose is matched to indication/reason for exam; i.e. extremities or head) Use of iterative reconstruction technique DLP: 569 mGy-cm FINDINGS: No acute osseous or soft tissue abnormality. The mastoid air cells and visualized portions of the paranasal sinuses are well aerated. There is no evidence of acute intracranial hemorrhage or territorial infarction. No abnormal mass effect or midline shift is seen. Gonsalves to white matter differentiation is well preserved. No extra-axial fluid collections are identified. No hydrocephalus. No significant volume loss. There is no abnormal attenuation within the brain parenchyma. CT/CT head/brain wo IV con IMPRESSION: No acute intracranial abnormality including hemorrhage, mass effect, hydrocephalus, or acute territorial edematous infarction.
[2022-08-04 16:56] VITALS: BP 138/89; BP 144/80; PULSE 92; PULSE 95; RESP 18; TEMP 36.5; O2SAT 95; O2SAT 98; BMI 26.6
[2022-08-04] MEDS: Ibuprofen 600 MG TABLET PO (17:05)
--- NOTE | 2022-08-04 19:55 | ED.FALL ---
HPI - Fall General Chief Complaint: Fall Stated Complaint: rt rib pain/fall on wednesday Time Seen by Provider: 08/04/22 19:35 Source: patient Mode of arrival: ambulatory Limitations: no limitations History of Present Illness HPI Narrative: Patient presents to the emergency department for evaluation of right-sided chest pain. She reports that 3 days ago at approximately 0200 she woke on the bathroom floor. Believes that she may have fallen. But is uncertain of the circumstances surrounding the fall. Does not recall the fall. Denies alcohol usage or drug usage. She does report that when she woke she had the right-sided chest pain. Pain is made worse with any movement, or deep inspiration. Denies any fever, chills, dizziness, lightheadedness, vision changes, headache, neck pain, neck stiffness, palpitations, difficulty breathing, nausea, vomiting, abdominal pain, numbness or tingling to the extremities, weakness. Related Data Home Medications Medication Instructions Recorded Confirmed amitriptyline 150 mg tablet 1 tab PO BEDTIME 03/26/22 03/26/22 buprenorphine 8 mg-naloxone 2 mg 1 strip sublingual BID 03/26/22 03/26/22 sublingual film (Suboxone) hydroxyzine HCl 25 mg tablet 1 tab PO TID PRN Anxiety 03/26/22 03/26/22 trazodone 100 mg tablet 2 tab PO BEDTIME PRN Sleep 03/26/22 03/26/22 Previous Rx's Medication Instructions Recorded pantoprazole 40 mg tablet,delayed 40 mg PO DAILY #30 tabs 01/17/22 release (Protonix) doxycycline hyclate 100 mg tablet 100 mg PO BID #14 tabs 03/28/22 walker (Ultra-Light Rollator misc) #1 ea 03/28/22 cefuroxime axetil 250 mg tablet 250 mg PO Q12H 5 days #10 tabs 08/04/22 Allergies Allergy/AdvReac Type Severity Reaction Status Date / Time Seasonal Allergies Allergy Mild Itchy Eyes Verified 08/04/22 17:04 Review of Systems Review of Systems: Constitutional: No weight loss, fever, chills, weakness or fatigue. Skin: No rash or itching. Cardiovascular: Positive chest pain No palpitations or pedal edema. Respiratory: No shortness of breath, cough or sputum production. Gastrointestinal: No anorexia, nausea, vomiting or diarrhea. No abdominal pain or blood in stool. Genitourinary: No burning micturition. No urinary frequency or incontinence. Musculoskeletal: No muscle pain, back pain, joint pain or stiffness. Psychiatric: No depression or anxiety. Yes all other systems are reviewed and are negative [facility] [place] Past Medical History Attestation statement: The following information was validated with the patient. Source: old records reviewed Medical History delivery delivered Opioid abuse Family History Family History Father No family history of coronary artery disease Mother No family history of coronary artery disease Social History Social History Household Members: Children Housing: Apartment Do you presently have visiting nurse or other home services: No Alcohol intake: current Alcohol intake frequency: 3 or more drinks per day Patient Tobacco Use Status: Never used Tobacco Substance Use Type: Heroin Advance Directives: No Advance Directives Information Provided: No service: No Current occupational status: employed Physical Exam Vital Signs: Vital Signs: Last Vital Signs Temp 97.7 F 08/04/22 16:56 Pulse 95 08/04/22 20:34 Resp 18 08/04/22 20:34 BP 124/81 08/04/22 20:34 Pulse Ox 97 08/04/22 20:34 O2 Del Method 08/04/22 20:34 BMI result Body Mass Index 26.6 Vital signs have been reviewed as normal and appeared to be correct. Blood pressure normal.? Heart rate normal.? Respiration rate normal. Temperature normal.? Oxygen saturation normal. Appearance: Alert.?Oriented to person, place and time. No acute distress.?Normal affect. Eyes: Pupils equal, round and reactive to light.? ENT: Pharynx normal.?? Neck: Normal inspection.? Neck supple.?? CVS: Heart sounds normal. Normal heart rate and rhythm.? Pulses normal.?? Respiratory: No respiratory distress.? Lung sounds clear to auscultation bilaterally. Bruising over the right 5th rib, no crepitus, or obvious deformity. Tenderness upon palpation. Abdomen: Soft and non-tender. Normoactive bowel sounds. Skin: Skin warm and dry.? Normal skin color.? Extremities: No lower extremity edema.? No calf ttp? Neuro: Moves all extremities spontaneously. Sensation intact bilaterally. CN II-XII intact. No focal neuro deficits. Ambulates with normal steady gait. Course Course Course Narrative: Patient is a 51-year-old female with a past medical history of alcohol abuse, cirrhosis, opiate abuse. She presents emergency department for evaluation of right sided chest wall pain after a fall 4 days ago of unknown etiology. She has no focal neurological deficits, is ambulatory with a steady gait, alert and oriented x4. Patient is in no respiratory distress, lung sounds are clear bilaterally. Upon physical exam there is bruising to the anterior lateral chest wall along the 5th right rib, with palpable tenderness, no crepitus or obvious deformity. XR reveals mildly displaced anterior lateral fracture to the right 3rd 4th and 5th rib. Patient does have a history of opiate abuse, denies any recent drug usage, was previously using heroin. She states that she has been on Suboxone for approximately 9 years, however over the past 2 weeks she has not received any Suboxone as she has been trying to wean off of the medication. Patient received ibuprofen already in triage, did not alleviate pain, would not be a candidate for Toradol at this time. Discussed with patient the potential dangers of using opiate pain medication, and potential for causing cravings and relapse in the future. Patient would like to trial oxycodone at this time. Given etiology of fall is uncertain, will obtain basic labs, EKG, troponin, urinalysis, CT of the head. Disposition pending results. Reevaluation(s) Reevaluation #1: CBC reveals a mild leukocytosis at 13.4, which may be reactive due to inflammatory reaction with fall and rib fractures. CMP is overall unremarkable. Potassium is slightly decreased at 3.2, will replace with 40 mEq is orally, advised patient will require outpatient follow-up with primary care provider to assure that this has normalized. Troponin <3.5. EKG reveals normal sinus rhythm, however does have prolonged QTC at 503 which has been noted on prior EKGs as well, no acute ischemic findings, does not appear consistent with ACS at this time. COVID-19 testing is negative. GENTILE is positive for amphetamines and fentanyl, ethanol level is nondetectable. CT of the head reveals no acute intracranial abnormalities, no suggestion of a cause for recent fall. Urinalysis appears consistent with urinary tract infection, presence of leukocyte esterase, trace bacteria in urine nitrites, patient vaguely reports your your frequency but this is particularly at night, will cover with a course of antibiotics. D-dimer is elevated at 550, recommended the patient have CT angio of the chest to evaluate for pulmonary embolism, patient declined to have this performed stating that she needs to leave at this time. Discussed the possible complications of untreated pulmonary embolism which includes , patient verbalized understanding, but states she is unable to state have this test performed. Advised outpatient follow-up with her primary care provider within 1-2 days for further follow-up and evaluation, and also to have potassium level repeated. Reviewed the use of incentive spirometer, bracing for pain due to rib fractures, acetaminophen/ibuprofen as needed for pain, worrisome signs symptoms that she should return back to the emergency department for. Questions were answered, patient left against medical advice, verbalizes understanding of this. Time: 22:42 MDM - Fall Medical Records Attestation: I reviewed the patient's medical records. Lab Data Attestation: I reviewed the patient's lab results. Result diagrams: 08/04/22 20:50 08/04/22 20:50 Labs: Lab Results 08/04/22 08/04/22 08/04/22 Range/Units 20:50 20:50 20:50 WBC 13.4 H (4.8-10.8) X10*3/uL RBC 4.29 D (4.20-5.50) X10*6/uL Hgb 13.4 D (12.0-16.0) g/dl Hct 39.2 D (37.0-47.0) % MCV 91.4 (80.0-98.0) fL MCH 31.2 (27.0-33.0) pg MCHC 34.2 (31.0-35.0) g/dl RDW 13.1 (11.0-16.0) % Plt Count 221 (160-400) X10*3/uL MPV 10.1 (9.4-12.3) fL Immature Gran % (Auto) 0.4 (0.0-0.4) % Neut % (Auto) 77.2 H (45-73) % Lymph % (Auto) 14.2 L (20-40) % Schuyler % (Auto) 7.0 (2-11) % Eos % (Auto) 0.8 (0-4) % Baso % (Auto) 0.4 (0-2) % Lymph # (Auto) 1.9 (1.2-4.9) X10*3/uL Schuyler # (Auto) 0.9 (0.1-1.2) X10*3/uL Eos # (Auto) 0.1 (0.0-0.4) X10*3/uL Baso # (Auto) 0.1 (0.0-0.2) X10*3/uL Abs Immat Gran (auto) 0.05 H (0.00-0.03) X10*3/uL Absolute Neuts (auto) 10.3 H (2.0-8.3) x10*3/uL Absolute Nucleated RBC 0.000 (0.0-0.012) X10*3/uL Nucleated RBC % (auto) 0.0 (0.0-0.2) /100WBC D-Dimer High Sensitivty NG/ML Sodium 136 (135-145) mmol/L Potassium 3.2 L D (3.3-5.1) mmol/L Chloride 97 (96-108) mmol/L Carbon Dioxide 24 (22-29) mmol/L Anion Gap 18 (12-20) BUN 9 (9-16) mg/dL Creatinine 0.64 (0.5-1.4) mg/dL Estim Creat Clear Calc 97.8 Estimated GFR > 60 Random Glucose 102 (60-115) mg/dL Calcium 9.5 D (8.4-10.2) mg/dL Magnesium 1.7 (1.6-2.6) mg/dL Total Bilirubin 1.0 (0.0-1.0) mg/dL AST 22 D (5-31) U/L ALT 20 (0-31) U/L Alkaline Phosphatase 94 (39-117) U/L Troponin I High Sens < 3.5 (<3.5-17.0) ng/L Total Protein 6.9 (6.5-8.0) g/dL Albumin 4.0 D (3.5-5.0) g/dL Urine Color Urine Appearance Urine pH (5.0-9.0) Ur Specific [place] (1.005-1.025) Urine Protein (Neg-Trace) mg/dL Urine Glucose (UA) (Negative) mg/dL Urine Ketones (Negative) mg/dL Urine Blood (Negative) Urine Nitrite (Negative) Ur Leukocyte Esterase (Negative) Urine RBC (0-2) /HPF Urine WBC (0-5) /HPF Ur Squamous Epith Cells (0-2) /HPF Urine Bacteria (None Seen) Hyaline Casts (0-2) /LPF Urine Opiates Screen (Not Detect) Urine Fentanyl Screen (Not Detect) Ur Barbiturates Screen (Not Detect) Ur Phencyclidine Scrn (Not Detect) Ur Amphetamines Screen (Not Detect) U Benzodiazepines Scrn (Not Detect) Urine Cocaine Screen (Not Detect) U Marijuana (THC) Screen (Not Detect) Ethyl Alcohol < 10 mg/dL COVID-19 (DEMARIO) (Negative) COVID-19 Clin Com 08/04/22 08/04/22 08/04/22 Range/Units 20:50 20:50 21:34 WBC (4.8-10.8) X10*3/uL RBC (4.20-5.50) X10*6/uL Hgb (12.0-16.0) g/dl Hct (37.0-47.0) % MCV (80.0-98.0) fL MCH (27.0-33.0) pg MCHC (31.0-35.0) g/dl RDW (11.0-16.0) % Plt Count (160-400) X10*3/uL MPV (9.4-12.3) fL Immature Gran % (Auto) (0.0-0.4) % Neut % (Auto) (45-73) % Lymph % (Auto) (20-40) % Schuyler % (Auto) (2-11) % Eos % (Auto) (0-4) % Baso % (Auto) (0-2) % Lymph # (Auto) (1.2-4.9) X10*3/uL Schuyler # (Auto) (0.1-1.2) X10*3/uL Eos # (Auto) (0.0-0.4) X10*3/uL Baso # (Auto) (0.0-0.2) X10*3/uL Abs Immat Gran (auto) (0.00-0.03) X10*3/uL Absolute Neuts (auto) (2.0-8.3) x10*3/uL Absolute Nucleated RBC (0.0-0.012) X10*3/uL Nucleated RBC % (auto) (0.0-0.2) /100WBC D-Dimer High Sensitivty 550 NG/ML Sodium (135-145) mmol/L Potassium (3.3-5.1) mmol/L Chloride (96-108) mmol/L Carbon Dioxide (22-29) mmol/L Anion Gap (12-20) BUN (9-16) mg/dL Creatinine (0.5-1.4) mg/dL Estim Creat Clear Calc Estimated GFR Random Glucose (60-115) mg/dL Calcium (8.4-10.2) mg/dL Magnesium (1.6-2.6) mg/dL Total Bilirubin (0.0-1.0) mg/dL AST (5-31) U/L ALT (0-31) U/L Alkaline Phosphatase (39-117) U/L Troponin I High Sens (<3.5-17.0) ng/L Total Protein (6.5-8.0) g/dL Albumin (3.5-5.0) g/dL Urine Color Dark Yellow Urine Appearance Clear Urine pH 5.5 (5.0-9.0) Ur Specific [place] >= 1.030 H (1.005-1.025) Urine Protein 30 (1+) H (Neg-Trace) mg/dL Urine Glucose (UA) Negative (Negative) mg/dL Urine Ketones Trace (Negative) mg/dL Urine Blood Negative (Negative) Urine Nitrite Positive H (Negative) Ur Leukocyte Esterase Small (1+) H (Negative) Urine RBC 3-5 H (0-2) /HPF Urine WBC 0-5 (0-5) /HPF Ur Squamous Epith Cells 6-10 (0-2) /HPF Urine Bacteria Trace (None Seen) Hyaline Casts 0-2 (0-2) /LPF Urine Opiates Screen (Not Detect) Urine Fentanyl Screen (Not Detect) Ur Barbiturates Screen (Not Detect) Ur Phencyclidine Scrn (Not Detect) Ur Amphetamines Screen (Not Detect) U Benzodiazepines Scrn (Not Detect) Urine Cocaine Screen (Not Detect) U Marijuana (THC) Screen (Not Detect) Ethyl Alcohol mg/dL COVID-19 (DEMARIO) Negative (Negative) COVID-19 Clin Com See Note 08/04/22 Range/Units 21:34 WBC (4.8-10.8) X10*3/uL RBC (4.20-5.50) X10*6/uL Hgb (12.0-16.0) g/dl Hct (37.0-47.0) % MCV (80.0-98.0) fL MCH (27.0-33.0) pg MCHC (31.0-35.0) g/dl RDW (11.0-16.0) % Plt Count (160-400) X10*3/uL MPV (9.4-12.3) fL Immature Gran % (Auto) (0.0-0.4) % Neut % (Auto) (45-73) % Lymph % (Auto) (20-40) % Schuyler % (Auto) (2-11) % Eos % (Auto) (0-4) % Baso % (Auto) (0-2) % Lymph # (Auto) (1.2-4.9) X10*3/uL [place] # (Auto) (0.1-1.2) X10*3/uL Eos # (Auto) (0.0-0.4) X10*3/uL Baso # (Auto) (0.0-0.2) X10*3/uL Abs Immat Gran (auto) (0.00-0.03) X10*3/uL Absolute Neuts (auto) (2.0-8.3) x10*3/uL Absolute Nucleated RBC (0.0-0.012) X10*3/uL Nucleated RBC % (auto) (0.0-0.2) /100WBC D-Dimer High Sensitivty NG/ML Sodium (135-145) mmol/L Potassium (3.3-5.1) mmol/L Chloride (96-108) mmol/L Carbon Dioxide (22-29) mmol/L Anion Gap (12-20) BUN (9-16) mg/dL Creatinine (0.5-1.4) mg/dL Estim Creat Clear Calc Estimated GFR Random Glucose (60-115) mg/dL Calcium (8.4-10.2) mg/dL Magnesium (1.6-2.6) mg/dL Total Bilirubin (0.0-1.0) mg/dL AST (5-31) U/L ALT (0-31) U/L Alkaline Phosphatase (39-117) U/L Troponin I High Sens (<3.5-17.0) ng/L Total Protein (6.5-8.0) g/dL Albumin (3.5-5.0) g/dL Urine Color Urine Appearance Urine pH (5.0-9.0) Ur Specific [place] (1.005-1.025) Urine Protein (Neg-Trace) mg/dL Urine Glucose (UA) (Negative) mg/dL Urine Ketones (Negative) mg/dL Urine Blood (Negative) Urine Nitrite (Negative) Ur Leukocyte Esterase (Negative) Urine RBC (0-2) /HPF Urine WBC (0-5) /HPF Ur Squamous Epith Cells (0-2) /HPF Urine Bacteria (None Seen) Hyaline Casts (0-2) /LPF Urine Opiates Screen Not Detected (Not Detect) Urine Fentanyl Screen POSITIVE H (Not Detect) Ur Barbiturates Screen Not Detected (Not Detect) Ur Phencyclidine Scrn Not Detected (Not Detect) Ur Amphetamines Screen POSITIVE H (Not Detect) U Benzodiazepines Scrn Not Detected (Not Detect) Urine Cocaine Screen Not Detected (Not Detect) U Marijuana (THC) Screen Not Detected (Not Detect) Ethyl Alcohol mg/dL COVID-19 (DEMARIO) (Negative) COVID-19 Clin Com Imaging Data Chest x-ray: Radiologist's impression: XR/XR ribs RT min 3V w CXR1V IMPRESSION: Fracture of the right third through fifth ribs. No pneumothorax or pleural effusion. CT scan - head: Radiologist's impression: CT/CT head/brain wo IV con IMPRESSION: ? No acute intracranial abnormality including hemorrhage, mass effect, hydrocephalus, or acute territorial edematous infarction. ECG Data Attestation: I personally reviewed and interpreted this ECG as follows: ECG interpretation date: 08/04/22 Interpretation: Rate: 89 Rhythm:? Normal sinus rhythm Normal P waves.? Normal NIKOLE.?? Normal QRS complex.?? ST T wave :??No ST elevation, no ST depression qTC: Prolonged, 503 prior studies:? June 2021 The study has been interpreted contemporaneously by me. Discharge Plan Discharge Clinical Impression: Multiple fractures of ribs of right side, Acute hypokalemia, Urinary tract infection, Elevated d-dimer, Left against medical advice Patient Disposition: Left Against Medical Advice Instructions: Urinary Tract Infection in Women (ED), Rib Fracture (ED), Hypokalemia (ED), Against Medical Advice (ED) Additional Instructions: You were found to have fractures to your right 3rd, 4th, and 5th rib. These will take time to heal and can be very painful. You can take ibuprofen 200 mg, 3 tablets (600mg) every 6-8 hours as needed for pain, in addition to Tylenol 500 mg, 2 tablets (1,000mg) every 4-6 hours as needed for pain, but not to exceed 3 doses daily (3,000mg).? Be sure to use a pillow to brace your right side if you are coughing or moving as this may help in decreasing the pain. Please use incentive spirometer as instructed. Your potassium level was slightly low while in the emergency department, it was replaced with an oral supplement. You should contact your primary care provider to have your potassium level repeated. The urine sample you provided is concerning for urinary tract infection you have been given a prescription for an antibiotic to take twice daily for 5 days. Please complete this entire course. As you mentioned, the exact cause of your fall is unknown. We did an extensive workup while you were in the emergency department to identify potential causes for the fall. Your D-dimer level was elevated it was recommended that you stay and have a CT of your chest obtained to evaluate for a blood clot within the lungs. However you declined to have this performed. A blood clot in the lungs left untreated can lead to serious complications including . You verbalized understanding of this and still decided to leave against medical advice. Please contact your primary care provider in arrange for a follow-up visit within 1-2 days. You may always return to the emergency department with any new or significantly worsening symptoms or concerns such as dizziness, lightheadedness, passing out, chest pain, palpitations, shortness of breath, difficulty breathing, numbness or tingling to extremities, weakness. Prescriptions: New cefuroxime axetil 250 mg tablet 250 mg PO Q12H 5 Days Qty: 10 0RF No Action pantoprazole [Protonix] 40 mg tablet,delayed release (DR/EC) 40 mg PO DAILY Qty: 30 0RF amitriptyline 150 mg tablet 1 tab PO BEDTIME trazodone 100 mg tablet 2 tab PO BEDTIME PRN (Reason: Sleep) hydroxyzine HCl 25 mg tablet 1 tab PO TID PRN (Reason: Anxiety) buprenorphine-naloxone [Suboxone] 8-2 mg film 1 strip sublingual BID doxycycline hyclate 100 mg Tablet 100 mg PO BID Qty: 14 0RF (DME) Ultra-Light Rollator Misc See Rx Instructions .Route Qty: 1 0RF Rx Instructions: As directed Stand Alone Forms: Against Medical Advice Interventions: ED Discharge Assessment Last Done: 08/04/22 22:53 Discharge Date/Time: 08/04/22 22:55
--- NOTE | 2022-08-04 20:10 | ECG_ITS ---
Test Reason : FALL Blood Pressure : / mmHG Vent. Rate : 089 BPM Atrial Rate : 089 BPM P-R Int : 178 ms QRS Dur : 100 ms QT Int : 414 ms P-R-T Axes : 015 -11 024 degrees QTc Int : 503 ms Normal sinus rhythm Minimal voltage criteria for LVH, may be normal variant ( Martínez product ) Prolonged QT Nonspecific T wave abnormality Abnormal ECG When compared with ECG of 12-JUN-2021 23:04, Nonspecific T wave abnormality now evident in Anterior leads Heart rate has decreased Referred By: Elizabeth Gao Electronically Signed By:GARRETT MOTA
[2022-08-04 20:34] VITALS: BP 124/81; PULSE 95; RESP 18; O2SAT 97
[2022-08-04] MEDS: oxyCODONE HCl Immed Release 5 MG TABLET PO (20:36)
[2022-08-04 20:57] LABS: MANUAL DIFF FLAG NO
[2022-08-04 21:00] LABS: Basophils Absolute Auto 0.1 X10*3/uL (0.0-0.2); Basophils Percent Auto 0.4 % (0-2); Eosinophils Absolute Auto 0.1 X10*3/uL (0.0-0.4); Eosinophils Percent Auto 0.8 % (0-4); Hematocrit 39.2 % (37.0-47.0); Hemoglobin 13.4 g/dl (12.0-16.0); Imm Gran Abs Auto 0.05 X10*3/uL (0.00-0.03); Imm Gran Pct Auto 0.4 % (0.0-0.4); Lymphocytes Absolute Auto 1.9 X10*3/uL (1.2-4.9); Lymphocytes Percent Auto 14.2 % (20-40); Mean Corpuscular HGB Conc 34.2 g/dl (31.0-35.0); Mean Corpuscular Hemoglobin 31.2 pg (27.0-33.0); Mean Corpuscular Volume 91.4 fL (80.0-98.0); Mean Platelet Volume 10.1 fL (9.4-12.3); Monocytes Absolute Auto 0.9 X10*3/uL (0.1-1.2); Neutrophils Absolute Auto 10.3 x10*3/uL (2.0-8.3); Neutrophils Percent Auto 77.2 % (45-73); Platelet Count 221 X10*3/uL (160-400); Red Blood Count 4.29 X10*6/uL (4.20-5.50); Red Cell Distribution Width 13.1 % (11.0-16.0); White Blood Count 13.4 X10*3/uL (4.8-10.8)
[2022-08-04 21:07] LABS: D Dimer High Sensitivity 550 NG/ML
[2022-08-04 21:17] LABS: Alanine Aminotransferase 20 U/L (0-31); Alkaline Phosphatase 94 U/L (39-117); Anion Gap 18 (12-20); Aspartate Amino Transferase 22 U/L (5-31); Blood Urea Nitrogen 9 mg/dL (9-16); Calcium 9.5 mg/dL (8.4-10.2); Carbon Dioxide 24 mmol/L (22-29); Chloride 97 mmol/L (96-108); Creatinine Clr Calc Pharmacy 97.8; Estimated Glomerular Filt Rate > 60; Ethanol < 10 mg/dL; Glucose Random 102 mg/dL (60-115); Magnesium 1.7 mg/dL (1.6-2.6); Potassium 3.2 mmol/L (3.3-5.1); Sodium 136 mmol/L (135-145); Total Protein 6.9 g/dL (6.5-8.0)
[2022-08-04 21:19] LABS: COVID-19 Test Negative (Negative)
[2022-08-04 21:25] LABS: Troponin-I High Sensitivity < 3.5 ng/L (<3.5-17.0)
[2022-08-04 21:44] LABS: Appearance Urine Clear; Color Urine Dark Yellow; Glucose Urine UA Negative (Negative); Leukocyte Esterase Urine Small (1+) (Negative); Nitrite Urine Positive (Negative); PH 5.5 (5.0-9.0); Specific Gravity - Urine >= 1.030 (1.005-1.025); UMIC TRIGGER UACC YES; Urine Blood Negative (Negative); Urine Ketones Trace mg/dL (Negative); Urine Protein 30 (1+) mg/dL (Neg-Trace)
[2022-08-04 22:02] LABS: Bacteria Urine Trace (None Seen); Hyaline Casts Urine 0-2 /LPF (0-2); UACC Culture Trigger YES; WBC Urine 0-5 /HPF (0-5)
[2022-08-04 22:03] LABS: Amphetamine Screen Urine POSITIVE (Not Detect); Barbiturates, Urine Not Detected (Not Detect); Benzodiazepines Screen Urine Not Detected (Not Detect); Cannabinoid Screen Urine Not Detected (Not Detect); Cocaine Screen Urine Not Detected (Not Detect); Fentanyl, urine POSITIVE (Not Detect); Opiate Screen Urine Not Detected (Not Detect); Phencyclidine Screen Urine Not Detected (Not Detect)
[2022-08-04] MEDS: Potassium Chloride ER 20 MEQ TAB.ER.PRT 40 MEQ PO (22:40)
== END 2022-08-04 22:55 | disposition left against medical advice (07) ==
PROVIDERS: Nurse Practitioner Family; Emergency Provider Emergency Medicine Emergency Medical Services; PCP Family Medicine
DX: S22.41XA Multiple fractures of ribs, right side, initial encounter for closed fracture (principal); N39.0 Urinary tract infection, site not specified; R07.81 Pleurodynia; R07.89 Other chest pain; R51.9 Headache, unspecified; W01.0XXA Fall on same level from slipping, tripping and stumbling without subsequent striking against object, initial encounter; Y93.9 Activity, unspecified; Y92.9 Unspecified place or not applicable; Y99.9 Unspecified external cause status; Z20.822 Contact with and (suspected) exposure to COVID-19; Z79.899 Other long term (current) drug therapy
CPT/HCPCS: 36415; 70450; 71101; 80053; 80307; 81001; 82077; 83735; 84484; 85025; 85379; 87086; 87635; 93005; 99284

== ENCOUNTER → 2022-11-10 12:56 | Outpatient (BNVA) | payer MEDICAID, SELFPAY | PROVIDERS: PCP Family Medicine; Visit Provider Nurse Practitioner Psychiatric/Mental Health | DX: F11.20 Opioid dependence, uncomplicated (principal); F10.10 Alcohol abuse, uncomplicated | CPT/HCPCS: 80305; 99212 ==

== ENCOUNTER → 2022-11-20 12:55 | Outpatient (BNVA) | payer MEDICAID, SELFPAY | PROVIDERS: PCP Family Medicine; Visit Provider Nurse Practitioner Psychiatric/Mental Health | DX: F11.20 Opioid dependence, uncomplicated (principal) | CPT/HCPCS: 80305; 99212 ==

== ENCOUNTER → 2022-12-04 13:08 | Outpatient (BNVA) | payer MEDICAID, SELFPAY | PROVIDERS: PCP Family Medicine; Visit Provider Nurse Practitioner Psychiatric/Mental Health | DX: F11.20 Opioid dependence, uncomplicated (principal) | CPT/HCPCS: 99212 ==

== ENCOUNTER → 2023-01-01 13:04 | Outpatient (BNVA) | payer MEDICAID, SELFPAY | PROVIDERS: PCP Family Medicine; Visit Provider Nurse Practitioner Psychiatric/Mental Health | DX: F11.20 Opioid dependence, uncomplicated (principal); G62.9 Polyneuropathy, unspecified; Z51.81 Encounter for therapeutic drug level monitoring; Z79.899 Other long term (current) drug therapy | CPT/HCPCS: 99212 ==

== ENCOUNTER → 2023-01-29 12:57 | Outpatient (BNVA) | payer MEDICAID, SELFPAY | PROVIDERS: PCP Family Medicine; Visit Provider Nurse Practitioner Psychiatric/Mental Health | DX: F11.20 Opioid dependence, uncomplicated (principal) | CPT/HCPCS: 80305; 99212 ==

== ENCOUNTER → 2023-03-02 12:58 | Outpatient (BNVA) | payer OTHER, SELFPAY | PROVIDERS: PCP Family Medicine; Visit Provider Nurse Practitioner Psychiatric/Mental Health | DX: F11.20 Opioid dependence, uncomplicated (principal); F10.10 Alcohol abuse, uncomplicated | CPT/HCPCS: 99212 ==

== ENCOUNTER → 2023-04-02 13:01 | Outpatient (BNVA) | payer OTHER, SELFPAY | PROVIDERS: PCP Family Medicine; Visit Provider Nurse Practitioner Psychiatric/Mental Health | DX: Z51.81 Encounter for therapeutic drug level monitoring (principal); F11.20 Opioid dependence, uncomplicated | CPT/HCPCS: 99212 ==

== ENCOUNTER 2023-05-13 13:18 | Outpatient (AMB) | payer MEDICAID, SELFPAY ==
--- NOTE | 2023-05-13 13:19 | A.OFFVIS_ITS ---
Intake Vital Signs 05/13/23 13:35 BP 118/72 Blood Pressure Location Lt radial Position Sitting Pulse 84 Pulse Source Pulse Oximeter Pulse Oximetry (%) 97 Oxygen Delivery Method Room Air Intake Visit Reasons: MAT Visit Intake Note: The patient presents for a mat visit Shoe Stainer Required: No Allergies Seasonal Allergies Allergy (Mild, Verified 05/13/23 13:23) Itchy Eyes Do you need a note to return to daycare/school/sports/work: No HPI MAT Visit HPI Details Patient presents for follow up. Currently prescribed Suboxone 8 mg b.i.d. Has been with [facility] since December 2022, prior to this had been with [facility]. Doing well with medication. No side effects reported. Fractured her shoulder on April 05 Following up with PCP in 2 weeks Restarted Fluoxetine [facility] Medical History delivery delivered Opioid abuse Family History Father No family history of coronary artery disease Mother No family history of coronary artery disease Social History Household Members: Children Housing: Apartment Do you presently have visiting nurse or other home services: No Alcohol intake: current Alcohol intake frequency: 3 or more drinks per day Patient Tobacco Use Status: Never used Tobacco Substance Use Type: Heroin service: No Current occupational status: employed Review of Systems Const Reports as per HPI and Reports no additional complaints Physical Exam Vital Signs: Last Vital Signs Pulse 84 05/13/23 13:35 BP 118/72 05/13/23 13:35 Pulse Ox 97 05/13/23 13:35 Oxygen Delivery Method Room Air 05/13/23 13:35 Const General: cooperative, no acute distress, well developed and alert Nutritional Appearance: average body habitus Orientation/consciousness: patient oriented x3 Limitations: no limitations Skin General skin exam: ecchymosis Neuro General: patient oriented x3 Psych Appearance: grossly normal Mental Status: mental status grossly normal Speech and movement: Normal speech and movement present Affect: normal affect and Anxious affect present (slightly) Attitude: cooperative Thought process: Normal thought process present Thought content: Normal thought content present Insight: Good insight present (Psych) Judgement: Good judgement present (Psych) Results AMB 14 Panel Urine Drug Screen Urine Marijuana (THC) Positive Last Edit by Comfort Dalal CMA on 05/13/23 13:38 Urine Cocaine Negative Last Edit by Comfort Dalal CMA on 05/13/23 13:38 Urine Morphine Negative Last Edit by Comfort Dalal CMA on 05/13/23 13:38 Urine Methamphetamine Negative Last Edit by Comfort Dalal CMA on 05/13/23 13:38 Urine Amphetamine Negative Last Edit by Comfort Dalal CMA on 05/13/23 13:3 8 Urine Benzodiazepine Negative Last Edit by Comfort Dalal CMA on 05/13/23 13:38 Urine Barbiturates Negative Last Edit by Comfort Dalal CMA on 05/13/23 13: 38 Urine Methadone Negative Last Edit by Comfort Dalal CMA on 05/13/23 13:38 Urine Buprenorphine Positive Last Edit by Comfort Dalal CMA on 05/13/23 13 :38 Urine Tricyclic Antidepressant Positive Last Edit by Comfort Dalal CMA on 05/13/23 13:38 Urine MDMA Negative Last Edit by Comfort Dalal CMA on 05/13/23 13:38 Urine Oxycodone Negative Last Edit by Comfort Dalal CMA on 05/13/23 13:38 Urine Phencyclidine Negative Last Edit by Comfort Dalal CMA on 05/13/23 13 :38 Urine Propoxyphene Negative Last Edit by Comfort Dalal CMA on 05/13/23 13: 38 Results Reviewed Results Reviewed: Laboratory Last Values POC Urine Buprenorphine Positive 05/13/23 13:23 POC Urine Morphine Negative 05/13/23 13:23 POC Urine Oxycodone Negative 05/13/23 13:23 POC Urine Methadone Negative 05/13/23 13:23 POC Urine Propoxyphene Negative 05/13/23 13:23 POC Urine Barbiturates Negative 05/13/23 13:23 POC U Tricyclic Antidpr Positive 05/13/23 13:23 POC Urine PCP Negative 05/13/23 13:23 POC Ur Amphetamines Negative 05/13/23 13:23 POC Ur Methamphetamine Negative 05/13/23 13:23 POC Urine MDMA Negative 05/13/23 13:23 POC Ur Benzodiazepine Negative 05/13/23 13:23 POC Urine Cocaine Negative 05/13/23 13:23 POC Ur Marijuana (THC) Positive 05/13/23 13:23 Assessment & Plan Assessment & Plan (1) Opioid use disorder, moderate, dependence: Code(s): F11.20 - Opioid dependence, uncomplicated Plan: * Continue Suboxone at current dose * Follow-up 4 weeks Orders: Orders AMB 14 Panel Urine Drug Screen Today Z51.81 - Encounter for therapeutic drug level monitoring Medications: Refilled buprenorphine-naloxone 8-2 mg (Suboxone) 1 film sublingual BID 60 ea 0RF Coding Level of Care Code Est Pt Level 3 (28727) Diagnoses Opioid use disorder, moderate, dependence F11.20
[2023-05-13 13:35] VITALS: BP 118/72; PULSE 84; O2SAT 97
== END 2023-05-13 14:10 | disposition home or self-care (01) ==
LOC: HO.HCC 13:18
PROVIDERS: PCP Family Medicine; Visit Provider Nurse Practitioner Psychiatric/Mental Health
DX: F11.20 Opioid dependence, uncomplicated (principal)
CPT/HCPCS: 99213

== ENCOUNTER → 2023-05-13 13:18 | Outpatient (BNVA) | payer MEDICAID, SELFPAY | PROVIDERS: PCP Family Medicine; Visit Provider Nurse Practitioner Psychiatric/Mental Health | DX: Z51.81 Encounter for therapeutic drug level monitoring (principal); F11.20 Opioid dependence, uncomplicated | CPT/HCPCS: 80305; 99213 ==

== ENCOUNTER 2023-06-21 14:52 | Outpatient (AMB) | payer MEDICAID, SELFPAY ==
[2023-06-21 14:59] VITALS: BP 124/70; PULSE 91; O2SAT 96
--- NOTE | 2023-06-21 14:59 | MHC.OFFVIS ---
Intake Vital Signs 06/21/23 14:59 BP 124/70 Blood Pressure Location Lt radial Position Sitting Pulse 91 Pulse Source Pulse Oximeter Pulse Oximetry (%) 96 Oxygen Delivery Method Room Air Intake Visit Reasons: mat visit Intake Note: the patient presents for a mat visit Biological Science Aide Required: No Allergies Seasonal Allergies Allergy (Mild, Verified 06/21/23 15:00) Itchy Eyes Do you need a note to return to daycare/school/sports/work: No HPI mat visit HPI Details Patient presents for JOANIE treatment follow up Currently prescribed Suboxone 8mg BID Restarted campral --was having cravings to drink due to increased stress Not working at this time, continues to apply for housing Tolerating Prozac 20 mg, reports that she has not crying as frequently but still feels quite sad and overwhelmed often would like to increase dose. [facility] Medical History delivery delivered Opioid abuse Family History Father No family history of coronary artery disease Mother No family history of coronary artery disease Social History Household Members: Children Housing: Apartment Do you presently have visiting nurse or other home services: No Alcohol intake: current Alcohol intake frequency: 3 or more drinks per day Patient Tobacco Use Status: Never used Tobacco Substance Use Type: Heroin service: No Current occupational status: employed Review of Systems Const Reports as per HPI Physical Exam Vital Signs: Last Vital Signs Pulse 91 06/21/23 14:59 BP 124/70 06/21/23 14:59 Pulse Ox 96 06/21/23 14:59 Oxygen Delivery Method Room Air 06/21/23 14:59 Const General: cooperative, no acute distress, well developed and alert Nutritional Appearance: average body habitus Orientation/consciousness: patient oriented x3 Limitations: no limitations Skin General skin exam: ecchymosis Neuro General: patient oriented x3 Psych Appearance: grossly normal Mental Status: mental status grossly normal Speech and movement: Normal speech and movement present Affect: normal affect and Anxious affect present (slightly) Attitude: cooperative Thought process: Normal thought process present Thought content: Normal thought content present Insight: Good insight present (Psych) Judgement: Good judgement present (Psych) Assessment & Plan Assessment & Plan (1) Opioid use disorder, moderate, dependence: Code(s): F11.20 - Opioid dependence, uncomplicated Plan: Continue Suboxone at current dose Follow-up 4 weeks Refilled Campral per patient request Increase Prozac dose to 40 mg daily Encourage patient call the office with any questions or concerns prior to next appointment Medications: New fluoxetine 40 mg PO DAILY 30 caps 1RF acamprosate 666 mg (2 x 333 mg) PO TID 180 tabs 0RF Refilled buprenorphine-naloxone 8-2 mg (Suboxone) 1 film sublingual BID 60 ea 0RF Discontinued fluoxetine (Prozac) Discontinued Reason: Doctor's Order 20 mg PO DAILY 30 caps 3RF Coding Level of Care Code Est Pt Level 4 (73621) Diagnoses Opioid use disorder, moderate, dependence F11.20
== END 2023-06-21 15:26 | disposition home or self-care (01) ==
LOC: HO.HCC 14:52
PROVIDERS: PCP Family Medicine; Visit Provider Nurse Practitioner Psychiatric/Mental Health
DX: F11.20 Opioid dependence, uncomplicated (principal)
CPT/HCPCS: 99214

== ENCOUNTER → 2023-06-21 14:52 | Outpatient (BNVA) | payer MEDICAID, SELFPAY | PROVIDERS: PCP Family Medicine; Visit Provider Nurse Practitioner Psychiatric/Mental Health | DX: F11.20 Opioid dependence, uncomplicated (principal); Z51.81 Encounter for therapeutic drug level monitoring; Z79.899 Other long term (current) drug therapy | CPT/HCPCS: 99214 ==

== ENCOUNTER 2023-07-16 13:48 | Outpatient (AMB) | payer MEDICAID, SELFPAY ==
--- NOTE | 2023-07-16 13:48 | MHC.OFFVIS ---
Intake Vital Signs 07/16/23 13:54 BP 122/78 Blood Pressure Location Lt radial Position Sitting Pulse 82 Pulse Source Pulse Oximeter Pulse Oximetry (%) 96 Oxygen Delivery Method Room Air Intake Visit Reasons: mat visit Intake Note: the patient presents for a mat visit Real Estate Transaction Coordinator Required: No Allergies Seasonal Allergies Allergy (Mild, Verified 07/16/23 13:55) Itchy Eyes Do you need a note to return to daycare/school/sports/work: No HPI mat visit HPI Details Patient presents for JOANIE treatment follow up Reports increase in prozac has been helpful Doing well with recovery. Has been spending time with her daughter. [facility] Medical History delivery delivered Opioid abuse Family History Father No family history of coronary artery disease Mother No family history of coronary artery disease Social History Household Members: Children Housing: Apartment Do you presently have visiting nurse or other home services: No Alcohol intake: current Alcohol intake frequency: 3 or more drinks per day Patient Tobacco Use Status: Never used Tobacco Substance Use Type: Heroin service: No Current occupational status: employed Review of Systems Const Reports as per HPI and Reports no additional complaints Physical Exam Vital Signs: Last Vital Signs Pulse 82 07/16/23 13:54 BP 122/78 07/16/23 13:54 Pulse Ox 96 07/16/23 13:54 Oxygen Delivery Method Room Air 07/16/23 13:54 Const General: cooperative, no acute distress, well developed and alert Nutritional Appearance: average body habitus Orientation/consciousness: patient oriented x3 Limitations: no limitations Skin General skin exam: ecchymosis Neuro General: patient oriented x3 Psych Appearance: grossly normal Mental Status: mental status grossly normal Speech and movement: Normal speech and movement present Affect: normal affect and Anxious affect present (slightly) Attitude: cooperative Thought process: Normal thought process present Thought content: Normal thought content present Insight: Good insight present (Psych) Judgement: Good judgement present (Psych) Assessment & Plan Assessment & Plan (1) Opioid use disorder, moderate, dependence: Code(s): F11.20 - Opioid dependence, uncomplicated Plan: Continue Suboxone at current dose Follow-up 4 weeks Medications: Refilled acamprosate 666 mg (2 x 333 mg) PO TID 180 tabs 1RF buprenorphine-naloxone 8-2 mg (Suboxone) 1 film sublingual BID 60 ea 0RF Coding Level of Care Code Est Pt Level 3 (60338) Diagnoses Opioid use disorder, moderate, dependence F11.20
[2023-07-16 13:54] VITALS: BP 122/78; PULSE 82; O2SAT 96
== END 2023-07-16 14:37 | disposition home or self-care (01) ==
LOC: HO.HCC 13:48
PROVIDERS: PCP Family Medicine; Visit Provider Nurse Practitioner Psychiatric/Mental Health
DX: F11.20 Opioid dependence, uncomplicated (principal)
CPT/HCPCS: 99213

== ENCOUNTER → 2023-07-16 13:48 | Outpatient (BNVA) | payer MEDICAID, SELFPAY | PROVIDERS: PCP Family Medicine; Visit Provider Nurse Practitioner Psychiatric/Mental Health | DX: F11.20 Opioid dependence, uncomplicated (principal) | CPT/HCPCS: 99212 ==

== ENCOUNTER 2023-08-25 13:51 | Outpatient (AMB) | payer MEDICAID, SELFPAY ==
--- NOTE | 2023-08-25 13:59 | MHC.OFFVIS ---
Intake Vital Signs 08/25/23 14:01 BP 134/82 Blood Pressure Location Lt radial Position Sitting Pulse 74 Pulse Source Pulse Oximeter Pulse Oximetry (%) 74 L Oxygen Delivery Method Room Air Intake Visit Reasons: mat visit Intake Note: the patient presents for a mat visit Tail Sawyer Required: No Allergies Seasonal Allergies Allergy (Mild, Verified 08/25/23 14:02) Itchy Eyes Medication List - Last Reconciled 08/25/23 by Maria G Roland, ANIMAL SCIENCE PROFESSOR acamprosate 666 mg (2 x 333 mg) PO TID amitriptyline 1 tab PO BEDTIME buprenorphine-naloxone 8-2 mg (Suboxone) 1 film sublingual BID fluoxetine 40 mg PO DAILY walker (Ultra-Light Rollator misc) As directed Do you need a note to return to daycare/school/sports/work: No HPI mat visit HPI Details Pt presents for OUD follow up and treatment. Reports her grandmother last week, It was for the best, she is in a better place Reports her grandmother had dementia and no longer recognized her for the past few years, processed loss with patient. Reports that she is continuing to do well with recovery, and next year will be her year anniversary of being sober. Reports she has many supports. [facility] Medical History delivery delivered Opioid abuse Family History Father No family history of coronary artery disease Mother No family history of coronary artery disease Social History Household Members: Children Housing: Apartment Do you presently have visiting nurse or other home services: No Alcohol intake: current Alcohol intake frequency: 3 or more drinks per day Patient Tobacco Use Status: Never used Tobacco Substance Use Type: Heroin service: No Current occupational status: employed Review of Systems Const Reports as per HPI Physical Exam Vital Signs: Last Vital Signs Pulse 74 08/25/23 14:01 BP 134/82 08/25/23 14:01 Pulse Ox 74 L 08/25/23 14:01 Oxygen Delivery Method Room Air 08/25/23 14:01 Const General: healthy appearing and no acute distress Orientation/consciousness: patient oriented x3 Resp Effort & Inspection: normal respiratory effort Neuro General: patient oriented x3 Psych Appearance: grossly normal Affect: normal affect Attitude: cooperative Assessment & Plan Assessment & Plan (1) Opioid use disorder, moderate, dependence: Code(s): F11.20 - Opioid dependence, uncomplicated Plan: Continue suboxone at current dose. Follow up in 4 weeks. Plan reviewed with TIRSO Roland Medications: New ibuprofen 600 mg PO Q6H 30 days PRN 120 tabs 0RF pain Refilled buprenorphine-naloxone 8-2 mg (Suboxone) 1 film sublingual BID 60 ea 0RF Coding Level of Care Code Est Pt Level 3 (01310) Diagnoses Opioid use disorder, moderate, dependence F11.20
[2023-08-25 14:01] VITALS: BP 134/82; PULSE 74; O2SAT 74
== END 2023-08-25 15:18 | disposition home or self-care (01) ==
PROVIDERS: PCP Family Medicine; Visit Provider Nurse Practitioner Psychiatric/Mental Health
DX: F11.20 Opioid dependence, uncomplicated (principal)
CPT/HCPCS: 99213

== ENCOUNTER → 2023-08-25 13:51 | Outpatient (BNVA) | payer MEDICAID, SELFPAY | PROVIDERS: PCP Family Medicine; Visit Provider Nurse Practitioner Psychiatric/Mental Health | DX: F11.20 Opioid dependence, uncomplicated (principal) | CPT/HCPCS: 99212 ==

== ENCOUNTER 2023-09-27 14:11 | Outpatient (AMB) | payer MEDICAID, SELFPAY ==
--- NOTE | 2023-09-27 14:16 | MHC.OFFVIS ---
Intake Vital Signs 09/27/23 14:26 BP 116/70 Blood Pressure Location Lt radial Position Sitting Pulse 93 Pulse Source Pulse Oximeter Pulse Oximetry (%) 97 Oxygen Delivery Method Room Air Intake Visit Reasons: mat visit Intake Note: the patient is here for a mat visit Health Consultant Required: No Allergies Seasonal Allergies Allergy (Mild, Verified 09/27/23 14:25) Itchy Eyes Do you need a note to return to daycare/school/sports/work: No HPI mat visit HPI Details Presents for JOANIE treatment and follow up She is currently taking suboxone 8mg BID and is doing well with this dose Recently returned from visiting family for Thanksgiving. Doing well with her recovery, has no concerns. No concerns for side effects PFSH Medical History delivery delivered Opioid abuse Family History Father No family history of coronary artery disease Mother No family history of coronary artery disease Household Members: Children Housing: Apartment Do you presently have visiting nurse or other home services: No Alcohol intake: current Alcohol intake frequency: 3 or more drinks per day Patient Tobacco Use Status: Never used Tobacco Substance Use Type: Heroin service: No Current occupational status: employed Review of Systems Const Reports as per HPI Physical Exam Vital Signs: Last Vital Signs Pulse 93 09/27/23 14:26 BP 116/70 09/27/23 14:26 Pulse Ox 97 09/27/23 14:26 Oxygen Delivery Method Room Air 09/27/23 14:26 Assessment & Plan Assessment & Plan (1) Opioid use disorder, moderate, dependence: Code(s): F11.20 - Opioid dependence, uncomplicated Plan: Continue suboxone at current dose Follow up in one month Encouraged to call the office if she needs to be seen sooner. Medications: Refilled buprenorphine-naloxone 8-2 mg (Suboxone) 1 film sublingual BID 60 ea 0RF Coding Level of Care Code Est Pt Level 3 (00791) Diagnoses Opioid use disorder, moderate, dependence F11.20
[2023-09-27 14:26] VITALS: BP 116/70; PULSE 93; O2SAT 97
== END 2023-09-27 14:53 | disposition home or self-care (01) ==
PROVIDERS: PCP Family Medicine; Visit Provider Nurse Practitioner Family
DX: F11.20 Opioid dependence, uncomplicated (principal)
CPT/HCPCS: 99213

== ENCOUNTER → 2023-09-27 14:11 | Outpatient (BNVA) | payer MEDICAID, SELFPAY | PROVIDERS: PCP Family Medicine; Visit Provider Nurse Practitioner Family | DX: F11.20 Opioid dependence, uncomplicated (principal); Z51.81 Encounter for therapeutic drug level monitoring; Z79.899 Other long term (current) drug therapy | CPT/HCPCS: 99212 ==

== ENCOUNTER 2023-11-05 09:52 | Outpatient (AMB) | payer MEDICAID, SELFPAY ==
[2023-11-05 10:03] VITALS: BP 100/60; PULSE 62; RESP 22; O2SAT 93
--- NOTE | 2023-11-05 10:03 | MHC.AM.SUB ---
Intake Vital Signs 11/05/23 10:03 BP 100/60 Blood Pressure Location Rt brachial Position Sitting Respiration 22 H Pulse 62 Pulse Source Pulse Oximeter Pulse Oximetry (%) 93 Oxygen Delivery Method Room Air Intake Visit Reasons: MAT Visit Allergies Seasonal Allergies Allergy (Mild, Verified 09/27/23 14:25) Itchy Eyes HPI MAT Visit HPI Details Pt presents for JOANIE treatment and follow up She reports the last month has been stressful with the holidays and family. She feels as her prozac is not as effective as she would like it to be She feels stable at current suboxone dose, currently taking 8/2mg bid. She is asking for a refill on the campral today, reports she is having a couple of drinks 2-3 times weekly. She denies drinking to intoxication, would like to start the campral again before the alcohol use becomes a problem for her. [facility] Medical History delivery delivered Opioid abuse Family History Father No family history of coronary artery disease Mother No family history of coronary artery disease Social History Household Members: Children Housing: Apartment Do you presently have visiting nurse or other home services: No Alcohol intake: current Alcohol intake frequency: 3 or more drinks per day Patient Tobacco Use Status: Never used Tobacco Substance Use Type: Heroin service: No Current occupational status: employed Review of Systems Const Reports as per HPI Psych Reports depression, Denies homicidal ideation and Denies suicidal ideation Physical Exam Vital Signs: Last Vital Signs Pulse 62 11/05/23 10:03 Resp 22 H 11/05/23 10:03 BP 100/60 11/05/23 10:03 Pulse Ox 93 11/05/23 10:03 Oxygen Delivery Method Room Air 11/05/23 10:03 Const General: cooperative and no acute distress Resp Effort & Inspection: normal respiratory effort Psych Appearance: grossly normal Mental Status: mental status grossly normal Speech and movement: Normal speech and movement present Affect: normal affect Attitude: cooperative Thought process: Normal thought process present Assessment & Plan Assessment & Plan (1) Opioid use disorder, moderate, dependence: Code(s): F11.20 - Opioid dependence, uncomplicated Plan -Continue suboxone same dose -Mass pat reviewed -Harm reduction discussion -Discussed relapse prevention -Labwork ordered as patient hasn't had labs in over a year. TSH ordered due to pt's increased depression to rule out underlying cause. -Follow up 4 weeks Orders: Orders TSH reflex Free T4 Today F11.20 - Opioid dependence, uncomplicated Complete Blood Count Auto Diff Today F11.20 - Opioid dependence, uncomplicated Comprehensive Met. Panel Today F1.20 - Opioid dependence, uncomplicated Vitamin B12 and Folate Today F11.20 - Opioid dependence, uncomplicated Cholesterol Today F11.20 - Opioid dependence, uncomplicated Medications: Refilled buprenorphine-naloxone 8-2 mg (Suboxone) 1 film sublingual BID 60 ea 0RF acamprosate 666 mg (2 x 333 mg) PO TID 180 tabs 1RF Coding Level of Care Code Est Pt Level 4 (34406) Diagnoses Opioid use disorder, moderate, dependence F11.20
== END 2023-11-05 10:52 | disposition home or self-care (01) ==
PROVIDERS: PCP Family Medicine; Visit Provider Nurse Practitioner Family
DX: F11.20 Opioid dependence, uncomplicated (principal)
CPT/HCPCS: 99214

== ENCOUNTER → 2023-11-05 09:52 | Outpatient (BNVA) | payer MEDICAID, SELFPAY | PROVIDERS: PCP Family Medicine; Visit Provider Nurse Practitioner Family | DX: F11.20 Opioid dependence, uncomplicated (principal) | CPT/HCPCS: 99212 ==

== ENCOUNTER 2023-12-03 14:41 | Outpatient (AMB) | payer MEDICAID, SELFPAY ==
--- NOTE | 2023-12-03 14:42 | A.OFFVISCC_ITS ---
Intake Vital Signs 12/03/23 14:51 BP 110/78 Blood Pressure Location Lt radial Position Sitting Pulse 82 Pulse Source Pulse Oximeter Pulse Oximetry (%) 97 Oxygen Delivery Method Room Air Intake Visit Reasons: MAT Visit Intake Note: The patient presents for a mat visit Supervisor Volunteer Services Required: No Allergies Seasonal Allergies Allergy (Mild, Verified 12/03/23 14:52) Itchy Eyes Do you need a note to return to daycare/school/sports/work: No HPI MAT Visit HPI Details Patient presents for follow up reporting increase in stress as her sister is currently in our ED and will be placed in LTC facility in the near future she has previously attempted to care for her sister, who is diagnosed with Korsakoff, and finds it to be too much. She feels the campral may be working as in the past these types of stressors have usually led to her drinking. She has also connected with recovery network and has been going to meetings. [facility] Medical History delivery delivered Opioid abuse Family History Father No family history of coronary artery disease Mother No family history of coronary artery disease Social History Household Members: Children Housing: Apartment Do you presently have visiting nurse or other home services: No Alcohol intake: current Alcohol intake frequency: 3 or more drinks per day Patient Tobacco Use Status: Never used Tobacco Substance Use Type: Heroin service: No Current occupational status: employed Review of Systems Const Reports as per HPI Physical Exam Vital Signs: Last Vital Signs Pulse 82 12/03/23 14:51 BP 110/78 12/03/23 14:51 Pulse Ox 97 12/03/23 14:51 Oxygen Delivery Method Room Air 12/03/23 14:51 Const General: cooperative and no acute distress Resp Effort & Inspection: normal respiratory effort Psych Appearance: grossly normal Mental Status: mental status grossly normal Speech and movement: Normal speech and movement present Affect: normal affect Attitude: cooperative Thought process: Normal thought process present Results AMB 14 Panel Urine Drug Screen Urine Marijuana (THC) Negative Last Edit by Comfort Dalal CMA on 12/03/23 15:24 Urine Cocaine Negative Last Edit by Comfort Dalal CMA on 12/03/23 15:24 Urine Morphine Negative Last Edit by Comfort Dalal CMA on 12/03/23 15:24 Urine Methamphetamine Negative Last Edit by Comfort Dalal CMA on 12/03/23 15:24 Urine Amphetamine Negative Last Edit by Comfort Dalal CMA on 12/03/23 15:2 4 Urine Benzodiazepine Negative Last Edit by Comfort Dalal CMA on 12/03/23 15:24 Urine Barbiturates Negative Last Edit by Comfort Dalal CMA on 12/03/23 15: 24 Urine Methadone Negative Last Edit by Comfort Dalal CMA on 12/03/23 15:24 Urine Buprenorphine Positive Last Edit by Comfort Dalal CMA on 12/03/23 15 :24 Urine Tricyclic Antidepressant Positive Last Edit by Comfrot Dalal CMA on 12/03/23 15:24 Urine MDMA Negative Last Edit by Comfort Dalal CMA on 12/03/23 15:24 Urine Oxycodone Negative Last Edit by Comfort Dalal CMA on 12/03/23 15:24 Urine Phencyclidine Negative Last Edit by Comfort Dalal CMA on 12/03/23 15 :24 Urine Propoxyphene Negative Last Edit by Comfort Dalal CMA on 12/03/23 15: 24 Results Reviewed Results Reviewed: Laboratory Last Values POC Urine Buprenorphine Positive 12/03/23 14:53 POC Urine Morphine Negative 12/03/23 14:53 POC Urine Oxycodone Negative 12/03/23 14:53 POC Urine Methadone Negative 12/03/23 14:53 POC Urine Propoxyphene Negative 12/03/23 14:53 POC Urine Barbiturates Negative 12/03/23 14:53 POC U Tricyclic Antidpr Positive 12/03/23 14:53 POC Urine PCP Negative 12/03/23 14:53 POC Ur Amphetamines Negative 12/03/23 14:53 POC Ur Methamphetamine Negative 12/03/23 14:53 POC Urine MDMA Negative 12/03/23 14:53 POC Ur Benzodiazepine Negative 12/03/23 14:53 POC Urine Cocaine Negative 12/03/23 14:53 POC Ur Marijuana (THC) Negative 12/03/23 14:53 Assessment & Plan Assessment & Plan (1) Opioid use disorder, moderate, dependence: Code(s): F11.20 - Opioid dependence, uncomplicated Plan: * continue suboxone at current dose (2) Alcohol use disorder, moderate, dependence: Code(s): F10.20 - Alcohol dependence, uncomplicated Plan: * relapse prevention discussion * continue campral * follow up 4 weeks Orders: Orders AMB 14 Panel Urine Drug Screen 12/03/23 Z51.81 - Encounter for therapeutic drug level monitoring Coding Level of Care Code Est Pt Level 3 (61553) Diagnoses Opioid use disorder, moderate, dependence F11.20 Alcohol use disorder, moderate, dependence F10.20
[2023-12-03 14:51] VITALS: BP 110/78; PULSE 82; O2SAT 97
== END 2023-12-03 15:11 | disposition home or self-care (01) ==
PROVIDERS: PCP Family Medicine; Visit Provider Nurse Practitioner Psychiatric/Mental Health
DX: F11.20 Opioid dependence, uncomplicated (principal); F10.20 Alcohol dependence, uncomplicated
CPT/HCPCS: 99213

== ENCOUNTER → 2023-12-03 14:41 | Outpatient (BNVA) | payer MEDICAID, SELFPAY | PROVIDERS: PCP Family Medicine; Visit Provider Nurse Practitioner Psychiatric/Mental Health | DX: F11.20 Opioid dependence, uncomplicated (principal); F10.20 Alcohol dependence, uncomplicated | CPT/HCPCS: 80305; 99212 ==

== ENCOUNTER 2024-01-05 12:36 | Outpatient (REF) | payer MEDICAID, SELFPAY ==
[2024-01-05 12:49] LABS: MANUAL DIFF FLAG NO
[2024-01-05 13:47] LABS: Basophils Percent Auto 0.5 % (0-2); Eosinophils Absolute Auto 0.3 X10*3/uL (0.0-0.4); Eosinophils Percent Auto 5.1 % (0-4); Hemoglobin 12.2 g/dl (12.0-16.0); Imm Gran Abs Auto 0.02 X10*3/uL (0.00-0.03); Imm Gran Pct Auto 0.3 % (0.0-0.4); Lymphocytes Absolute Auto 1.9 X10*3/uL (1.2-4.9); Lymphocytes Percent Auto 32.1 % (20-40); Mean Corpuscular Volume 94.1 fL (80.0-98.0); Mean Platelet Volume 10.1 fL (9.4-12.3); Monocytes Absolute Auto 0.4 X10*3/uL (0.1-1.2); Monocytes Percent Auto 6.1 % (2-11); Neutrophils Absolute Auto 3.3 x10*3/uL (2.0-8.3); Neutrophils Percent Auto 55.9 % (45-73); Platelet Count 153 X10*3/uL (160-400); Red Blood Count 3.93 X10*6/uL (4.20-5.50); Red Cell Distribution Width 12.5 % (11.0-16.0); White Blood Count 5.9 X10*3/uL (4.8-10.8)
[2024-01-05 15:03] LABS: Alanine Aminotransferase 16 U/L (0-31); Albumin Level 3.7 g/dL (3.5-5.0); Alkaline Phosphatase 91 U/L (39-117); Anion Gap 9 (12-20); Aspartate Amino Transferase 21 U/L (5-31); Bilirubin Total 0.3 mg/dL (0.0-1.0); Blood Urea Nitrogen 13 mg/dL (9-16); Calcium 9.2 mg/dL (8.4-10.2); Carbon Dioxide 30 mmol/L (22-29); Chloride 106 mmol/L (96-108); Cholesterol 208 mg/dL (<200); Estimated Glomerular Filt Rate > 60; Glucose Random 99 mg/dL (60-115); Sodium 141 mmol/L (135-145)
[2024-01-05 15:13] LABS: Vitamin B12 484 pg/mL (200-900)
== END 2024-01-05 12:37 | disposition home or self-care (01) ==
LOC: HO.LAB 12:36
PROVIDERS: PCP Family Medicine; Visit Provider Nurse Practitioner Family
DX: F11.20 Opioid dependence, uncomplicated (principal); F10.20 Alcohol dependence, uncomplicated; Z79.899 Other long term (current) drug therapy
CPT/HCPCS: 36415; 80053; 80305; 82465; 82607; 82746; 84443; 85025; 99212

== ENCOUNTER 2024-01-05 12:55 | Outpatient (AMB) | payer MEDICAID, SELFPAY ==
--- NOTE | 2024-01-05 12:57 | MHC.AM.SUB ---
Intake Vital Signs 01/05/24 13:06 BP 132/80 Blood Pressure Location Lt radial Position Sitting Pulse 76 Pulse Source Pulse Oximeter Pulse Oximetry (%) 96 Oxygen Delivery Method Room Air Intake Visit Reasons: MAT Intake Note: the patient presents for a mat visit Account Development Specialist Required: No Allergies Seasonal Allergies Allergy (Mild, Verified 01/05/24 13:00) Itchy Eyes Do you need a note to return to daycare/school/sports/work: No HPI MAT HPI Details Patient presents for MAT visit Reports it has been a difficult month, her sister has been hospitalized and may need to go to a intermediate care facility and this has been tough for her She reports she did have a few glasses of wine when this all started about a month ago, but is no longer drinking She has been attending AA meetings 1-2 a month [facility] Medical History delivery delivered Opioid abuse Family History Father No family history of coronary artery disease Mother No family history of coronary artery disease Social History Household Members: Children Housing: Apartment Do you presently have visiting nurse or other home services: No Alcohol intake: current Alcohol intake frequency: 3 or more drinks per day Patient Tobacco Use Status: Never used Tobacco Substance Use Type: Heroin service: No Current occupational status: employed Review of Systems Const Reports as per HPI Physical Exam Vital Signs: Last Vital Signs Pulse 76 01/05/24 13:06 BP 132/80 01/05/24 13:06 Pulse Ox 96 01/05/24 13:06 Oxygen Delivery Method Room Air 01/05/24 13:06 Const General: cooperative and no acute distress Resp Effort & Inspection: normal respiratory effort and able to speak in complete sentences Skin General skin exam: no rashes or lesions noted Psych Appearance: grossly normal Speech and movement: Normal speech and movement present Affect: normal affect Attitude: cooperative Thought process: Normal thought process present Results AMB 14 Panel Urine Drug Screen Urine Marijuana (THC) Negative Last Edit by Comfort Dalal CMA on 01/05/24 13:09 Urine Cocaine Negative Last Edit by Comfort Dalal CMA on 01/05/24 13:09 Urine Morphine Negative Last Edit by Comfort Dalal CMA on 01/05/24 13:09 Urine Methamphetamine Negative Last Edit by Comfort Dalal CMA on 01/05/24 13:09 Urine Amphetamine Negative Last Edit by Comfort Dalal CMA on 01/05/24 13:09 Urine Benzodiazepine Negative Last Edit by Comfort Dalal CMA on 01/05/24 13:09 Urine Barbiturates Negative Last Edit by Comfort Dalal CMA on 01/05/24 13:09 Urine Methadone Negative Last Edit by Comfort Dalal CMA on 01/05/24 13:09 Urine Buprenorphine Positive Last Edit by Comfort Dalal CMA on 01/05/24 13:09 Urine Tricyclic Antidepressant Positive Last Edit by Comfort Dalal CMA on 01/05/24 13:09 Urine MDMA Negative Last Edit by Comfort Dalal CMA on 01/05/24 13:09 Urine Oxycodone Negative Last Edit by Comfort Dalal CMA on 01/05/24 13:09 Urine Phencyclidine Negative Last Edit by Comfort Dalal CMA on 01/05/24 13:09 Urine Propoxyphene Negative Last Edit by Comfort Dalal CMA on 01/05/24 13:09 Results Reviewed Results Reviewed: Laboratory Last Values POC Urine Buprenorphine Positive 01/05/24 13:00 POC Urine Morphine Negative 01/05/24 13:00 POC Urine Oxycodone Negative 01/05/24 13:00 POC Urine Methadone Negative 01/05/24 13:00 POC Urine Propoxyphene Negative 01/05/24 13:00 POC Urine Barbiturates Negative 01/05/24 13:00 POC U Tricyclic Antidpr Positive 01/05/24 13:00 POC Urine PCP Negative 01/05/24 13:00 POC Ur Amphetamines Negative 01/05/24 13:00 POC Ur Methamphetamine Negative 01/05/24 13:00 POC Urine MDMA Negative 01/05/24 13:00 POC Ur Benzodiazepine Negative 01/05/24 13:00 POC Urine Cocaine Negative 01/05/24 13:00 POC Ur Marijuana (THC) Negative 01/05/24 13:00 Assessment & Plan Assessment & Plan (1) Alcohol use disorder, moderate, dependence: Code(s): F10.20 - Alcohol dependence, uncomplicated Plan: -Relapse prevention discussed -Risk reduction discussion -She is requesting refill for her amytriptyline, reports she takes at bedtime for neuropathy, has been taking this and tolerating well for the last few months -Follow up 3 weeks (2) Opioid use disorder, moderate, dependence: Code(s): F11.20 - Opioid dependence, uncomplicated Plan: -Tolerating suboxone at current dose -No refill due at this time Orders: Orders AMB 14 Panel Urine Drug Screen 01/05/24 Z51.81 - Encounter for therapeutic drug level monitoring Medications: Changed From amitriptyline 1 tab PO BEDTIME To amitriptyline 150 mg PO BEDTIME 30 tabs 0RF Refilled fluoxetine 40 mg PO DAILY 30 caps 3RF Coding Level of Care Code Est Pt Level 3 (41586) Diagnoses Alcohol use disorder, moderate, dependence F10.20 Opioid use disorder, moderate, dependence F11.20
[2024-01-05 13:06] VITALS: BP 132/80; PULSE 76; O2SAT 96
== END 2024-01-05 13:46 | disposition home or self-care (01) ==
PROVIDERS: PCP Family Medicine; Visit Provider Nurse Practitioner Family
DX: F10.20 Alcohol dependence, uncomplicated (principal); F11.20 Opioid dependence, uncomplicated
CPT/HCPCS: 99213

== ENCOUNTER 2024-02-07 13:26 | Outpatient (AMB) | payer MEDICAID, SELFPAY ==
[2024-02-07 14:09] VITALS: BP 150/100; PULSE 72; O2SAT 98
--- NOTE | 2024-02-07 14:09 | A.OFFVISCC_ITS ---
Intake Vital Signs 02/07/24 14:09 BP 150/100 H Blood Pressure Location Lt brachial Position Sitting Pulse 72 Pulse Source Pulse Oximeter Pulse Oximetry (%) 98 Oxygen Delivery Method Room Air Intake Visit Reasons: Walk in Allergies Seasonal Allergies Allergy (Mild, Verified 01/05/24 13:00) Itchy Eyes HPI Walk in HPI Details Patient presents for MAT visit She reports experiencing significant stress with her sister in the hospital Reports she has been having more frequent exacerbations of asthma, has albuterol inhaler and is following up with primary care this week Has no current concerns for recovery Tolerating suboxone 8mg BID HPI Comments History of Present Illness Details Patient presents for MAT visit [facility] Medical History delivery delivered Opioid abuse Family History Father No family history of coronary artery disease Mother No family history of coronary artery disease Social History Household Members: Children Housing: Apartment Do you presently have visiting nurse or other home services: No Alcohol intake: current Alcohol intake frequency: 3 or more drinks per day Patient Tobacco Use Status: Never used Tobacco Substance Use Type: Heroin service: No Current occupational status: employed Review of Systems Const Reports as per HPI Physical Exam Vital Signs: Last Vital Signs Pulse 72 02/07/24 14:09 BP 150/100 H 02/07/24 14:09 Pulse Ox 98 02/07/24 14:09 Oxygen Delivery Method Room Air 02/07/24 14:09 Const General: cooperative and no acute distress Resp Effort & Inspection: normal respiratory effort and able to speak in complete sentences Psych Appearance: grossly normal Mental Status: mental status grossly normal Speech and movement: Normal speech and movement present Affect: normal affect Attitude: cooperative Thought process: Normal thought process present Assessment & Plan Assessment & Plan (1) Opioid use disorder, moderate, dependence: Code(s): F11.20 - Opioid dependence, uncomplicated Plan: -Mass pat reviewed, she has not picked up since 12/22, she states she has been taking her sister's films. T/w reviwewed with her the inappropriateness of taking meds that are not prescribed to her -Suboxone refilled -Follow up 4 weeks Medications: Refilled buprenorphine-naloxone 8-2 mg (Suboxone) 1 film sublingual BID 60 ea 0RF Coding Level of Care Code Est Pt Level 3 (79287) Diagnoses Opioid use disorder, moderate, dependence F11.20
== END 2024-02-07 13:55 | disposition home or self-care (01) ==
PROVIDERS: PCP Family Medicine; Visit Provider Nurse Practitioner Family
DX: F11.20 Opioid dependence, uncomplicated (principal)
CPT/HCPCS: 99213

== ENCOUNTER → 2024-02-07 13:26 | Outpatient (BNVA) | payer MEDICAID, SELFPAY | PROVIDERS: PCP Family Medicine; Visit Provider Nurse Practitioner Family | DX: F11.20 Opioid dependence, uncomplicated (principal) | CPT/HCPCS: 99212 ==

== ENCOUNTER 2024-03-08 14:56 | Outpatient (AMB) | payer MEDICAID, SELFPAY ==
--- NOTE | 2024-03-08 14:57 | A.OFFVISCC_ITS ---
Vital Signs 03/08/24 15:13 BP 150/100 H Blood Pressure Location Lt brachial Position Sitting Pulse 89 Pulse Source Pulse Oximeter Pulse Oximetry (%) 94 Oxygen Delivery Method Room Air Intake Visit Reasons: MAT Allergies Seasonal Allergies Allergy (Mild, Verified 01/05/24 13:00) Itchy Eyes HPI HPI MAT: Details: Patient presents for MAT appointment Doing well in recovery Taking and tolerating 8mg suboxone BID Has no concerns for side effects, cravings, or breakthrough withdrawal symptoms Has no concerns today HPI Comments Details: Patient presents for MAT visit [facility] Medical History delivery delivered Opioid abuse Family History Father No family history of coronary artery disease Mother No family history of coronary artery disease Social History Household Members: Children Housing: Apartment Do you presently have visiting nurse or other home services: No Alcohol intake: current Alcohol intake frequency: 3 or more drinks per day Patient Tobacco Use Status: Never used Tobacco Substance Use Type: Heroin service: No Current occupational status: employed Review of Systems Const Reports as per HPI Physical Exam Vital Signs: Last Vital Signs Pulse 89 03/08/24 15:13 BP 150/100 H 03/08/24 15:13 Pulse Ox 94 03/08/24 15:13 Oxygen Delivery Method Room Air 03/08/24 15:13 Const General: cooperative and no acute distress Resp Effort & Inspection: normal respiratory effort and able to speak in complete sentences Psych Appearance: grossly normal Mental Status: mental status grossly normal Speech and movement: Normal speech and movement present Affect: normal affect Attitude: cooperative Thought process: Normal thought process present Assessment & Plan Assessment & Plan (1) Opioid use disorder, moderate, dependence: Code(s): F11.20 - Opioid dependence, uncomplicated Category: Medical Plan: -Mass pat reviewed -Suboxone refill sent to pharmacy -Follow up 4 weeks Medications: Refilled buprenorphine-naloxone 8-2 mg (Suboxone) 1 film sublingual BID 60 ea 0RF
[2024-03-08 15:13] VITALS: BP 150/100; PULSE 89; O2SAT 94
== END 2024-03-08 15:20 | disposition home or self-care (01) ==
PROVIDERS: PCP Family Medicine; Visit Provider Nurse Practitioner Family
DX: F11.20 Opioid dependence, uncomplicated (principal)
CPT/HCPCS: 99213

== ENCOUNTER → 2024-03-08 14:56 | Outpatient (BNVA) | payer MEDICAID, SELFPAY | PROVIDERS: PCP Family Medicine; Visit Provider Nurse Practitioner Family | DX: F11.20 Opioid dependence, uncomplicated (principal); Z79.899 Other long term (current) drug therapy; Z51.81 Encounter for therapeutic drug level monitoring | CPT/HCPCS: 99212 ==

== ENCOUNTER → 2024-04-14 13:00 | Outpatient (BNVA) | payer MEDICAID, SELFPAY | PROVIDERS: PCP Family Medicine; Visit Provider Nurse Practitioner Family | DX: F11.20 Opioid dependence, uncomplicated (principal) | CPT/HCPCS: 99212 ==

== ENCOUNTER 2024-06-26 13:08 | Outpatient (AMB) | payer MEDICAID, SELFPAY ==
--- NOTE | 2024-06-26 13:38 | MHC.AM.SUB ---
Intake Visit Reasons: MAT Office Allergies Seasonal Allergies Allergy (Mild, Verified 01/05/24 13:00) Itchy Eyes HPI HPI MAT Office: Details: Patient presents for follow up Abstaining from opiates for a few years Alcohol use --wine cooler occasionally Finds Campral helpful Still living with older sister --finds it stressful at times ON LICENSE OF [facility] Medical History delivery delivered Opioid abuse Family History Father No family history of coronary artery disease Mother No family history of coronary artery disease Social History Household Members: Children Housing: Apartment Do you presently have visiting nurse or other home services: No Alcohol intake: current Alcohol intake frequency: 3 or more drinks per day Patient Tobacco Use Status: Never used Tobacco Substance Use Type: Heroin service: No Current occupational status: employed Review of Systems Const Reports as per HPI and Reports no additional complaints Physical Exam Const General: cooperative, healthy appearing and no acute distress Nutritional Appearance: overweight Orientation/consciousness: patient oriented x3 Limitations: no limitations Neuro General: patient oriented x3 Assessment & Plan Assessment & Plan (1) Opioid use disorder, moderate, in sustained remission: Code(s): F11.21 - Opioid dependence, in remission Category: Medical Plan: continue suboxone at current dose follow up 6 weeks
== END 2024-06-26 13:59 | disposition home or self-care (01) ==
PROVIDERS: PCP Family Medicine; Visit Provider Nurse Practitioner Psychiatric/Mental Health
DX: F11.21 Opioid dependence, in remission (principal)
CPT/HCPCS: 99213

== ENCOUNTER → 2024-06-26 13:08 | Outpatient (BNVA) | payer MEDICAID, SELFPAY | PROVIDERS: PCP Family Medicine; Visit Provider Nurse Practitioner Psychiatric/Mental Health | DX: F11.21 Opioid dependence, in remission (principal) | CPT/HCPCS: 99212 ==

== ENCOUNTER 2024-08-09 14:05 | Outpatient (AMB) | payer MEDICAID, SELFPAY ==
--- NOTE | 2024-08-09 14:10 | MHC.AM.SUB ---
Intake Visit Reasons: MAT Office Allergies Seasonal Allergies Allergy (Mild, Verified 01/05/24 13:00) Itchy Eyes HPI HPI MAT Office: Details: Patient presents for follow up currently prescribed suboxone 8mg BID tolerating dose working on disability case up to date with primary care fell down some stairs recently discussed BP--reading high at primary care [facility] Medical History (Updated 08/09/24 @ 14:15 by Shelia Wilde CNP) Opioid abuse delivery delivered Family History Father No family history of coronary artery disease Mother No family history of coronary artery disease Social History Household Members: Children Housing: Apartment Do you presently have visiting nurse or other home services: No Alcohol intake: current Alcohol intake frequency: 3 or more drinks per day Patient Tobacco Use Status: Never used Tobacco Substance Use Type: Heroin service: No Current occupational status: employed Review of Systems Const Reports as per HPI Physical Exam Const General: cooperative, healthy appearing and no acute distress Nutritional Appearance: overweight Orientation/consciousness: patient oriented x3 Limitations: no limitations Neuro General: patient oriented x3 Assessment & Plan Assessment & Plan (1) Opioid use disorder, moderate, in sustained remission: Code(s): F11.21 - Opioid dependence, in remission Category: Medical Plan: continue suboxone at current dose encouraged to follow up with primary care re: BP Medications: Refilled buprenorphine-naloxone 8-2 mg (Suboxone) 1 film sublingual BID 60 ea 1RF
== END 2024-08-09 14:39 | disposition home or self-care (01) ==
PROVIDERS: PCP Family Medicine; Visit Provider Nurse Practitioner Psychiatric/Mental Health
DX: F11.21 Opioid dependence, in remission (principal)
CPT/HCPCS: 99213

== ENCOUNTER → 2024-08-09 14:05 | Outpatient (BNVA) | payer MEDICAID, SELFPAY | PROVIDERS: PCP Family Medicine; Visit Provider Nurse Practitioner Psychiatric/Mental Health | DX: F11.21 Opioid dependence, in remission (principal); Z51.81 Encounter for therapeutic drug level monitoring | CPT/HCPCS: 99212 ==

== ENCOUNTER 2024-10-04 13:58 | Outpatient (AMB) | payer MEDICAID, SELFPAY ==
--- NOTE | 2024-10-04 14:03 | A.OFFVISCC_ITS ---
Intake Visit Reasons: MAT Office Allergies Seasonal Allergies Allergy (Mild, Verified 01/05/24 13:00) Itchy Eyes Medication List - Last Reconciled 10/04/24 by Shelia Wilde CNP acamprosate 666 mg (2 x 333 mg) PO TID amitriptyline 150 mg PO BEDTIME buprenorphine-naloxone 8-2 mg (Suboxone) 1 film sublingual BID fluoxetine 40 mg PO DAILY gabapentin 300 mg PO BEDTIME ibuprofen 600 mg PO Q6H PRN 30 days walker (Ultra-Light Rollator misc) As directed HPI HPI MAT Office: Details: Patient presents for follow up AUD and OUD Reports she has been enjoying walking more--feels like it helps clear her mind Saw PCP recently --Started omeprazole for reflux Broke her toe recently after a fall ---painful when she walks. Feels that neuropathy is worsening waiting for disability zoom appeal Reports no alcohol use for the last 1-2 months Denies any cravings--avoiding situations that are triggering to her Review of Systems Const Reports as per HPI Physical Exam Const General: cooperative, healthy appearing and well groomed Orientation/consciousness: patient oriented x3 Limitations: no limitations Neuro General: patient oriented x3 Assessment & Plan Assessment & Plan (1) Opioid use disorder, moderate, in sustained remission: Code(s): F11.21 - Opioid dependence, in remission Category: Medical Plan: * continue suboxone at current dose * follow up 8 weeks (2) Alcohol use disorder, moderate, dependence: Code(s): F10.20 - Alcohol dependence, uncomplicated Category: Medical Plan: * risk reduction discussion Medications: Refilled buprenorphine-naloxone 8-2 mg (Suboxone) 1 film sublingual BID 60 ea 1RF PFSH Medical History (Updated 08/09/24 @ 14:15 by Shelia Wilde CNP) Opioid abuse delivery delivered Family History Father No family history of coronary artery disease Mother No family history of coronary artery disease Social History Household Members: Children Housing: Apartment Do you presently have visiting nurse or other home services: No Alcohol intake: current Alcohol intake frequency: 3 or more drinks per day Patient Tobacco Use Status: Never used Tobacco Substance Use Type: Heroin service: No Current occupational status: employed
== END 2024-10-04 14:26 | disposition home or self-care (01) ==
PROVIDERS: PCP Family Medicine; Visit Provider Nurse Practitioner Psychiatric/Mental Health
DX: F11.21 Opioid dependence, in remission (principal); F10.20 Alcohol dependence, uncomplicated
CPT/HCPCS: 99214

== ENCOUNTER → 2024-10-04 13:58 | Outpatient (BNVA) | payer MEDICAID, SELFPAY | PROVIDERS: PCP Family Medicine; Visit Provider Nurse Practitioner Psychiatric/Mental Health | DX: F10.20 Alcohol dependence, uncomplicated (principal); F11.20 Opioid dependence, uncomplicated; Z79.899 Other long term (current) drug therapy | CPT/HCPCS: 99212 ==

== ENCOUNTER 2024-12-29 10:49 | Outpatient (AMB) | payer MEDICAID, SELFPAY ==
--- NOTE | 2024-12-29 11:11 | A.OFFVISCC_ITS ---
Intake Visit Reasons: MAT Office Allergies Seasonal Allergies Allergy (Mild, Verified 01/05/24 13:00) Itchy Eyes HPI HPI MAT Office: Details: Patient presents for follow up for OUD and AUD Currently prescribed Suboxone 8mg BID Tolerating current dose Still taking Acamprosate PCP appt next week Reports she was seen in ED recently for hemorrhoids Living in [facility] in [place] --no issues there, hopeful she will secure hous ing soon Review of Systems Const Reports as per HPI and Reports difficulty sleeping Psych Reports difficulty concentrating Physical Exam Const General: cooperative, healthy appearing and well groomed Orientation/consciousness: patient oriented x3 Limitations: no limitations Neuro General: patient oriented x3 [facility] Medical History (Updated 08/09/24 @ 14:15 by Shelia Wilde CNP) Opioid abuse delivery delivered Family History Father No family history of coronary artery disease Mother No family history of coronary artery disease Social History Household Members: Children Housing: Apartment Do you presently have visiting nurse or other home services: No Alcohol intake: current Alcohol intake frequency: 3 or more drinks per day Patient Tobacco Use Status: Never used Tobacco Substance Use Type: Heroin service: No Current occupational status: employed Assessment & Plan Assessment & Plan (1) Opioid use disorder, moderate, in sustained remission: Code(s): F11.21 - Opioid dependence, in remission Category: Medical Plan: * continue suboxone at current dose * follow up 8 weeks (2) Alcohol use disorder, moderate, dependence: Code(s): F10.20 - Alcohol dependence, uncomplicated Category: Medical Plan: * risk reduction discussion Medications: Refilled buprenorphine-naloxone 8-2 mg (Suboxone) 1 film sublingual BID 60 ea 1RF
== END 2024-12-29 11:23 | disposition home or self-care (01) ==
PROVIDERS: PCP Family Medicine; Visit Provider Nurse Practitioner Psychiatric/Mental Health
DX: F11.21 Opioid dependence, in remission (principal); F10.20 Alcohol dependence, uncomplicated
CPT/HCPCS: 99213

== ENCOUNTER → 2024-12-29 10:49 | Outpatient (BNVA) | payer MEDICAID, SELFPAY | PROVIDERS: PCP Family Medicine; Visit Provider Nurse Practitioner Psychiatric/Mental Health | DX: F11.20 Opioid dependence, uncomplicated (principal); F10.20 Alcohol dependence, uncomplicated | CPT/HCPCS: 99212 ==

== ENCOUNTER 2025-03-19 14:58 | Outpatient (AMB) | payer MEDICAID, SELFPAY ==
--- NOTE | 2025-03-19 15:03 | A.OFFVIS_ITS ---
Vital Signs 03/19/25 15:06 Pulse 88 Pulse Oximetry (%) 98 Oxygen Delivery Method Room Air Intake Visit Reasons: MAT Allergies Seasonal Allergies Allergy (Mild, Verified 03/19/25 15:06) Itchy Eyes HPI HPI MAT: Details: She is still waiting on better housing. She has no complaints otherwise and is staying sober. [facility] Medical History Opioid abuse delivery delivered Family History Father No family history of coronary artery disease Mother No family history of coronary artery disease Social History Household Members: Children Housing: Apartment Do you presently have visiting nurse or other home services: No Alcohol intake: current Alcohol intake frequency: 3 or more drinks per day Patient Tobacco Use Status: Never used Tobacco Substance Use Type: Heroin service: No Current occupational status: employed Review of Systems Const All systems reviewed & are unremarkable except as noted in HPI and below Physical Exam Vital Signs: Last Vital Signs Pulse 88 03/19/25 15:06 Pulse Ox 98 03/19/25 15:06 Oxygen Delivery Method Room Air 03/19/25 15:06 Const General: cooperative Assessment & Plan Assessment & Plan (1) Opioid use disorder, moderate, in sustained remission: Comment: She is doing well Code(s): F11.21 - Opioid dependence, in remission Category: Medical Plan: Would continue Suboxone 8/2 bid See us in two months. Medications: New buprenorphine-naloxone 8-2 mg (Suboxone) 1 film sublingual BID 60 ea 1RF 30 days Coding Level of Care Code Est Pt Level 3 (91276) Diagnoses Opioid use disorder, moderate, in sustained remission F11.21
[2025-03-19 15:06] VITALS: PULSE 88; O2SAT 98
== END 2025-03-19 15:54 | disposition home or self-care (01) ==
LOC: HO.HCC 14:59
PROVIDERS: PCP Family Medicine; Visit Provider Internal Medicine
DX: F11.21 Opioid dependence, in remission (principal)
CPT/HCPCS: 99213

== ENCOUNTER → 2025-03-19 14:58 | Outpatient (BNVA) | payer MEDICAID, SELFPAY | PROVIDERS: PCP Family Medicine; Visit Provider Internal Medicine | DX: F11.21 Opioid dependence, in remission (principal) | CPT/HCPCS: 99212 ==

== ENCOUNTER 2025-04-15 21:54 | Emergency (ER) | payer MEDICAID, SELFPAY ==
[2025-04-15 22:02] VITALS: BP 103/63; PULSE 88; RESP 13; TEMP 36.6; O2SAT 91; BMI 27.8
--- NOTE | 2025-04-15 22:16 | ECG_ITS ---
Test Reason : ABD PAIN Blood Pressure : */* mmHG Vent. Rate : 85 BPM Atrial Rate : 85 BPM P-R Int : 178 ms QRS Dur : 100 ms QT Int : 414 ms P-R-T Axes : 45 -13 14 degrees QTcB Int : 492 ms Normal sinus rhythm Prolonged QT Abnormal ECG When compared with ECG of 04-Aug-2022 20:17, Nonspecific T wave abnormality no longer evident in Anterior leads Referred By: Generic ED Physician Electronically Signed By: Milton Ayala
--- NOTE | 2025-04-15 22:26 | ED_ITS ---
HPI - Abdominal Pain General Chief Complaint: Abdominal Pain Stated Complaint: blood in stool, hx hemorrhoid's abd cramps nausea Time Seen by Provider: 04/15/25 22:25 Source: patient Mode of arrival: ambulatory Limitations: no limitations History of Present Illness ED Provider: HPI narrative: Patient is homeless for last few months also alcoholic does have a history of hemorrhoids complaining of bright red blood per rectum every time she moves her bowels been constipated for last 5 days not eating much drinking all the time Related Data Home Medications ?Medication ?Instructions ?Recorded ?Confirmed gabapentin 300 mg capsule 300 mg PO BEDTIME 10/04/24 10/04/24 Previous Rx's ?Medication ?Instructions ?Recorded walker (Ultra-Light Rollator misc) #1 ea 03/28/22 ibuprofen 600 mg tablet 600 mg PO Q6H PRN pain 30 days 10/11/23 #120 tabs amitriptyline 150 mg tablet 150 mg PO BEDTIME #30 tabs 04/03/24 acamprosate 333 mg tablet,delayed 666 mg (2 x 333 mg) PO TID #180 05/18/24 release tabs fluoxetine 40 mg capsule 40 mg PO DAILY #90 caps 10/23/24 buprenorphine 8 mg-naloxone 2 mg 1 film sublingual BID #60 ea 12/29/24 sublingual film (Suboxone) buprenorphine 8 mg-naloxone 2 mg 1 film sublingual BID 30 days #60 03/19/25 sublingual film (Suboxone) ea hydrocortisone acetate 25 mg 25 mg NV BID #12 ea 04/16/25 rectal suppository (Anusol-HC) polyethylene glycol 3350 17 17 g PO DAILY #510 grams 04/16/25 gram/dose oral powder (Miralax) Allergies Allergy/AdvReac Type Severity Reaction Status Date / Time Seasonal Allergies Allergy Mild Itchy Eyes Verified 04/15/25 22:02 Review of Systems Review of Systems Yes all other systems are reviewed and are negative PMFSH Past Medical History Medical History Opioid abuse delivery delivered Family History Family History Father No family history of coronary artery disease Mother No family history of coronary artery disease Social History Social History Household Members: Children Housing: Apartment Do you presently have visiting nurse or other home services: No Alcohol intake: current Alcohol intake frequency: 3 or more drinks per day Patient Tobacco Use Status: Never used Tobacco Substance Use Type: Heroin Advance Directives: No Advance Directives Information Provided: No service: No Current occupational status: employed Physical Exam ED Vital Signs: Vital Signs - 24 hr 04/16/25 03:38 04/16/25 06:31 04/16/25 06:44 Temperature 97.6 F 97.9 F 97.9 F Pulse Rate 82 88 88 Respiratory Rate 20 18 18 Blood Pressure 121/80 113/70 113/70 Pulse Oximetry 97 97 97 Oxygen Delivery Method Room Air Room Air Room Air BMI result Body Mass Index 27.8 Appearance: Alert. Oriented X3. No acute distress. Eyes: PERRLA, No Nystagmus ENT: Pharynx normal. Oral Mucosa moist Neck: Normal inspection. Neck supple. CVS: Normal heart rate and rhythm. Pulses normal. Respiratory: No respiratory distress. Equal air entry bilateral, no wheezing/rales/rhonchi Abdomen: Soft and nontender. Bowel sounds are present, no mass palpable, no CVA tenderness Skin: Skin warm and dry. Normal skin color. Normal skin turgor. Extremities: No lower extremity edema. No calf tenderness Neuro: Oriented X 3. No motor deficit. No sensory deficit.No cerebellar signs , cranial nerves II-XII intact Medical Decision Making Medical Decision Making [facility] Narrative: Patient with hemorrhoids constipation alcohol use will prescribe Anusol suppository and MiraLax Differential Diagnosis Differential Diagnoses: The differential diagnosis associated with the presentation includes Lab Data [facility] Lab Attestation statement: I reviewed the patient's lab results. 04/15/25 23:00 04/15/25 23:00 Labs: Lab Results 04/15/25 04/16/25 Range/Units 23:00 01:26 WBC 7.0 (4.8-10.8) X10*3/uL RBC 3.51 L (4.20-5.50) X10*6/uL Hgb 12.0 (12.0-16.0) g/dl Hct 34.4 L (37.0-47.0) % MCV 98.0 (80.0-98.0) fL MCH 34.2 H (27.0-33.0) pg MCHC 34.9 (31.0-35.0) g/dl RDW 14.8 (11.0-16.0) % Plt Count 222 D (160-400) X10*3/uL MPV 9.4 (9.4-12.3) fL Immature Gran % (Auto) 0.4 (0.0-0.4) % Neut % (Auto) 59.6 (45-73) % Lymph % (Auto) 29.6 (20-40) % [place] % (Auto) 4.4 (2-11) % Eos % (Auto) 4.9 H (0-4) % Baso % (Auto) 1.1 (0-2) % Lymph # (Auto) 2.1 (1.2-4.9) X10*3/uL [place] # (Auto) 0.3 (0.1-1.2) X10*3/uL Eos # (Auto) 0.3 (0.0-0.4) X10*3/uL Baso # (Auto) 0.1 (0.0-0.2) X10*3/uL Abs Immat Gran (auto) 0.03 (0.00-0.03) X10*3/uL Absolute Neuts (auto) 4.2 (2.0-8.3) x10*3/uL Absolute Nucleated RBC 0.000 (0.0-0.012) X10*3/uL Nucleated RBC % (auto) 0.0 (0.0-0.2) /100WBC Sodium 142 (135-145) mmol/L Potassium 3.7 (3.3-5.1) mmol/L Chloride 109 H (96-108) mmol/L Carbon Dioxide 23 (22-29) mmol/L Anion Gap 14 (12-20) BUN 7 L (9-16) mg/dL Creatinine 0.51 (0.5-1.4) mg/dL Estim Creat Clear Calc 121.0 Estimated GFR > 60 Fasting Glucose 98 (60-99) mg/dL Calcium 8.7 (8.4-10.2) mg/dL Total Bilirubin 0.3 (0.0-1.0) mg/dL AST 105 H (5-31) U/L ALT 40 H (0-31) U/L Alkaline Phosphatase 96 (39-117) U/L Troponin I High Sens < 2.7 (<3.5-17.0) ng/L Total Protein 6.8 (6.5-8.0) g/dL Albumin 3.4 L (3.5-5.0) g/dL Urine Color Yellow Urine Appearance Clear Urine pH 6.0 (5.0-9.0) Ur Specific [place] 1.010 (1.005-1.025) Urine Protein Negative (Neg-Trace) mg/dL Urine Glucose (UA) Negative (Negative) mg/dL Urine Ketones Negative (Negative) mg/dL Urine Blood Negative (Negative) Urine Nitrite Negative (Negative) Ur Leukocyte Esterase Trace H (Negative) Urine RBC 0-2 (0-2) /HPF Urine WBC 0-5 (0-5) /HPF Ur Squamous Epith Cells 0-2 (0-2) /HPF Urine Bacteria None Seen (None Seen) Hyaline Casts 0-2 (0-2) /LPF Ethyl Alcohol 229 mg/dL Medications Administered Discontinued Medications Generic Name Dose Route Start Last Admin Trade Name Freq PRN Reason Stop Dose Admin Magnesium Hydroxide 30 ml 04/15/25 22:43 04/15/25 23:23 Milk Of Magnesia 30 Ml Oral.Susp PO 04/15/25 22:44 30 ml ONCE ONE Administration Discharge Plan Discharge Clinical Impression: Constipation, Hemorrhoids Patient Disposition: Home, Self-Care Instructions: Constipation (DC), Hemorrhoids (DC) Additional Instructions: Use stool softener as advised Suppository for hemorrhoids Follow with your PCP Stop drinking alcohol Avoid constipation/straining Prescriptions: New polyethylene glycol 3350 [Miralax] 17 gram/dose powder 17 g PO DAILY Qty: 510 0RF hydrocortisone acetate [Anusol-HC] 25 mg suppository 25 mg NV BID Qty: 12 0RF No Action ibuprofen 600 mg tablet 600 mg PO Q6H PRN (Reason: pain) 30 Days Qty: 120 2RF amitriptyline 150 mg tablet 150 mg PO BEDTIME Qty: 30 0RF acamprosate 333 mg tablet,delayed release (DR/EC) 666 mg PO TID Qty: 180 3RF fluoxetine 40 mg capsule 40 mg PO DAILY Qty: 90 0RF (DME) Ultra-Light Rollator Misc See Rx Instructions .Route Qty: 1 0RF Rx Instructions: As directed buprenorphine-naloxone [Suboxone] 8-2 mg film 1 film sublingual BID Qty: 60 1RF gabapentin 300 mg capsule 300 mg PO BEDTIME buprenorphine-naloxone [Suboxone] 8-2 mg film 1 film sublingual BID 30 Days Qty: 60 1RF Stand Alone Forms: Work/School Release Interventions: ED Discharge Assessment Last Done: 04/16/25 06:44 Discharge Date/Time: 04/16/25 06:45 Print Language: Maori
[2025-04-15 23:04] LABS: MANUAL DIFF FLAG NO
[2025-04-15 23:05] LABS: Basophils Absolute Auto 0.1 X10*3/uL (0.0-0.2); Basophils Percent Auto 1.1 % (0-2); Eosinophils Absolute Auto 0.3 X10*3/uL (0.0-0.4); Eosinophils Percent Auto 4.9 % (0-4); Hematocrit 34.4 % (37.0-47.0); Imm Gran Abs Auto 0.03 X10*3/uL (0.00-0.03); Imm Gran Pct Auto 0.4 % (0.0-0.4); Lymphocytes Absolute Auto 2.1 X10*3/uL (1.2-4.9); Lymphocytes Percent Auto 29.6 % (20-40); Mean Corpuscular HGB Conc 34.9 g/dl (31.0-35.0); Mean Corpuscular Hemoglobin 34.2 pg (27.0-33.0); Mean Platelet Volume 9.4 fL (9.4-12.3); Monocytes Absolute Auto 0.3 X10*3/uL (0.1-1.2); Monocytes Percent Auto 4.4 % (2-11); Neutrophils Absolute Auto 4.2 x10*3/uL (2.0-8.3); Neutrophils Percent Auto 59.6 % (45-73); Platelet Count 222 X10*3/uL (160-400); Red Blood Count 3.51 X10*6/uL (4.20-5.50); Red Cell Distribution Width 14.8 % (11.0-16.0)
[2025-04-15 23:17] LABS: Ethanol 229 mg/dL
[2025-04-15] MEDS: Milk of Magnesia 30 ML ORAL.SUSP PO (23:23)
[2025-04-15 23:27] LABS: Alanine Aminotransferase 40 U/L (0-31); Albumin Level 3.4 g/dL (3.5-5.0); Alkaline Phosphatase 96 U/L (39-117); Anion Gap 14 (12-20); Aspartate Amino Transferase 105 U/L (5-31); Bilirubin Total 0.3 mg/dL (0.0-1.0); Blood Urea Nitrogen 7 mg/dL (9-16); Calcium 8.7 mg/dL (8.4-10.2); Carbon Dioxide 23 mmol/L (22-29); Chloride 109 mmol/L (96-108); Estimated Glomerular Filt Rate > 60; Glucose Fasting 98 mg/dL (60-99); Potassium 3.7 mmol/L (3.3-5.1); Sodium 142 mmol/L (135-145); Total Protein 6.8 g/dL (6.5-8.0); Troponin-I High Sensitivity < 2.7 ng/L (<3.5-17.0)
[2025-04-16 00:58] VITALS: BP 90/56; PULSE 80; RESP 18; TEMP 36.6; O2SAT 98
[2025-04-16 01:37] LABS: Appearance Urine Clear; Color Urine Yellow; Glucose Urine UA Negative (Negative); Leukocyte Esterase Urine Trace (Negative); Nitrite Urine Negative (Negative); UMIC TRIGGER UACC YES; Urine Blood Negative (Negative); Urine Ketones Negative (Negative); Urine Protein Negative (Neg-Trace)
[2025-04-16 01:41] LABS: Bacteria Urine None Seen (None Seen); Hyaline Casts Urine 0-2 /LPF (0-2); RBC Urine 0-2 /HPF (0-2); Squamous Epithelial Cell Urine 0-2 /HPF (0-2); WBC Urine 0-5 /HPF (0-5)
--- NOTE | 2025-04-16 01:55 | PC.NURSE ---
Pt ambulated to the bathroom and provided urine sample, pt reports feeling better
[2025-04-16 03:38] VITALS: BP 121/80; PULSE 82; RESP 20; TEMP 36.4; O2SAT 97
[2025-04-16 06:31] VITALS: BP 113/70; PULSE 88; RESP 18; TEMP 36.6; O2SAT 97
[2025-04-16 06:44] VITALS: BP 113/70; PULSE 88; RESP 18; TEMP 36.6; O2SAT 97
== END 2025-04-16 06:45 | disposition home or self-care (01) ==
PROVIDERS: Emergency Provider Internal Medicine; PCP Ophthalmology
DX: K59.00 Constipation, unspecified (principal); K64.9 Unspecified hemorrhoids; F10.20 Alcohol dependence, uncomplicated; Y90.7 Blood alcohol level of 200-239 mg/100 ml; Z79.899 Other long term (current) drug therapy
CPT/HCPCS: 36415; 51798; 80053; 80307; 81001; 84484; 85025; 93005; 99283; 99284

== ENCOUNTER → 2025-04-15 22:16 | Outpatient (BNV) | payer MEDICAID, SELFPAY | PROVIDERS: Emergency Provider Internal Medicine; PCP Ophthalmology; Visit Provider Internal Medicine Cardiovascular Disease | DX: R94.31 Abnormal electrocardiogram [ECG] [EKG] (principal); R10.9 Unspecified abdominal pain | CPT/HCPCS: 93010 ==

== ENCOUNTER 2025-05-16 13:02 | Outpatient (AMB) | payer MEDICAID, SELFPAY ==
--- NOTE | 2025-05-16 13:08 | A.OFFVIS_ITS ---
Vital Signs 05/16/25 13:09 Height 5 ft 4 in Weight 166 lb BMI 28.5 BP 126/76 Pulse 66 Pulse Oximetry (%) 99 Intake Visit Reasons: MAT Allergies Seasonal Allergies Allergy (Mild, Verified 05/16/25 13:09) Itchy Eyes HPI HPI MAT: Details: She has been doing well and has no complaints. [facility] Medical History Opioid abuse delivery delivered Family History Father No family history of coronary artery disease Mother No family history of coronary artery disease Social History Household Members: Children Housing: Apartment Do you presently have visiting nurse or other home services: No Alcohol intake: current Alcohol intake frequency: 3 or more drinks per day Patient Tobacco Use Status: Never used Tobacco Substance Use Type: Heroin service: No Current occupational status: employed Review of Systems Const All systems reviewed & are unremarkable except as noted in HPI and below Physical Exam Vital Signs: Last Vital Signs Pulse 66 05/16/25 13:09 BP 126/76 05/16/25 13:09 Pulse Ox 99 05/16/25 13:09 BMI result Body Mass Index 28.5 Const General: cooperative Assessment & Plan Assessment & Plan (1) Opioid use disorder, moderate, in sustained remission: Comment: She is doing well Code(s): F11.21 - Opioid dependence, in remission Category: Medical Plan: Would continue current plan. See as scheduled. Medications: New buprenorphine-naloxone 8-2 mg (Suboxone) 1 film sublingual BID 60 ea 1RF 30 days Coding Level of Care Code Est Pt Level 3 (77297) Diagnoses Opioid use disorder, moderate, in sustained remission F11.21
[2025-05-16 13:09] VITALS: BP 126/76; PULSE 66; O2SAT 99; BMI 28.5
== END 2025-05-16 13:31 | disposition home or self-care (01) ==
LOC: HO.HCC 13:03
PROVIDERS: PCP Family Medicine; Visit Provider Internal Medicine
DX: F11.21 Opioid dependence, in remission (principal)
CPT/HCPCS: 99213

== ENCOUNTER → 2025-05-16 13:02 | Outpatient (BNVA) | payer MEDICAID, SELFPAY | PROVIDERS: PCP Family Medicine; Visit Provider Internal Medicine | DX: F11.21 Opioid dependence, in remission (principal) | CPT/HCPCS: 99212 ==